=== PATIENT | male | born 1955 | race Caucasian/White ===

== ENCOUNTER 2017-07-31 05:23 | Inpatient (IN) | payer OTHER ==
[~2017-07-31] VITALS: Ht 180.3 cm; Wt 88.7 kg
[~2017-07-31 05:23] MED LIST: AMBI5TAB; CYCL5TAB PO; DIAZ5 PO; INDO75CA23 PO; LACTCAP7 PO; MINO50TA PO; OXYC-360 PO; TAB-TAB PO; VIAG25TA PO
[2017-07-31] MEDS ORDERED: VANCOMYCIN 1 GM/200 ML INJ 200 ML IV SCH (05:45)
[2017-07-31] MEDS ORDERED: FAMOTIDINE 20 MG/2 ML VIAL IV PUSH ONE (05:45)
[2017-07-31] MEDS ORDERED: DEXAMETHASONE SOD PHOS 20 MG/5 ML VIAL IV PUSH ONE (05:45)
[2017-07-31] MEDS ORDERED: ACETAMINOPHEN 1000 MG/100 ML 100 ML IV ONE (05:45)
[2017-07-31] MEDS ORDERED: SODIUM CHLORID 0.9% 500 ML IV PRN (05:45)
[2017-07-31] MEDS ORDERED: CHLORHEXIDINE GLUCONATE 2 % 1 PACK (2 CLOTHS) TOPICAL PRN (05:45)
[2017-07-31] MEDS ORDERED: LACTATED RINGER'S 1000 ML IV PRN (05:45)
[2017-07-31] MEDS ORDERED: CELECOXIB 200 MG CAP PO ONE (05:45)
[2017-07-31] MEDS ORDERED: METOPROLOL TARTRATE 25 MG TAB PO PRN (05:45)
[2017-07-31] MEDS ORDERED: ONDANSETRON HCL 4 MG/2 ML VIAL IV PUSH ONE (05:45)
[2017-07-31] MEDS ORDERED: CHLORHEXIDINE GLUCONATE 4% SOLN 120 ML BTL TOPICAL SCH (05:45)
[2017-07-31] MEDS ORDERED: POVIDONE IODINE 5% (ANTISEPSIS KIT) 4 APPLICATIONS EACH NARE PRN (05:45)
[2017-07-31] MEDS ORDERED: GABAPENTIN 300 MG CAP PO ONE (05:45)
[2017-07-31] MEDS ORDERED: CYMB60CA PO (05:58)
[2017-07-31] MEDS ORDERED: AMBI10TA PO (05:58)
[2017-07-31] MEDS ORDERED: DIAZ5 PO (05:58)
[2017-07-31] MEDS ORDERED: OXYC-395 PO (05:58)
[2017-07-31] MEDS ORDERED: CYMB30CA PO (05:58)
[2017-07-31] MEDS ORDERED: GENTAMICIN SULFATE 80 MG/2 ML VIAL ONE (06:16)
[2017-07-31] MEDS ORDERED: TRANEXAMIC ACID IV SCH (07:00)
[2017-07-31] MEDS ORDERED: SODIUM CHLORIDE 0.9% IV SCH (07:00)
[2017-07-31] MEDS ORDERED: BUPIVACAINE-EPI PF 0.25% INJ 20 ML, BUPIVACAINE LIPOSO PF 1.3% INJ 20 ML in SODIUM CHLO... P-ARTICULR SCH (07:00)
[2017-07-31] MEDS ORDERED: ASPI1CHW4 CHEW (07:37)
[2017-07-31] MEDS ORDERED: HYDR-3583 PO (07:37)
[2017-07-31] MEDS ORDERED: ceFAZolin INJ 1,000 MG VIAL IV ONE ×2 (08:19→12:00)
[2017-07-31] MEDS ORDERED: ONDANSETRON HCL 4 MG/2 ML VIAL IVP PRN (08:45)
--- NOTE | 2017-07-31 08:49 | PD.OP ---
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 My P.A. presence was necessary throughout this case for the manipulation and positioning of the surgical extremity. My P.A. was assisting me throughout the duration of this procedure. The skill set of a physician anesthesiologist assistant certified was medically necessary to complete this procedure. During the surgical case the operating room surgical technologist was working at the back table and the physician anesthesiologist assistant certified was directly assisting me. Operation and Findings: PLAN OF ACTIVITY Weight bear as tolerated. IMPLANTS USED DePuy Corail size [13] collared stem with a size [54] Perkinston Gription cup, [54 /36] Altrx poly liner, and a [36+1] ceramic Biolox ceramic head. DETAILS OF PROCEDURE: This patient has a long history of hip pain. 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 Patient has developed severe pain and is unable to ambulate without a walker. The patient had radiographic evidence of joint space narrowing with bone-on- bone arthritis and osteophytes around the acetabulum as well as the femoral head. There was also some cystic changes. The patient failed conservative treatment with pain medications, anti-inflammatories, physical therapy, assistive devices including a cane, as well as therapeutic injection of the hip. Patient's hip arthritis was limiting his ability to ambulate and perform activities of daily living. The patient wished to proceed with surgery and informed consent was obtained. Operative site was marked. I discussed both posterior approach and anterior approach with the patient and decision was made for anterior approach. Patient was brought to OR and placed on OR table. IV sedation and general anesthesia was administered by anesthesiologist. Patient positioned on a Sun table and was given IV antibiotics. Time-out procedure was performed. The hip and thigh were prepped with alcohol followed by Hibiclens. The thigh was draped in the usual sterile fashion. Clean Air Suite was used for this procedure. The procedure began with a 5-inch incision over the anterolateral thigh. Subcutaneous tissue was dissected with Bovie. The fascia over the tensa fasciae latae was incised. Care was taken to avoid injury to the lateral femoral cutaneous nerve. The tensor muscle was retracted laterally. Sartorius was retracted medially. Retractors were now placed. The reflected head of the rectus is now elevated. A capsulotomy was performed over the anterior head capsule. Sutures were placed to help retract the capsule. At this point the femoral head and neck were identified. With soft tissue protected, oscillating saw was used to make a cut through the femoral neck, the femoral head was now removed. At this point attention was turned to preparation of the acetabulum. The labrum was excised. The acetabulum was sequentially reamed up to size [54]. A Perkinston cup was now placed. Fluoroscopy was used to aid in identification of appropriate version. Cup was fully impacted and found to have excellent fit. Hole eliminator was now placed. The liner was now impacted into the cup. At this point the hip was externally rotated. A hook was placed around the proximal femur. The capsule was released off the lateral and medial femur. The hip was now extended and adducted. Retractors were placed around the proximal femur to allow for exposure. A box osteotome was used to remove the lateral cortex of the femoral neck. A broach was used to help lateralize the prosthesis. Canal finder was used to create a path down the canal. Next, the canal was sequentially broached up to size [13]. This was found to be an excellent fit. Calcar planer was placed. A standard head was placed, and the hip was reduced. The hip was found to have excellent stability with good range of motion. The leg lengths were measured under fluoroscopy and found to be equal compared to preoperatively. Trial broach was removed. The Corail stem was opened. Stem was fully impacted into the proximal femur in appropriate version. The femoral head was placed. The hip was again reduced. Fluoroscopy confirmed excellent alignment of prosthesis. The wound was thoroughly irrigated and capsule was closed with #1 Vicryl. The fascia over the tensor fasciae muscle was closed with #1 Vicryl, subcutaneous tissue was closed with 3-0 Vicryl and the skin was closed with emelia and Dermabond skin closure. The capsule layers, muscle, and subcutaneous tissue were injected with a mixture of saline and bupivicaine. Dressings were applied. The patient was transferred to Recovery Room in stable condition. Adis Koch MD Jul 31, 2017 08:49
[2017-07-31] MEDS ORDERED: DO NOT ADM ANY ANTICOAGULANT DRUGS PRN (09:17)
[2017-07-31] MEDS ORDERED: KETOROLAC TROMETHAMINE 30 MG/ML (IVP) VIAL IV PUSH SCH (09:45)
[2017-07-31] MEDS: ASPIRIN 81 MG CHEW TAB CHEW SCH ×2 (10:00→20:53)
[2017-07-31] MEDS ORDERED: ACETAMINOPHEN/HYDROcodone 325 MG/5 MG TAB PO PRN (10:00)
[2017-07-31] MEDS ORDERED: Post-op Orders (for Pharmacy) XX ONE (10:00)
[2017-07-31] MEDS: ACETAMINOPHEN 1000 MG/100 ML 100 ML IV SCH ×2 (10:00→20:54)
[2017-07-31] MEDS ORDERED: MORPHINE SULFATE 4 MG/ML INJ IV PUSH PRN (10:00)
[2017-07-31] MEDS ORDERED: ACETAMINOPHEN/HYDROcodone 325 MG/7.5 MG TAB PO PRN (10:00)
[2017-07-31] MEDS: LACTATED RINGER'S 1000 ML INJ 1,000 ML IV SCH ×3 (10:00→23:30)
[2017-07-31] MEDS ORDERED: TRANEXAMIC ACID INJ 1,000 MG in SODIUM CHLORIDE 0.9% INJ 100 ML IV ONE (10:00)
[2017-07-31] MEDS ORDERED: NALOXONE HCL 0.4 MG/ML AMP IV PUSH PRN (10:00)
[2017-07-31] MEDS ORDERED: *morphine SULFATE 8 MG/ML PERIprocedure ONLY ONE (10:08)
--- NOTE | 2017-07-31 10:37 | RADRPT ---
EXAM DATE/TIME: 07/31/2017 10:26 [facility] COMPARISON: No previous studies available for comparison. INDICATIONS : Post op left hip surgery. MEDICAL HISTORY : None. SURGICAL HISTORY : None. ENCOUNTER: Initial ACUITY: 1 day PAIN SCORE: 0/10 LOCATION: Left Hip and pelvis. FINDINGS: A lateral view of the left hip with AP pelvis was obtained. Post surgical changes following total lef t hip arthroplasty are noted. Acetabular and femoral components are well-seated in satisfactory align ed. There is no evidence of acute fracture. Mild to moderate arthropathy is noted of the right hip. There is joint space narrowing, subchondral s clerosis and marginal spurring. CONCLUSION: 1. Satisfactory postoperative appearance of left hip following total arthroplasty 2. Moderate arthropathy of the right hip. 3. No acute bony abnormalities. Rafita Nava MD on July 31, 2017 at 10:33 Board Certified Radiologist. This report was verified electronically.
[2017-07-31] MEDS ORDERED: *MEPERIDINE 25 MG INJ VIAL PERIprocedural Use ONLY ONE (11:35)
[2017-07-31] MEDS ORDERED: STERILE WATER FOR INJECTION 20 ML VIAL IV ONE (12:00)
[2017-07-31] MEDS ORDERED: LIDOCAINE HCL 1% PF 5 ML SYRINGE OTHER ONE (12:00)
[2017-07-31] MEDS ORDERED: ePHEDrine/NS 25 MG/5 ML SYRINGE IV ONE (12:00)
[2017-07-31] MEDS ORDERED: PHENYLEPH/NS 1000 MCG/10 ML SYR IV ONE (12:00)
[2017-07-31] MEDS ORDERED: NEOSTIGMINE 5 MG/5 ML SYRINGE IV PUSH ONE (12:00)
[2017-07-31] MEDS ORDERED: PROPOFOL 200 MG/20 ML AMP IV ONE (12:00)
[2017-07-31] MEDS ORDERED: GLYCOPYRROLATE 1 MG/5 ML SYRINGE IV PUSH ONE (12:00)
[2017-07-31] MEDS ORDERED: ROCURONIUM INJ 50 MG/5 ML SYRINGE IV PUSH ONE (12:00)
[2017-07-31] MEDS ORDERED: LABETALOL HCL 100 MG/20 ML VIAL IV ONE (12:00)
[2017-07-31] MEDS ORDERED: LACTATED RINGER'S 1000 ML INJ 2,000 ML IV ONE (12:00)
--- NOTE | 2017-07-31 12:59 | RADRPT ---
EXAM DATE/TIME: 07/31/2017 07:27 [facility] COMPARISON: No previous studies available for comparison. INDICATIONS : Left total hip arthroplasty. MEDICAL HISTORY : None. SURGICAL HISTORY : None. ENCOUNTER: Initial ACUITY: 1 day PAIN SCORE: Non-responsive. LOCATION: Left hip FINDINGS: 3 spot fluoroscopic images obtained in the operating room during a procedure demonstrate acetabular a nd proximal femoral hardware in place related to total hip arthroplasty. The components appear non-ce mented and the femoral component has a medial collar. No unexpected finding is seen. CONCLUSION: Left total hip arthroplasty, as above. Ellis Barkley MD on July 31, 2017 at 12:57 Board Certified Radiologist. This report was verified electronically.
[2017-07-31] MEDS ORDERED: CEFAZOLIN INJ 2,000 MG in SODIUM CHLORIDE 0.9% INJ 100 ML IV SCH (13:00)
[2017-07-31] MEDS: ACETAMINOPHEN/HYDROcodone 325 MG/10 MG TAB PO PRN ×3 (13:06→20:54)
[2017-07-31] MEDS: CELECOXIB 200 MG CAP PO SCH ×2 (13:10→20:53)
[2017-07-31 15:37] VITALS: BP 155/77; PULSE 84; RESP 19; TEMP 97.7; O2SAT 98
[2017-07-31] MEDS: VANCOMYCIN INJ 1,000 MG in SODIUM CHLOR 0.9% 250 ML INJ 250 ML IV SCH (17:44)
[2017-07-31] MEDS: ceFAZolin 2 GM PREMIX 50 ML IV SCH (18:40)
[2017-07-31 20:00] VITALS: BP 149/72; PULSE 81; RESP 18; TEMP 98.3; O2SAT 95
[2017-08-01] VITALS (7 sets, daily range): BP systolic 132–188; BP diastolic 70–91; PULSE 65–93; RESP 16–19; TEMP 97.9–98.4; O2SAT 93–98
[2017-08-01] MEDS: ceFAZolin 2 GM PREMIX 50 ML IV SCH (00:03)
[2017-08-01] MEDS: ACETAMINOPHEN/HYDROcodone 325 MG/10 MG TAB PO PRN ×3 (00:03→06:15)
[2017-08-01 05:05] LABS: HEMATOCRIT 35.8 % (39.0-51.0); HEMOGLOBIN 12.2 GM/DL (13.0-17.0)
[2017-08-01] MEDS: VANCOMYCIN INJ 1,000 MG in SODIUM CHLOR 0.9% 250 ML INJ 250 ML IV SCH (06:15)
[2017-08-01] MEDS ORDERED: PERC10TA27 PO (06:27)
--- NOTE | 2017-08-01 06:29 | PD.ORT.PN ---
Subjective Subjective Remarks POD 1 s/p Left GRACE states pain controlled overnight and walked down hallway with therapy. reports that started increased hip pain 1 houir ago Objective Vitals Vital Signs Date Time Temp Pulse Resp B/P (MAP) Pulse Ox O2 Delivery O2 Flow Rate FiO2 08/01/17 04:00 98.3 79 18 165/87 (113) 97 08/01/17 00:00 97.9 84 18 162/86 (111) 97 07/31/17 21:53 21 07/31/17 20:00 98.3 81 18 149/72 (97) 95 07/31/17 15:37 97.7 84 19 155/77 (103) 98 07/31/17 11:45 97.6 86 20 141/82 (101) 97 Nasal Cannula 2 07/31/17 11:15 92 20 149/92 (111) 97 Nasal Cannula 2 07/31/17 10:15 92 20 157/83 (107) 97 Nasal Cannula 2 07/31/17 10:00 91 20 157/93 (114) 100 Nasal Cannula 2 07/31/17 09:45 91 20 156/86 (109) 100 Nasal Cannula 2 07/31/17 09:30 86 20 150/82 (104) 98 Nasal Cannula 2 07/31/17 09:16 97.9 91 20 148/78 (101) 94 Nasal Cannula 2 I/O 07/31/17 07/31/17 07/31/17 08/01/17 08/01/17 08/01/17 07:00 15:00 23:00 07:00 15:00 23:00 Intake Total 2000 ml Output Total 1300 ml Balance 700 ml Other 2000 ml Output Urine Total 1000 ml Estimated Blood Loss 300 ml # Voids 2 Result Diagram: 08/01/17 0415 Imaging Last 24 hours Impressions Hip and Pelvis X-Ray 07/31/17 0843 Signed Impressions: Service Date/Time: July 10:26 - CONCLUSION: 1. Satisfactory postoperative appearance of left hip following total arthroplasty 2. Moderate arthropathy of the right hip. 3. No acute bony abnormalities. Rafita Nava MD Objective Remarks LLE: dressing claen and dry.intact. NVI Assessment & Plan Assessment and Plan 1) Left Anterior GRACE - POD 1 -WBAT -work with therapy -maintain dressing on hip -begin daily dressing changes with primapore on POD 6 -CM for rehab -patient expresses desire to go to rehab -plan for Dc when arrangements made -cleared for DC -f/u with [facility] or [facility] ni 2 weeks Harsh Silva/First Kirsten FRAGOSO Aug 01, 2017 06:29
[2017-08-01] MEDS ORDERED: ZOLPIDEM TARTRATE 10 MG TAB PO PRN (06:30)
[2017-08-01] MEDS: ASPIRIN 81 MG CHEW TAB CHEW SCH ×2 (09:07→20:14)
[2017-08-01] MEDS: CELECOXIB 200 MG CAP PO SCH ×2 (09:07→20:14)
[2017-08-01] MEDS: CYCLOBENZAPRINE HCL 10 MG TAB PO SCH ×2 (09:07→20:15)
[2017-08-01] MEDS: DULoxetine HCl DR 30 MG CAP PO SCH (09:07)
[2017-08-01] MEDS: oxyCODONE/ACETAMINOPHEN 10 MG/325 MG TAB PO PRN ×5 (09:09→23:51)
[2017-08-01] MEDS: ACETAMINOPHEN 1000 MG/100 ML 100 ML IV SCH ×2 (10:37→21:54)
[2017-08-01] MEDS: LACTATED RINGER'S 1000 ML INJ 1,000 ML IV SCH (11:00)
[2017-08-01] MEDS: DOCUSATE SODIUM 100 MG CAP PO SCH (20:14)
[2017-08-01] MEDS: DULoxetine HCl DR 60 MG CAP PO SCH (20:15)
[2017-08-02 00:08] VITALS: BP 168/83; PULSE 85; RESP 18; TEMP 98.7; O2SAT 97
[2017-08-02] MEDS: oxyCODONE/ACETAMINOPHEN 10 MG/325 MG TAB PO PRN ×5 (04:19→20:20)
[2017-08-02 08:00] VITALS: BP 179/94; PULSE 89; RESP 16; TEMP 98.4; O2SAT 96
[2017-08-02] MEDS: DULoxetine HCl DR 30 MG CAP PO SCH (08:26)
[2017-08-02] MEDS: ASPIRIN 81 MG CHEW TAB CHEW SCH ×2 (08:27→20:21)
[2017-08-02] MEDS: CYCLOBENZAPRINE HCL 10 MG TAB PO SCH ×2 (08:27→20:20)
[2017-08-02] MEDS: DOCUSATE SODIUM 100 MG CAP PO SCH ×2 (08:27→20:20)
[2017-08-02] MEDS: CELECOXIB 200 MG CAP PO SCH ×2 (08:27→20:18)
[2017-08-02 12:00] VITALS: BP 160/82; PULSE 80; RESP 16; TEMP 98.3; O2SAT 100
[2017-08-02] MEDS: LACTATED RINGER'S 1000 ML INJ 1,000 ML IV SCH (12:00)
[2017-08-02 16:00] VITALS: BP 165/87; PULSE 103; RESP 16; TEMP 98.7; O2SAT 95
[2017-08-02 20:12] VITALS: BP 139/88; PULSE 110; RESP 19; TEMP 98.5; O2SAT 94
--- NOTE | 2017-08-02 20:18 | PD.ORT.PN ---
Subjective Subjective Remarks no issues. Objective Vitals Vital Signs Date Time Temp Pulse Resp B/P (MAP) Pulse Ox O2 Delivery O2 Flow Rate FiO2 08/02/17 16:00 98.7 103 16 165/87 (113) 95 08/02/17 08:00 98.4 89 16 179/94 (122) 96 08/02/17 00:08 98.7 85 18 168/83 (111) 97 I/O 08/01/17 08/01/17 08/01/17 08/02/17 08/02/17 08/02/17 07:00 15:00 23:00 07:00 15:00 23:00 Intake Total 480 ml 1400 ml 360 ml 700 ml Output Total 1200 ml 1600 ml 2225 ml Balance -720 ml -200 ml -1865 ml 700 ml Intake Oral 480 ml 1300 ml 360 ml 700 ml IV Total 100 ml Output Urine Total 1200 ml 1600 ml 2225 ml # Voids 1 3 # Bowel Movements 0 1 Result Diagram: 08/01/17 0415 Imaging Last 24 hours Impressions Hip and Pelvis X-Ray 07/31/17 0843 Signed Impressions: Service Date/Time: July 10:26 - CONCLUSION: 1. Satisfactory postoperative appearance of left hip following total arthroplasty 2. Moderate arthropathy of the right hip. 3. No acute bony abnormalities. Rafita Nava MD Objective Remarks LLE: dressing claen and dry.intact. NVI Assessment & Plan Assessment and Plan 1) Left Anterior GRACE - POD 2 doing well -WBAT -maintain dressing on hip -begin daily dressing changes with primapore on POD 6 -CM for rehab -patient expresses desire to go to rehab -DC planning -cleared for DC -f/u with [facility] or [facility] ni 2 weeks Akil Hunt Jr., MD Aug 02, 2017 20:18
[2017-08-02] MEDS: DULoxetine HCl DR 60 MG CAP PO SCH (20:21)
[2017-08-03] MEDS: oxyCODONE/ACETAMINOPHEN 10 MG/325 MG TAB PO PRN ×4 (00:29→12:16)
[2017-08-03 00:30] VITALS: BP 142/82; PULSE 95; RESP 18; TEMP 98.3; O2SAT 96
[2017-08-03] MEDS: LACTATED RINGER'S 1000 ML INJ 1,000 ML IV SCH ×2 (00:30→13:00)
[2017-08-03 08:00] VITALS: BP 146/77; PULSE 91; RESP 16; TEMP 98; O2SAT 98
[2017-08-03] MEDS: ASPIRIN 81 MG CHEW TAB CHEW SCH (08:31)
[2017-08-03] MEDS: DULoxetine HCl DR 30 MG CAP PO SCH (08:31)
[2017-08-03] MEDS: CELECOXIB 200 MG CAP PO SCH (08:32)
[2017-08-03] MEDS: CYCLOBENZAPRINE HCL 10 MG TAB PO SCH (08:32)
[2017-08-03] MEDS: DOCUSATE SODIUM 100 MG CAP PO SCH (08:32)
--- NOTE | 2017-08-03 14:16 | PD.ORT.PN ---
Subjective Subjective Remarks no issues. Objective Vitals Vital Signs Date Time Temp Pulse Resp B/P (MAP) Pulse Ox O2 Delivery O2 Flow Rate FiO2 08/03/17 08:00 98.0 91 16 146/77 (100) 98 08/03/17 05:24 18 08/03/17 00:30 98.3 95 18 142/82 (102) 96 08/02/17 21:41 Room Air 08/02/17 21:33 21 08/02/17 20:12 98.5 110 19 139/88 (105) 94 08/02/17 16:00 98.7 103 16 165/87 (113) 95 I/O 08/02/17 08/02/17 08/02/17 08/03/17 08/03/17 08/03/17 07:00 15:00 23:00 07:00 15:00 23:00 Intake Total 360 ml 700 ml 480 ml Output Total 2225 ml Balance -1865 ml 700 ml 480 ml Intake Oral 360 ml 700 ml 480 ml Output Urine Total 2225 ml # Voids 1 3 1 # Bowel Movements 1 0 Result Diagram: 08/01/17 0415 Imaging Last 24 hours Impressions Hip and Pelvis X-Ray 07/31/17 0843 Signed Impressions: Service Date/Time: July 10:26 - CONCLUSION: 1. Satisfactory postoperative appearance of left hip following total arthroplasty 2. Moderate arthropathy of the right hip. 3. No acute bony abnormalities. Rafita Nava MD Objective Remarks LLE: dressing claen and dry.intact. NVI Assessment & Plan Assessment and Plan 1) Left Anterior GRACE - POD 3 doing well -WBAT -maintain dressing on hip -begin daily dressing changes with primapore on POD 6 -CM for rehab -patient expresses desire to go to rehab -DC today -f/u with [facility] or [facility] fong 2 weeks Akil Hunt Jr., MD Aug 03, 2017 14:16
== END 2017-08-03 14:39 | disposition home health service (06) | DRG 470 ==
LOC: HSDI 05:23 → N06B 12:05
PROVIDERS: ADMIT Orthopaedic Surgery Orthopaedic Trauma; ATTEND Orthopaedic Surgery Orthopaedic Trauma
PROC: 0SRB04A Replacement of Left Hip Joint with Ceramic on Polyethylene Synthetic Substitute, Uncemented, Open Approach (ICD-10-PCS; principal; 2017-07-31 06:51)
DX: M87.852 Other osteonecrosis, left femur (principal); F32.9 Major depressive disorder, single episode, unspecified; B19.20 Unspecified viral hepatitis C without hepatic coma; Z87.891 Personal history of nicotine dependence
CPT/HCPCS: 73501; 73502; 76000; 85014; 85018; 86850; 86900; 86901; 88305; 88311; C1776; C9290; J0131; J0690; J1100; J1580; J1885; J2175; J2270; J2370; J2405; J2710; J3370; J7050; J7120

== ENCOUNTER 2017-09-05 06:48 | Inpatient (IN) | payer OTHER ==
[~2017-09-05] VITALS: Ht 180.3 cm; Wt 91.0 kg
[~2017-09-05 06:48] MED LIST changes: +AMBI10TA PO; -AMBI5TAB; +ASPI1CHW4 CHEW; +CYMB30CA PO; +CYMB60CA PO; +HYDR-3583 PO; -INDO75CA23 PO; -LACTCAP7 PO; -MINO50TA PO; -OXYC-360 PO; +PERC10TA27 PO; -TAB-TAB PO; -VIAG25TA PO
[2017-09-05] MEDS ORDERED: LACTATED RINGER'S 1000 ML IV PRN (07:15)
[2017-09-05] MEDS ORDERED: CHLORHEXIDINE GLUCONATE 4% SOLN 120 ML BTL TOPICAL SCH (07:15)
[2017-09-05] MEDS ORDERED: DEXAMETHASONE SOD PHOS 20 MG/5 ML VIAL IV PUSH ONE (07:15)
[2017-09-05] MEDS ORDERED: EXPAREL PERI-ARTICULAR INJECTION (TOTAL VOL. 60 ML) P-ARTICULR SCH ×2 (07:15)
[2017-09-05] MEDS ORDERED: GABAPENTIN 300 MG CAP PO ONE (07:15)
[2017-09-05] MEDS ORDERED: ACETAMINOPHEN 1000 MG/100 ML 100 ML IV ONE ×2 (07:15→15:54)
[2017-09-05] MEDS ORDERED: SODIUM CHLORID 0.9% 500 ML IV PRN (07:15)
[2017-09-05] MEDS ORDERED: CELECOXIB 200 MG CAP PO ONE (07:15)
[2017-09-05] MEDS ORDERED: METOPROLOL TARTRATE 25 MG TAB PO PRN (07:15)
[2017-09-05] MEDS ORDERED: ceFAZolin 2 GM PREMIX 50 ML IV SCH (07:15)
[2017-09-05] MEDS ORDERED: POVIDONE IODINE 5% (ANTISEPSIS KIT) 4 APPLICATIONS EACH NARE PRN (07:15)
[2017-09-05] MEDS ORDERED: VANCOMYCIN 1000 MG/NS 250 ML (for <70 kg) IV SCH ×2 (07:15)
[2017-09-05] MEDS ORDERED: ONDANSETRON HCL 4 MG/2 ML VIAL IV PUSH ONE ×2 (07:15→12:00)
[2017-09-05] MEDS ORDERED: CHLORHEXIDINE GLUCONATE 2 % 1 PACK (2 CLOTHS) TOPICAL PRN (07:15)
[2017-09-05] MEDS ORDERED: FAMOTIDINE 20 MG/2 ML VIAL IV PUSH ONE (07:15)
[2017-09-05] MEDS ORDERED: HYDR-3580 PO (08:03)
[2017-09-05] MEDS ORDERED: ONDANSETRON ODT 4 MG TAB ONE (08:14)
[2017-09-05] MEDS ORDERED: TRANEXAMIC ACID INJ 1,320 MG in SODIUM CHLORIDE 0.9% INJ 100 ML IV SCH (10:00)
[2017-09-05] MEDS ORDERED: GLYCOPYRROLATE 1 MG/5 ML SYRINGE IV PUSH ONE (12:00)
[2017-09-05] MEDS ORDERED: ESMOLOL HCL 100 MG/10 ML VIAL IV ONE (12:00)
[2017-09-05] MEDS ORDERED: PROPOFOL 200 MG/20 ML AMP IV ONE (12:00)
[2017-09-05] MEDS ORDERED: KETOROLAC TROMETHAMINE 30 MG/ML (IVP) VIAL IV PUSH ONE (12:00)
[2017-09-05] MEDS ORDERED: ROCURONIUM INJ 50 MG/5 ML SYRINGE IV PUSH ONE (12:00)
[2017-09-05] MEDS ORDERED: MORPHINE SULFATE 4 MG/ML INJ ONE (12:00)
[2017-09-05] MEDS ORDERED: PHENYLEPH/NS 1000 MCG/10 ML SYR IV ONE (12:00)
[2017-09-05] MEDS ORDERED: NEOSTIGMINE 5 MG/5 ML SYRINGE IV PUSH ONE (12:00)
[2017-09-05] MEDS ORDERED: LIDOCAINE HCL 1% PF 5 ML SYRINGE OTHER ONE (12:00)
[2017-09-05] MEDS ORDERED: ceFAZolin INJ 1,000 MG VIAL ONE (12:14)
[2017-09-05] MEDS ORDERED: TOBRAMYCIN 1200 MG VIAL (for ortho/sterile core) OTHER ONE ×2 (12:14→14:10)
[2017-09-05] MEDS ORDERED: GENTAMICIN SULFATE 80 MG/2 ML VIAL ONE (12:14)
[2017-09-05] MEDS ORDERED: VANCOMYCIN HCL 1000 MG VIAL ONE ×2 (12:14→14:10)
[2017-09-05] MEDS ORDERED: MORPHINE SULFATE 4 MG/ML INJ IV ONE (12:30)
[2017-09-05] MEDS ORDERED: BACITRACIN TOP OINT 15 GM TUBE ONE (14:10)
[2017-09-05] MEDS ORDERED: KETAMINE HCL 500 MG/10 ML VIAL ONE (14:36)
--- NOTE | 2017-09-05 15:23 | PD.ORT.PN ---
Subjective Subjective Remarks Patient is 5 weeks status post anterior total hip arthroplasty. He developed pain, redness, and swelling of his incision over the past few days. He developed purulent drainage. He is brought to surgery for irrigation and debridement. Objective Vitals Vital Signs Date Time Temp Pulse Resp B/P (MAP) Pulse Ox O2 Delivery O2 Flow Rate FiO2 09/05/17 08:14 99.9 119 20 155/87 (109) 95 Objective Remarks Patient has clean dry dressing on left hip. Pain relatively well controlled. Neurovascular intact left leg Assessment & Plan Assessment and Plan Postop day #0 status post removal of left total hip arthroplasty components with placement of antibiotic spacer. Infectious disease consult for IV antibiotics Pathology positive for gram-positive cocci Cultures pending Toe-touch weightbearing left leg Patient will need staged procedure for reimplantation of left total hip in approximately 8 weeks. Adis Tavares MD September 05, 2017 15:23
[2017-09-05] MEDS: LACTATED RINGER'S 1000 ML INJ 1,000 ML IV SCH (15:30)
[2017-09-05] MEDS ORDERED: Post-op Orders (for Pharmacy) XX ONE (15:30)
[2017-09-05] MEDS ORDERED: ONDANSETRON ODT 4 MG TAB PO PRN (15:30)
[2017-09-05] MEDS ORDERED: DIAZEPAM 5 MG TAB PO PRN (15:30)
[2017-09-05] MEDS ORDERED: ACETAMINOPHEN/HYDROcodone 325 MG/7.5 MG TAB PO PRN (15:30)
[2017-09-05] MEDS ORDERED: ACETAMINOPHEN/HYDROcodone 325 MG/5 MG TAB PO PRN (15:30)
[2017-09-05] MEDS ORDERED: PILL SPLITTER OTHER PRN (15:30)
[2017-09-05] MEDS ORDERED: NALOXONE HCL 0.4 MG/ML AMP IV PUSH PRN (15:30)
[2017-09-05] MEDS ORDERED: DO NOT ADM ANY ANTICOAGULANT DRUGS PRN (15:48)
[2017-09-05] MEDS ORDERED: MIDAZOLAM HCL 2 MG/2 ML VIAL ONE (15:53)
[2017-09-05] MEDS ORDERED: KETAMINE HCL 50 MG/5 ML SYRINGE ONE (15:54)
[2017-09-05] MEDS ORDERED: *morphine SULFATE 4 MG/ML PERIprocedure ONLY ONE (16:21)
[2017-09-05] MEDS ORDERED: TRANEXAMIC ACID INJ 1,000 MG in SODIUM CHLORIDE 0.9% INJ 100 ML IV ONE (17:00)
[2017-09-05 18:00] VITALS: BP 159/90; PULSE 110; RESP 22; TEMP 98.6; O2SAT 98
--- NOTE | 2017-09-05 18:06 | EKG ---
Date Performed: 09/05/2017 Time Performed: 07:44:07 PTAGE: 61 years EKG: SINUS TACHYCARDIA WITH OCCASIONAL SUPRAVENTRICULAR PREMATURE COMPLEXES ABNORMAL RHYTHM ECG NO PREVIOUS TRACING DOCTOR: Susanne Gore Interpretating Date/Time 09/05/2017 17:59:32
[2017-09-05] MEDS: MORPHINE SULFATE 4 MG/ML INJ IV PUSH PRN ×2 (18:14→22:55)
[2017-09-05] MEDS: DULoxetine HCl DR 60 MG CAP PO SCH (19:50)
[2017-09-05] MEDS: CYCLOBENZAPRINE HCL 10 MG TAB PO SCH (19:50)
[2017-09-05] MEDS: ACETAMINOPHEN/HYDROcodone 325 MG/10 MG TAB PO PRN (19:51)
[2017-09-05] MEDS: ceFAZolin 2 GM PREMIX 50 ML IV SCH (19:51)
[2017-09-05 20:00] VITALS: BP 155/79; PULSE 110; RESP 18; TEMP 97.9; O2SAT 97
--- NOTE | 2017-09-05 21:16 | RADRPT ---
EXAM DATE: 09/05/2017 8:58 PM EDT AGE/SEX: 61 years / Male INDICATIONS: Left Hip, placement of antibiotic spacers done in operating room. CLINICAL DATA: This is the patient's subsequent encounter. Patient reports that signs and symptoms h ave been present for 1 day and indicates a pain score of Nonresponsive. MEDICAL/SURGICAL HISTORY: Non-responsive. Non-responsive. COMPARISON: C, HIP LEFT LATERAL ONLY W AP PELVIS, 07/31/2017. . FINDINGS: 2 images are recorded digitally in the operating room using C-arm during placement of proximal femora l spacer device. CONCLUSION: Intraoperative images. Electronically signed by: Jeromy Bangura MD 09/05/2017 9:14 PM EDT
[2017-09-06] VITALS: BP 125/70; PULSE 100; RESP 20; TEMP 97.3; O2SAT 95
[2017-09-06] MEDS: LACTATED RINGER'S 1000 ML INJ 1,000 ML IV SCH ×2 (02:25→17:46)
[2017-09-06] MEDS: ceFAZolin 2 GM PREMIX 50 ML IV SCH ×4 (02:25→20:27)
[2017-09-06] MEDS: VANCOMYCIN INJ 1,000 MG in SODIUM CHLOR 0.9% 250 ML INJ 250 ML IV SCH ×2 (02:26→15:47)
[2017-09-06 07:27] LABS: HEMATOCRIT 31.5 % (39.0-51.0); HEMOGLOBIN 10.5 GM/DL (13.0-17.0)
[2017-09-06 08:00] VITALS: BP 145/77; PULSE 103; RESP 18; TEMP 97.7; O2SAT 95
--- NOTE | 2017-09-06 08:19 | PD.ORT.PN ---
Subjective Subjective Remarks complaining of post op left hip pain, long discussion with patient about operative findings and post-operative care. 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 including explanation of biofilms or americo-prosthetic infections Objective Vitals Vital Signs Date Time Temp Pulse Resp B/P (MAP) Pulse Ox O2 Delivery O2 Flow Rate FiO2 09/06/17 00:00 97.3 100 20 125/70 (88) 95 09/05/17 20:00 97.9 110 18 155/79 (104) 97 09/05/17 18:00 98.6 110 22 159/90 (113) 98 09/05/17 17:20 110 18 147/81 (103) 97 Nasal Cannula 2 09/05/17 16:30 112 18 158/87 (110) 97 Nasal Cannula 2 09/05/17 16:15 115 18 162/88 (112) 100 Nasal Cannula 3 09/05/17 16:00 116 18 152/77 (102) 98 Nasal Cannula 3 09/05/17 15:47 97.8 114 18 148/75 (99) 92 Nasal Cannula 3 09/05/17 08:14 99.9 119 20 155/87 (109) 95 I/O 09/05/17 09/05/17 09/05/17 09/06/17 09/06/17 09/06/17 07:00 15:00 23:00 07:00 15:00 23:00 Intake Total 2539 ml 850 ml Output Total 850 ml 500 ml Balance 1689 ml 350 ml Intake IV Total 339 ml 850 ml Other 2200 ml Output Urine Total 350 ml 500 ml Estimated Blood Loss 500 ml Result Diagram: 09/06/17 0452 Objective Remarks Patient has clean dry dressing on left hip. Pain relatively well controlled. Neurovascular intact left leg Assessment & Plan Assessment and Plan Postop day #1 status post removal of left total hip arthroplasty components with placement of antibiotic spacer. Discuss with Dr. Ashford of Infectious disease Pathology positive for gram-positive cocci Cultures pending Toe-touch weightbearing left leg Patient will need staged procedure for reimplantation of left total hip in approximately 8 weeks. Iban Fisher MD September 06, 2017 08:19
[2017-09-06] MEDS ORDERED: Vancomycin Consult Pharmacy 1 EA OTHER SCH (08:45)
--- NOTE | 2017-09-06 08:48 | PD.CONS ---
History of Present Illness Service Infectious disease Consult Requested By Dr Irish Koch Reason for Consult Evaluate patient with infected left total hip arthroplasty Primary Care Physician Monik Antony Jr, MD Diagnoses: History of Present Illness Patient seen and examined. Records reviewed. Patient is a 61-year-old male, admitted to the hospital for surgery on his left hip. Patient had avascular necrosis of the left hip, and underwent left total hip arthroplasty last month. He was doing well, and his pain improved. He went for 3 week follow-up, and he was doing good at that time. According to the patient about 2 weeks prior to admission, he started having chills. He knew he had a fever, but he did not take his temperature. They would come and go, and he was still able to go to work. About a week prior to admission he started experiencing pain on his left hip. He also noted a spot over the previous incision that had a white spot on it, and also some redness. His symptoms persisted, and he called his orthopedic surgeon on Friday. He was told to monitor his symptoms. The area of white spots started getting bigger, and he had a follow-up visit 1 day prior to admission and after he took a shower that area started draining. He was seen in follow-up, and was brought into the hospital for surgical treatment. Patient underwent removal of all his hardware, and he has an antibiotic prosthesis currently. He has had some low- grade temp since admission. Patient denies any recent dental work. He denies any recent skin infection. He has not had any respiratory complaints, GI or any urinary complaints. Gram stain from surgery has gram-positive cocci. Infectious disease consultation has been requested to evaluate the patient. Review of Systems Constitutional: COMPLAINS OF: Fever, Chills, Night Sweats Eyes: DENIES: Eye pain Ears, nose, mouth, throat: DENIES: Nasal discharge, Oral lesions, Throat pain, Sinus Pain, Toothache Respiratory: DENIES: Cough, Shortness of breath Cardiovascular: DENIES: Chest pain, Syncope, Dyspnea on Exertion Gastrointestinal: DENIES: Abdominal pain, Diarrhea, Nausea, Vomiting, Difficulty Swallowing Genitourinary: DENIES: Hematuria, Dysuria Musculoskeletal: COMPLAINS OF: Joint pain, Joint Swelling Integumentary: DENIES: Pruritus, Rash Hematologic/lymphatic: DENIES: Lymphadenopathy Neurologic: DENIES: Localized weakness Psychiatric: DENIES: Hallucinations Past Family Social History Allergies: Coded Allergies: No Known Allergies (Unverified Allergy, Unknown, 09/05/17) Past Medical History Chronic pain Avascular necrosis of the left hip Arthritis Past Surgical History Back surgery L4-L5 Appendectomy Left total hip arthroplasty July 2017 Active Ordered Medications Current Medications Medications (Trade) Dose Ordered Sig/Kaveh Route Start Time Stop Time Status Last Admin (Chlorhexidine 2% Cloth) 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 09/05/17 07:15 09/08/17 07:14 09/05/17 07:45 Vancomycin HCl 1000 mg/Sodium Chloride 250 ml @ 250 mls/hr Q12H IV 09/06/17 02:00 09/06/17 02:26 (Lovenox Inj) 40 mg Q24H SQ 09/06/17 15:00 ([place] 5-325 Mg) 1 tab Q3H PRN PO 09/05/17 15:30 ([place] 7.5-325 Mg) 1 tab Q3H PRN PO 09/05/17 15:30 ([place] 10-325 Mg) 1 tab Q3H PRN PO 09/05/17 15:30 09/05/17 19:51 (Zofran Odt) 4 mg Q6H PRN PO 09/05/17 15:30 (Colace) 100 mg BID PO 09/06/17 21:00 (Narcan Inj) 0.4 mg UNSCH PRN IV PUSH 09/05/17 15:30 Cefazolin Sodium/ Dextrose 50 ml @ 150 mls/hr Q6H IV 09/05/17 20:00 09/06/17 02:25 Lactated Ringer's 1,000 ml @ 80 mls/hr [id number] IV 09/05/17 15:30 09/06/17 02:25 (Morphine Inj) 3 mg Q3H PRN IV PUSH 09/05/17 15:30 09/05/17 22:55 (CeleBREX) 200 mg BID PO 09/06/17 09:00 (Flexeril) 5 mg BID PO 09/05/17 21:00 09/05/17 19:50 (Valium) 5 mg Q8H PRN PO 09/05/17 15:30 (Cymbalta [address]) 30 mg DAILY PO 09/06/17 09:00 (Cymbalta Dr) 60 mg HS PO 09/05/17 21:00 09/05/17 19:50 (Pill Splitter) 1 ea UNSCH PRN OTHER 09/05/17 15:30 ([facility] Nursing Information) ALL NURSING DEPARTME... UNSCH PRN .XX 09/05/17 15:48 09/06/17 15:47 Family History Noncontributory Social History Ex-smoker No alcohol abuse No illicit drug Physical Exam Vital Signs Vital Signs Date Time Temp Pulse Resp B/P (MAP) Pulse Ox O2 Delivery O2 Flow Rate FiO2 09/06/17 00:00 97.3 100 20 125/70 (88) 95 09/05/17 20:00 97.9 110 18 155/79 (104) 97 09/05/17 18:00 98.6 110 22 159/90 (113) 98 09/05/17 17:20 110 18 147/81 (103) 97 Nasal Cannula 2 09/05/17 16:30 112 18 158/87 (110) 97 Nasal Cannula 2 09/05/17 16:15 115 18 162/88 (112) 100 Nasal Cannula 3 09/05/17 16:00 116 18 152/77 (102) 98 Nasal Cannula 3 09/05/17 15:47 97.8 114 18 148/75 (99) 92 Nasal Cannula 3 Physical Exam GENERAL: Patient is a well-nourished, well-developed male, awake and alert, not in respiratory distress. SKIN: Warm and dry. No generalized rash, no ecchymoses and no evidence of embolic lesions. HEAD: Atraumatic. Normocephalic. No temporal wasting, or tenderness. EYES: [place] conjunctiva. No petechia or hemorrhage. Pupils equal, round and reactive to light. Extraocular movements full and intact. No scleral icterus. No injection or drainage. EARS, NOSE AND THROAT: Nose without bleeding or purulent nasal discharge. No sinus tenderness. Mucous membranes pink and moist. No oral lesions noted. No exudate. No oral thrush. NECK: Trachea midline. Supple and not tender, no meningeal signs CARDIOVASCULAR: Regular rate and rhythm. No murmurs, rubs or gallops heard RESPIRATORY: Clear to auscultation. Breath sounds equal bilaterally. No rales , wheezing or rhonchi ABDOMEN: Soft, non-tender, nondistended. Bowel sounds present and normoactive. No guarding. No rebound. No organomegaly. EXTREMITIES: No clubbing, cyanosis or edema. Has dressing over L hip/thigh area wit some breakthrough blood on dressing. No calf tenderness. Well perfused and warm. NEUROLOGICAL: Awake and alert. Cranial nerves grossly intact. Motor grossly within normal limits. PSYCHIATRIC: Normal affect, calm and cooperative. LINE: No evidence of infection Laboratory Laboratory Tests Test 09/06/17 04:52 Hemoglobin 10.5 Hematocrit 31.5 Date/Time Source Procedure Growth Status 09/05/17 13:55 Tissue Hip Acid Fast Stain Pending Received 09/05/17 13:55 Tissue Hip Mycobacterial Culture Pending Received Result Diagram: 09/06/17 0452 Imaging RADIOLOGY STUDIES/FILMS REVIEWED Hip X-Ray 09/05/17 0000 Signed Impressions: CONCLUSION: Intraoperative images. Assessment and Plan Assessment and Plan IMPRESSION Infection left total hip arthroplasty, status post removal of hardware -Gram stain with gram-positive cocci, staph and strep the usual pathogens causing infection of the prosthesis RECOMMENDATION 2 blood cultures Get a UA Get some baseline blood work including CBC, CMP, sed rate, and CRP Continue Ancef and vancomycin Follow cultures and adjust antibiotic He will need 6 weeks of IV antibiotics 2 stage procedure has been planned by orthopedic Monitor progress I will follow along with you Thank you for this consultation Discussed Condition With Discussed with Dr. Fisher Explained plan to the patient, and answered all his questions - spent about 40 minutes discussing his infection, treatment plan and answering all his questions Margi Ashford MD September 06, 2017 08:48
[2017-09-06] MEDS: DULoxetine HCl DR 30 MG CAP PO SCH ×2 (09:00→09:16)
[2017-09-06] MEDS: CYCLOBENZAPRINE HCL 10 MG TAB PO SCH ×2 (09:16→20:27)
[2017-09-06] MEDS: CELECOXIB 200 MG CAP PO SCH ×2 (09:16→20:26)
[2017-09-06] MEDS: ACETAMINOPHEN/HYDROcodone 325 MG/10 MG TAB PO PRN ×5 (09:16→23:29)
[2017-09-06] MEDS: MORPHINE SULFATE 4 MG/ML INJ IV PUSH PRN ×4 (10:20→22:03)
[2017-09-06 11:20] LABS: AUTOMATED NEUTROPHIL # 13.5 TH/MM3 (1.8-7.7); BASOPHIL % 0.2 % (0.0-2.0); EOSINOPHIL % 0.1 % (0.0-4.0); HEMATOCRIT 29.1 % (39.0-51.0); HEMOGLOBIN 9.8 GM/DL (13.0-17.0); LYMPH % 8.8 % (9.0-44.0); LYMPHOCYTE # 1.5 TH/MM3 (1.0-4.8); MEAN CELL VOLUME 86.4 FL (80.0-100.0); MEAN CORPUSCULAR HGB CONC 33.5 % (32.0-36.0); MEAN PLATELET VOLUME 7.1 FL (7.0-11.0); MONO % 9.7 % (0.0-8.0); MONOCYTE # 1.6 TH/MM3 (0-0.9); NEUT % 81.2 % (16.0-70.0); PLATELET COUNT 537 TH/MM3 (150-450); RED BLOOD COUNT 3.37 MIL/MM3 (4.50-5.90); WHITE BLOOD COUNT 16.6 TH/MM3 (4.0-11.0)
[2017-09-06 11:35] LABS: ALBUMIN 2.3 GM/DL (3.4-5.0); ALT (GPT) 63 U/L (12-78); AST (GOT) 56 U/L (15-37); BICARBONATE 28.6 MEQ/L (21.0-32.0); BLOOD UREA NITROGEN 11 MG/DL (7-18); CALCIUM 8.7 MG/DL (8.5-10.1); CHLORIDE 101 MEQ/L (98-107); CREATININE 0.73 MG/DL (0.60-1.30); GLOMERULAR FILTRATION RATE 110 ML/MIN (>89); GLUCOSE,RANDOM 123 MG/DL (74-106); SODIUM (NA) 139 MEQ/L (136-145)
[2017-09-06 11:37] LABS: ALKALINE PHOSPHATASE 162 U/L (45-117); TOTAL BILIRUBIN ADULT 0.2 MG/DL (0.2-1.0); TOTAL PROTEIN 6.3 GM/DL (6.4-8.2)
[2017-09-06 11:45] LABS: WESTERGREN SEDIMENTATION RATE 86 mm/hr (0-20)
[2017-09-06 12:00] VITALS: BP 116/61; PULSE 114; RESP 16; TEMP 97.8; O2SAT 93
[2017-09-06 14:23] LABS: BACTERIA, URINE OCC /hpf; BILIRUBIN, URINE NEG (NEG); BLOOD, URINE NEG (NEG); GLUCOSE,URINE NEG (NEG); HYALINE CAST, URINE 15 /lpf (RARE); KETONE, URINE NEG (NEG); MUCUS URINE FEW /lpf (OCC); NITRITE,URINE NEG (NEG); SQUAMOUS EPITHELIAL CELL URINE <1 /hpf (0-5); URINE COLOR YELLOW (YELLW/STRAW); URINE LEUKOCYTE ESTERASE NEG (NEG)
[2017-09-06] MEDS: ENOXAPARIN SODIUM 40 MG/0.4 ML SYRINGE SQ SCH (15:47)
[2017-09-06 16:00] VITALS: BP 117/61; PULSE 120; RESP 16; TEMP 97.7; O2SAT 95
[2017-09-06 20:00] VITALS: BP 124/60; PULSE 101; RESP 18; TEMP 97.4; O2SAT 96
[2017-09-06] MEDS: DULoxetine HCl DR 60 MG CAP PO SCH ×2 (20:27→20:31)
[2017-09-06] MEDS: DOCUSATE SODIUM 100 MG CAP PO SCH (20:27)
[2017-09-07 00:10] VITALS: BP 128/65; PULSE 95; RESP 18; TEMP 97.6; O2SAT 97
[2017-09-07] MEDS ORDERED: PHARMACY ORDERED LAB ONE (01:45)
[2017-09-07] MEDS: VANCOMYCIN INJ 1,000 MG in SODIUM CHLOR 0.9% 250 ML INJ 250 ML IV SCH ×2 (02:00→14:56)
[2017-09-07] MEDS: MORPHINE SULFATE 4 MG/ML INJ IV PUSH PRN ×6 (02:00→21:59)
[2017-09-07] MEDS: ceFAZolin 2 GM PREMIX 50 ML IV SCH ×4 (03:55→19:44)
[2017-09-07] MEDS: ACETAMINOPHEN/HYDROcodone 325 MG/10 MG TAB PO PRN ×6 (03:56→22:53)
[2017-09-07] MEDS: LACTATED RINGER'S 1000 ML INJ 1,000 ML IV SCH ×2 (03:56→19:44)
[2017-09-07 06:51] LABS: CREATININE 0.68 MG/DL (0.60-1.30)
[2017-09-07 08:00] VITALS: BP 157/80; PULSE 94; RESP 18; TEMP 97.4; O2SAT 99
--- NOTE | 2017-09-07 08:53 | PD.ORT.PN ---
Subjective Subjective Remarks continued complaints of post-operative hip pain; I again explained in great detail and depth the management of his left hip condition; no SOB, no chest pain Objective Vitals Vital Signs Date Time Temp Pulse Resp B/P (MAP) Pulse Ox O2 Delivery O2 Flow Rate FiO2 09/07/17 00:10 97.6 95 18 128/65 (86) 97 09/06/17 20:00 97.4 101 18 124/60 (81) 96 09/06/17 16:00 97.7 120 16 117/61 (79) 95 09/06/17 12:00 97.8 114 16 116/61 (79) 93 I/O 09/06/17 09/06/17 09/06/17 09/07/17 09/07/17 09/07/17 07:00 15:00 23:00 07:00 15:00 23:00 Intake Total 850 ml 100 ml 2390 ml 1030 ml Output Total 500 ml 1625 ml 1000 ml Balance 350 ml 100 ml 765 ml 30 ml Intake Oral 1540 ml 780 ml IV Total 850 ml 100 ml 850 ml 250 ml Output Urine Total 500 ml 1625 ml 1000 ml # Bowel Movements 0 Result Diagram: 09/06/17 1050 09/07/17 0540 Objective Remarks seen and examined by Dr. Iban Fisher Patient has clean dry dressing on left hip. Pain relatively well controlled. Neurovascular intact left leg Assessment & Plan Assessment and Plan Postop day #2 status post removal of left total hip arthroplasty components with placement of antibiotic spacer. Discuss with Dr. Ashford of Infectious disease Cultures returned heavy growth of MRSA, further infectious disease evaluation and management will be with Dr. Ashford, discussed with patient that he most likely will require to have at least 6 weeks of IV abx therapy Toe-touch weightbearing left leg Patient will need staged procedure for reimplantation of left total hip in approximately 8 weeks. Crystal Cronin September 07, 2017 08:53
[2017-09-07] MEDS: DULoxetine HCl DR 30 MG CAP PO SCH (09:00)
[2017-09-07] MEDS: CELECOXIB 200 MG CAP PO SCH ×2 (09:16→19:44)
[2017-09-07] MEDS: DOCUSATE SODIUM 100 MG CAP PO SCH ×2 (09:16→19:44)
[2017-09-07] MEDS: CYCLOBENZAPRINE HCL 10 MG TAB PO SCH ×2 (09:17→19:45)
[2017-09-07 12:00] VITALS: BP 139/68; PULSE 100; RESP 17; TEMP 97.7; O2SAT 96
[2017-09-07] MEDS: ENOXAPARIN SODIUM 40 MG/0.4 ML SYRINGE SQ SCH (14:58)
[2017-09-07 16:00] VITALS: BP 135/65; PULSE 107; RESP 16; TEMP 97.9; O2SAT 95
[2017-09-07] MEDS: DULoxetine HCl DR 60 MG CAP PO SCH (19:44)
[2017-09-07 20:00] VITALS: BP 151/73; PULSE 109; RESP 18; TEMP 99; O2SAT 99
[2017-09-08] VITALS: BP 145/74; PULSE 110; RESP 18; TEMP 98.9; O2SAT 95
[2017-09-08] MEDS: ceFAZolin 2 GM PREMIX 50 ML IV SCH ×2 (01:03→09:21)
[2017-09-08] MEDS: MORPHINE SULFATE 4 MG/ML INJ IV PUSH PRN ×5 (01:03→21:48)
[2017-09-08] MEDS: VANCOMYCIN INJ 1,000 MG in SODIUM CHLOR 0.9% 250 ML INJ 250 ML IV SCH ×2 (02:03→14:29)
[2017-09-08] MEDS: ACETAMINOPHEN/HYDROcodone 325 MG/10 MG TAB PO PRN ×5 (02:03→20:06)
[2017-09-08] MEDS: LACTATED RINGER'S 1000 ML INJ 1,000 ML IV SCH ×2 (04:47→16:21)
[2017-09-08 07:25] LABS: AUTOMATED NEUTROPHIL # 6.7 TH/MM3 (1.8-7.7); BASOPHIL % 0.5 % (0.0-2.0); EOSINOPHIL # 0.3 TH/MM3 (0-0.4); EOSINOPHIL % 2.8 % (0.0-4.0); HEMATOCRIT 30.2 % (39.0-51.0); HEMOGLOBIN 10.3 GM/DL (13.0-17.0); LYMPH % 14.8 % (9.0-44.0); LYMPHOCYTE # 1.5 TH/MM3 (1.0-4.8); MEAN CELL VOLUME 85.2 FL (80.0-100.0); MEAN CORPUSCULAR HEMOGLOBIN 29.1 PG (27.0-34.0); MEAN CORPUSCULAR HGB CONC 34.2 % (32.0-36.0); MEAN PLATELET VOLUME 7.8 FL (7.0-11.0); MONO % 13.9 % (0.0-8.0); MONOCYTE # 1.4 TH/MM3 (0-0.9); PLATELET COUNT 468 TH/MM3 (150-450); RED BLOOD COUNT 3.54 MIL/MM3 (4.50-5.90); RED CELL DISTRIBUTION WIDTH 12.9 % (11.6-17.2); WHITE BLOOD COUNT 9.9 TH/MM3 (4.0-11.0)
[2017-09-08 07:39] LABS: ALBUMIN 2.1 GM/DL (3.4-5.0); DIRECT BILIRUBIN ADULT 0.1 MG/DL (0.0-0.2)
[2017-09-08 07:40] LABS: INDIRECT BILIRUBIN 0.2 MG/DL (0.0-0.8); TOTAL BILIRUBIN ADULT 0.3 MG/DL (0.2-1.0)
[2017-09-08 07:41] LABS: TOTAL PROTEIN 6.3 GM/DL (6.4-8.2)
--- NOTE | 2017-09-08 07:57 | PD.ORT.PN ---
Subjective Subjective Remarks complaining of continued post op left hip pain, long discussion with patient about operative findings and post-operative care. 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 including explanation of biofilms of americo-prosthetic infections Objective Vitals Vital Signs Date Time Temp Pulse Resp B/P (MAP) Pulse Ox O2 Delivery O2 Flow Rate FiO2 09/08/17 00:00 98.9 110 18 145/74 (97) 95 09/07/17 20:00 99.0 109 18 151/73 (99) 99 09/07/17 16:00 97.9 107 16 135/65 (88) 95 09/07/17 12:00 97.7 100 17 139/68 (91) 96 09/07/17 08:00 97.4 94 18 157/80 (105) 99 I/O 09/07/17 09/07/17 09/07/17 09/08/17 09/08/17 09/08/17 06:59 14:59 22:59 06:59 14:59 22:59 Intake Total 1080 ml 50 ml 2327 ml 540 ml Output Total 1000 ml 2025 ml 900 ml Balance 80 ml 50 ml 302 ml -360 ml Intake Oral 780 ml 1600 ml 240 ml IV Total 300 ml 50 ml 727 ml 300 ml Output Urine Total 1000 ml 2025 ml 900 ml # Bowel Movements 0 0 Result Diagram: 09/08/17 0639 09/07/17 0540 Objective Remarks Patient has clean dry dressing on left hip. Pain relatively well controlled. Neurovascular intact left leg Assessment & Plan Assessment and Plan Postop day #3 status post removal of left total hip arthroplasty components with placement of antibiotic spacer. Cultures returned heavy growth of MRSA, Dr. Ashford following and patient is on Vancomycin, discussed with patient that he most likely will require to have at least 6 weeks of IV abx therapy Toe-touch weightbearing left leg Patient will need staged procedure for reimplantation of left total hip in approximately 8 weeks. Iban Fisher MD September 08, 2017 07:56
[2017-09-08 08:00] VITALS: BP 140/79; PULSE 95; RESP 18; TEMP 97.8; O2SAT 97
[2017-09-08] MEDS: DULoxetine HCl DR 30 MG CAP PO SCH (09:00)
[2017-09-08] MEDS: CYCLOBENZAPRINE HCL 10 MG TAB PO SCH ×2 (09:21→20:05)
[2017-09-08] MEDS: CELECOXIB 200 MG CAP PO SCH ×2 (09:21→20:04)
[2017-09-08] MEDS: DOCUSATE SODIUM 100 MG CAP PO SCH ×2 (09:21→20:04)
[2017-09-08] MEDS ORDERED: ACETAMINOPHEN/HYDROcodone 325 MG/7.5 MG TAB PO PRN (11:15)
[2017-09-08] MEDS ORDERED: ACETAMINOPHEN/HYDROcodone 325 MG/5 MG TAB PO PRN (11:15)
[2017-09-08 12:00] VITALS: BP 147/72; PULSE 106; RESP 18; TEMP 98.3; O2SAT 95
--- NOTE | 2017-09-08 12:39 | HHI.IDPN ---
Subjective Subjective Remarks Patient is a 61-year-old male, admitted to the hospital for surgery on his left hip. Patient had avascular necrosis of the left hip, and underwent left total hip arthroplasty last month. He was doing well, and his pain improved. He went for 3 week follow-up, and he was doing good at that time. According to the patient about 2 weeks prior to admission, he started having chills. He knew he had a fever, but he did not take his temperature. They would come and go, and he was still able to go to work. About a week prior to admission he started experiencing pain on his left hip. He also noted a spot over the previous incision that had a white spot on it, and also some redness. His symptoms persisted, and he called his orthopedic surgeon on Friday. He was told to monitor his symptoms. The area of white spots started getting bigger, and he had a follow-up visit 1 day prior to admission and after he took a shower that area started draining. He was seen in follow-up, and was brought into the hospital for surgical treatment. Patient underwent removal of all his hardware, and he has an antibiotic prosthesis currently. He has had some low- grade temp since admission. Patient denies any recent dental work. He denies any recent skin infection. He has not had any respiratory complaints, GI or any urinary complaints. Gram stain from surgery has gram-positive cocci. Infectious disease consultation has been requested to evaluate the patient. Notes reviewed Temps ok C/O L hip pain OR C/S MRSA Antibiotics Vancomycin Current Medications Medications (Trade) Dose Ordered Sig/Kaveh Route Start Time Stop Time Status Last Admin Vancomycin HCl 1000 mg/Sodium Chloride 250 ml @ 250 mls/hr Q12H IV 09/06/17 02:00 09/08/17 02:03 (Lovenox Inj) 40 mg Q24H SQ 09/06/17 15:00 09/07/17 14:58 (Zofran Odt) 4 mg Q6H PRN PO 09/05/17 15:30 (Colace) 100 mg BID PO 09/06/17 21:00 09/08/17 09:21 (Narcan Inj) 0.4 mg UNSCH PRN IV PUSH 09/05/17 15:30 Lactated Ringer's 1,000 ml @ 80 mls/hr [id number] IV 09/05/17 15:30 09/07/17 19:44 (Morphine Inj) 3 mg Q3H PRN IV PUSH 09/05/17 15:30 09/08/17 04:47 (CeleBREX) 200 mg BID PO 09/06/17 09:00 09/08/17 09:21 (Flexeril) 5 mg BID PO 09/05/17 21:00 09/08/17 09:21 (Valium) 5 mg Q8H PRN PO 09/05/17 15:30 (Cymbalta Dr) 30 mg DAILY PO 09/06/17 09:00 (Cymbalta Dr) 60 mg HS PO 09/05/17 21:00 09/05/17 19:50 (Pill Splitter) 1 ea UNSCH PRN OTHER 09/05/17 15:30 09/07/17 09:15 Pharmacy Profile Note 0 ml @ 0 mls/hr UNSCH OTHER 09/06/17 08:45 ([facility] Ordered Lab Info) SPECIFIC LAB TO BE DRAWN:VANCO DATE TO... ONCE ONCE .XX 09/08/17 13:45 09/08/17 13:46 ([place] 5-325 Mg) 1 tab Q4H PRN PO 09/08/17 11:15 ([place] 7.5-325 Mg) 1 tab Q4H PRN PO 09/08/17 11:15 ([place] 10-325 Mg) 1 tab Q4H PRN PO 09/08/17 11:30 09/08/17 11:19 Lines PIV Past Medical History Chronic pain Avascular necrosis of the left hip Arthritis Past Surgical History Back surgery L4-L5 Appendectomy Left total hip arthroplasty July 2017 Allergies: Coded Allergies: No Known Allergies (Unverified Allergy, Unknown, 09/05/17) Objective . Vital Signs Date Time Temp Pulse Resp B/P (MAP) Pulse Ox O2 Delivery O2 Flow Rate FiO2 09/08/17 08:00 97.8 95 18 140/79 (99) 97 09/08/17 00:00 98.9 110 18 145/74 (97) 95 09/07/17 20:00 99.0 109 18 151/73 (99) 99 09/07/17 16:00 97.9 107 16 135/65 (88) 95 09/08/17 09/08/17 09/09/17 15:00 23:00 07:00 Intake Total 50 ml Balance 50 ml IV Total 50 ml . Laboratory Tests Test 09/08/17 06:39 White Blood Count 9.9 TH/MM3 Red Blood Count 3.54 MIL/MM3 Hemoglobin 10.3 GM/DL Hematocrit 30.2 % Mean Corpuscular Volume 85.2 FL Mean Corpuscular Hemoglobin 29.1 PG Mean Corpuscular Hemoglobin Concent 34.2 % Red Cell Distribution Width 12.9 % Platelet Count 468 TH/MM3 Mean Platelet Volume 7.8 FL Neutrophils (%) (Auto) 68.0 % Lymphocytes (%) (Auto) 14.8 % Monocytes (%) (Auto) 13.9 % Eosinophils (%) (Auto) 2.8 % Basophils (%) (Auto) 0.5 % Neutrophils # (Auto) 6.7 TH/MM3 Lymphocytes # (Auto) 1.5 TH/MM3 Monocytes # (Auto) 1.4 TH/MM3 Eosinophils # (Auto) 0.3 TH/MM3 Basophils # (Auto) 0.0 TH/MM3 CBC Comment DIFF FINAL Differential Comment Hematology Comments Laboratory Tests Test 09/07/17 05:40 09/08/17 06:39 Creatinine 0.68 MG/DL Estimat Glomerular Filtration Rate 119 ML/MIN Total Bilirubin 0.3 MG/DL Direct Bilirubin 0.1 MG/DL Indirect Bilirubin 0.2 MG/DL Aspartate Amino Transf (AST/SGOT) 33 U/L Alanine Aminotransferase (ALT/SGPT) 43 U/L Alkaline Phosphatase 154 U/L Total Protein 6.3 GM/DL Albumin 2.1 GM/DL Microbiology Date/Time Source Procedure Growth Status 09/06/17 11:00 Blood Peripheral Aerobic Blood Culture - Preliminary NO GROWTH IN 2 DAYS Resulted 09/06/17 11:00 Blood Peripheral Anaerobic Blood Culture - Preliminary NO GROWTH IN 2 DAYS Resulted 09/06/17 10:50 Blood Peripheral Aerobic Blood Culture - Preliminary NO GROWTH IN 2 DAYS Resulted 09/06/17 10:50 Blood Peripheral Anaerobic Blood Culture - Preliminary NO GROWTH IN 2 DAYS Resulted 09/05/17 13:55 Tissue Hip Acid Fast Stain - Final NO ACID FAST BACILLI SEEN Resulted 09/05/17 13:55 Tissue Hip Mycobacterial Culture Pending Resulted 09/05/17 13:55 Tissue Hip Fungal Smear - Final NO FUNGAL ELEMENTS SEEN. Resulted 09/05/17 13:55 Tissue Hip Fungal Culture Pending Resulted 09/05/17 13:55 Tissue Hip Gram Stain - Final Complete 09/05/17 13:55 Wound Culture - Final S. Aureus Mrsa Complete 09/05/17 13:40 Abscess Hip Fungal Smear - Final NO FUNGAL ELEMENTS SEEN. Resulted 09/05/17 13:40 Abscess Hip Fungal Culture Pending Resulted 09/05/17 13:40 Abscess Hip Acid Fast Stain - Final NO ACID FAST BACILLI SEEN Resulted 09/05/17 13:40 Abscess Hip Mycobacterial Culture Pending Resulted 09/05/17 13:40 Abscess Hip Gram Stain - Final Complete 09/05/17 13:40 Wound Culture - Final S. Aureus Mrsa Complete 09/05/17 13:38 Wound Hip Acid Fast Stain - Final NO ACID FAST BACILLI SEEN Resulted 09/05/17 13:38 Wound Hip Mycobacterial Culture Pending Resulted 09/05/17 13:38 Wound Hip Fungal Smear - Final NO FUNGAL ELEMENTS SEEN. Resulted 09/05/17 13:38 Wound Hip Fungal Culture Pending Resulted 09/05/17 13:38 Wound Hip Gram Stain - Final Complete 09/05/17 13:38 Wound Culture - Final S. Aureus Mrsa Complete Imaging Physical Exam GENERAL: Patient is a well-nourished, well-developed male, awake and alert, not in respiratory distress. SKIN: Warm and dry. No generalized rash, no ecchymoses and no evidence of embolic lesions. HEAD: Atraumatic. Normocephalic. No temporal wasting, or tenderness. EYES: [place] conjunctiva. No petechia or hemorrhage. Pupils equal, round and reactive to light. Extraocular movements full and intact. No scleral icterus. No injection or drainage. EARS, NOSE AND THROAT: Nose without bleeding or purulent nasal discharge. No sinus tenderness. Mucous membranes pink and moist. No oral lesions noted. No exudate. No oral thrush. NECK: Trachea midline. Supple and not tender, no meningeal signs CARDIOVASCULAR: Regular rate and rhythm. No murmurs, rubs or gallops heard RESPIRATORY: Clear to auscultation. Breath sounds equal bilaterally. No rales , wheezing or rhonchi ABDOMEN: Soft, non-tender, nondistended. Bowel sounds present and normoactive. No guarding. No rebound. No organomegaly. EXTREMITIES: No clubbing, cyanosis or edema. Has dressing over L hip/thigh area, dry and intact. Has some erythema and induration in upper portion of his incision posteriorly. NEUROLOGICAL: Non-focal. PSYCHIATRIC: Normal affect, calm and cooperative. LINE: No evidence of infection Assessment & Plan Remarks IMPRESSION Infection left total hip arthroplasty, status post removal of hardware -Gram stain with gram-positive cocci, staph and strep the usual pathogens causing infection of the prosthesis RECOMMENDATION Stop Ancef Continue vancomycin - pharmacy doing dosing - has trough ordered today, and hopefully will determine dosage for D/C PICC Labs while on Abx : CBC, creat, Vanco trough Need 6 weeks IV ABx Patient deciding on rehab since he lives by himself Follow-up with Dr Ibrahim (I informed Dr Ibrahim about patient, and patient instructed to call his office to make appointment) I will fill out infusion form tomorrow 2 stage procedure has been planned by orthopedic Monitor progress Explained plan to the patient Answered all his questions Margi Asfhord MD September 08, 2017 12:39
[2017-09-08] MEDS ORDERED: PHARMACY ORDERED LAB ONE (13:45)
[2017-09-08] MEDS: ENOXAPARIN SODIUM 40 MG/0.4 ML SYRINGE SQ SCH (14:28)
[2017-09-08 16:00] VITALS: BP 145/81; PULSE 101; RESP 17; TEMP 98.1; O2SAT 95
[2017-09-08] MEDS ORDERED: SODIUM CHLORIDE 0.9% FLUSH 10 ML FLUSH IV FLUSH PRN (16:00)
[2017-09-08 20:00] VITALS: BP 141/77; PULSE 97; RESP 18; TEMP 98; O2SAT 94
[2017-09-08] MEDS: DULoxetine HCl DR 60 MG CAP PO SCH (20:05)
[2017-09-09] VITALS: BP 140/72; PULSE 90; RESP 18; TEMP 98.1; O2SAT 93
[2017-09-09] MEDS: ACETAMINOPHEN/HYDROcodone 325 MG/10 MG TAB PO PRN ×5 (00:47→19:51)
[2017-09-09] MEDS: VANCOMYCIN INJ 1,500 MG in SODIUM CHLORID 0.9% 500 ML INJ 500 ML IV SCH ×2 (00:48→16:28)
[2017-09-09] MEDS: MORPHINE SULFATE 4 MG/ML INJ IV PUSH PRN ×5 (02:53→21:04)
[2017-09-09] MEDS: LACTATED RINGER'S 1000 ML INJ 1,000 ML IV SCH ×2 (06:57→19:52)
[2017-09-09 08:00] VITALS: BP 134/70; PULSE 108; RESP 18; TEMP 97.3; O2SAT 98
[2017-09-09] MEDS: DULoxetine HCl DR 30 MG CAP PO SCH (08:38)
[2017-09-09] MEDS: CELECOXIB 200 MG CAP PO SCH ×2 (08:38→19:51)
[2017-09-09] MEDS: CYCLOBENZAPRINE HCL 10 MG TAB PO SCH ×2 (08:39→19:51)
[2017-09-09] MEDS: DOCUSATE SODIUM 100 MG CAP PO SCH ×2 (08:39→19:51)
[2017-09-09] MEDS: SODIUM CHLORIDE 0.9% FLUSH 10 ML FLUSH IV FLUSH SCH (09:00)
--- NOTE | 2017-09-09 10:13 | PD.ORT.PN ---
Subjective Subjective Remarks Patient is awake and alert. He is status post irrigation and debridement of left hip with removal of total hip arthroplasty and placement of antibiotic spacer. Pain is relatively controlled Objective Vitals Vital Signs Date Time Temp Pulse Resp B/P (MAP) Pulse Ox O2 Delivery O2 Flow Rate FiO2 09/09/17 00:00 98.1 90 18 140/72 (94) 93 09/08/17 20:00 98.0 97 18 141/77 (98) 94 09/08/17 16:00 98.1 101 17 145/81 (102) 95 09/08/17 12:00 98.3 106 18 147/72 (97) 95 I/O 09/08/17 09/08/17 09/08/17 09/09/17 09/09/17 09/09/17 06:59 14:59 22:59 06:59 14:59 22:59 Intake Total 540 ml 50 ml 600 ml 740 ml Output Total 900 ml 1000 ml 1200 ml Balance -360 ml 50 ml -400 ml -460 ml Intake Oral 240 ml 600 ml 240 ml IV Total 300 ml 50 ml 500 ml Output Urine Total 900 ml 1000 ml 1200 ml # Voids 3 # Bowel Movements 0 0 0 Result Diagram: 09/08/17 0639 09/07/17 0540 Objective Remarks Patient has clean dry dressing on left hip. Pain relatively well controlled. Neurovascular intact left leg. Small amount of serosanguineous drainage on the dressing. Assessment & Plan Assessment and Plan Postop day #4 status post removal of left total hip arthroplasty components with placement of antibiotic spacer. Cultures returned heavy growth of MRSA, Dr. Ashford following and patient is on Vancomycin, discussed with patient that he will require to have at least 6 weeks of IV abx therapy Physical therapy--50% weightbearing left leg Patient will need staged procedure for reimplantation of left total hip in approximately 8 weeks. Adis Tavares MD September 09, 2017 10:13
--- NOTE | 2017-09-09 10:42 | HHI.FF ---
cc: Fadi Ibrahim MD Infusion Therapy Location of Infusion Therapy: [facility] Infusion Therapy Order Patient Information Patient Weight 91 kg Diagnosis: Diagnosis MRSA LTHA infection Hardware removed Coded Allergies: No Known Allergies (Unverified Allergy, Unknown, 09/05/17) Administer Medication Vancomycin 1.5 grams IV q 12 hours Stop Treatment: Oct 22, 2017 Additional Information Additional Instructions [x] Peripheral flush and dressing changes per protocol [x] Implanted port and central vessel liner: * Implanted port: 10 ml Normal Saline followed by 5 ml Heparin 100 units/ml Heparin flush after each use and monthly to maintain. [] May leave port accessed during therapy. [] May leave peripheral site accessed for duration of therapy. [x] If patient has SOB or respiratory distress, check oxygen saturation. If less than 90% or clinical signs of respiratory distress, administer oxygen at 2 L/min. via nasal cannula and notify physician. [x] Anaphylaxis/Reaction orders: * Stop infusion. * Keep IV line open with saline flush. * Notify physician. * Monitor vital signs every 15 minutes until symptoms resolve. * Check Oxygen saturation; Oxygen at 2 L/min. via nasal cannula if less than 90% or clinical signs of respiratory distress. * Administer diphenhydramine (Benadryl) 25 mg IV STAT, (unless patient has received as pre-med). May repeat once, if necessary. * Solu-Cortef 250 mg IVP over 30-60 seconds, use 100 mg vials for each dissolution. * Epinephrine (1mg/1 ml) 0.3 mg subcutaneously or IVP now with any signs of respiratory distress. * Check with physician for new additional pre-med orders if patient is re- challenged or re-treated. [x] May remove PICC line when treatment complete, after confirming with Physician. [x] If the patient is admitted to the hospital, the ED, or transferred via [facility] , complete transfer form including medication reconciliation order sheet. Laboratory Tests Weekly Labs: CBC w/diff, Creatinine, Vancomycin Trough (Labs every Friday - copy to me and Dr Ibrahim. Do Vanco trough September 11) Additional Information Please ask pharm to assist with Vanco dosing - aim for trough 15-20 Please have patient follow-up with Dr Ibrahim (I gave patient Dr Ibrahim's office number) Margi Ashford MD September 09, 2017 10:42
--- NOTE | 2017-09-09 10:47 | HHI.IDPN ---
Subjective Subjective Remarks Patient is a 61-year-old male, admitted to the hospital for surgery on his left hip. Patient had avascular necrosis of the left hip, and underwent left total hip arthroplasty last month. He was doing well, and his pain improved. He went for 3 week follow-up, and he was doing good at that time. According to the patient about 2 weeks prior to admission, he started having chills. He knew he had a fever, but he did not take his temperature. They would come and go, and he was still able to go to work. About a week prior to admission he started experiencing pain on his left hip. He also noted a spot over the previous incision that had a white spot on it, and also some redness. His symptoms persisted, and he called his orthopedic surgeon on Friday. He was told to monitor his symptoms. The area of white spots started getting bigger, and he had a follow-up visit 1 day prior to admission and after he took a shower that area started draining. He was seen in follow-up, and was brought into the hospital for surgical treatment. Patient underwent removal of all his hardware, and he has an antibiotic prosthesis currently. He has had some low- grade temp since admission. Patient denies any recent dental work. He denies any recent skin infection. He has not had any respiratory complaints, GI or any urinary complaints. Gram stain from surgery has gram-positive cocci. Infectious disease consultation has been requested to evaluate the patient. Notes reviewed Temps ok Has PICC in place OR C/S MRSA Vanco levels subtherapeutic, started on new dose today Patient choosing for SNF Antibiotics Vancomycin Current Medications Medications (Trade) Dose Ordered Sig/Kaveh Route Start Time Stop Time Status Last Admin (Lovenox Inj) 40 mg Q24H SQ 09/06/17 15:00 09/08/17 14:28 (Zofran Odt) 4 mg Q6H PRN PO 09/05/17 15:30 (Colace) 100 mg BID PO 09/06/17 21:00 09/09/17 08:39 (Narcan Inj) 0.4 mg UNSCH PRN IV PUSH 09/05/17 15:30 Lactated Ringer's 1,000 ml @ 80 mls/hr [id number] IV 09/05/17 15:30 09/07/17 19:44 (Morphine Inj) 3 mg Q3H PRN IV PUSH 09/05/17 15:30 09/09/17 06:13 (CeleBREX) 200 mg BID PO 09/06/17 09:00 09/09/17 08:38 (Flexeril) 5 mg BID PO 09/05/17 21:00 09/09/17 08:39 (Valium) 5 mg Q8H PRN PO 09/05/17 15:30 (Cymbalta Dr) 30 mg DAILY PO 09/06/17 09:00 (Cymbalta Dr) 60 mg HS PO 09/05/17 21:00 09/05/17 19:50 (Pill Splitter) 1 ea UNSCH PRN OTHER 09/05/17 15:30 09/07/17 09:15 Pharmacy Profile Note 0 ml @ 0 mls/hr UNSCH OTHER 09/06/17 08:45 ([place] 5-325 Mg) 1 tab Q4H PRN PO 09/08/17 11:15 ([place] 7.5-325 Mg) 1 tab Q4H PRN PO 09/08/17 11:15 ([place] 10-325 Mg) 1 tab Q4H PRN PO 09/08/17 11:30 09/09/17 09:43 Vancomycin HCl 1500 mg/Sodium Chloride 515 ml @ 250 mls/hr Q12H IV 09/09/17 02:00 09/09/17 00:48 ([facility] Ordered Lab Info) SPECIFIC LAB TO BE STEVEN... ONCE ONCE .XX 09/11/17 01:45 09/11/17 01:46 (NS Flush) See Protocol DAILY IV FLUSH 09/09/17 09:00 (NS Flush) See Protocol UNSCH PRN IV FLUSH 09/08/17 16:00 (Heparin Central Flush) See Protocol DAILY IV FLUSH 09/09/17 09:00 09/09/17 08:40 (Heparin Central Flush) See Protocol UNSCH PRN IV FLUSH 09/08/17 16:00 (NS Flush) UNSCH PRN IV FLUSH 09/08/17 16:00 09/09/17 06:14 Lines PICC Past Medical History Chronic pain Avascular necrosis of the left hip Arthritis Past Surgical History Back surgery L4-L5 Appendectomy Left total hip arthroplasty July 2017 Allergies: Coded Allergies: No Known Allergies (Unverified Allergy, Unknown, 09/05/17) Objective . Vital Signs Date Time Temp Pulse Resp B/P (MAP) Pulse Ox O2 Delivery O2 Flow Rate FiO2 09/09/17 08:00 97.3 108 18 134/70 (91) 98 09/09/17 00:00 98.1 90 18 140/72 (94) 93 09/08/17 20:00 98.0 97 18 141/77 (98) 94 09/08/17 16:00 98.1 101 17 145/81 (102) 95 09/08/17 12:00 98.3 106 18 147/72 (97) 95 . Laboratory Tests Test 09/08/17 06:39 White Blood Count 9.9 TH/MM3 Red Blood Count 3.54 MIL/MM3 Hemoglobin 10.3 GM/DL Hematocrit 30.2 % Mean Corpuscular Volume 85.2 FL Mean Corpuscular Hemoglobin 29.1 PG Mean Corpuscular Hemoglobin Concent 34.2 % Red Cell Distribution Width 12.9 % Platelet Count 468 TH/MM3 Mean Platelet Volume 7.8 FL Neutrophils (%) (Auto) 68.0 % Lymphocytes (%) (Auto) 14.8 % Monocytes (%) (Auto) 13.9 % Eosinophils (%) (Auto) 2.8 % Basophils (%) (Auto) 0.5 % Neutrophils # (Auto) 6.7 TH/MM3 Lymphocytes # (Auto) 1.5 TH/MM3 Monocytes # (Auto) 1.4 TH/MM3 Eosinophils # (Auto) 0.3 TH/MM3 Basophils # (Auto) 0.0 TH/MM3 CBC Comment DIFF FINAL Differential Comment Hematology Comments Laboratory Tests Test 09/08/17 06:39 Total Bilirubin 0.3 MG/DL Direct Bilirubin 0.1 MG/DL Indirect Bilirubin 0.2 MG/DL Aspartate Amino Transf (AST/SGOT) 33 U/L Alanine Aminotransferase (ALT/SGPT) 43 U/L Alkaline Phosphatase 154 U/L Total Protein 6.3 GM/DL Albumin 2.1 GM/DL Microbiology Date/Time Source Procedure Growth Status 09/06/17 11:00 Blood Peripheral Aerobic Blood Culture - Preliminary NO GROWTH IN 2 DAYS Resulted 09/06/17 11:00 Blood Peripheral Anaerobic Blood Culture - Preliminary NO GROWTH IN 2 DAYS Resulted 09/06/17 10:50 Blood Peripheral Aerobic Blood Culture - Preliminary NO GROWTH IN 2 DAYS Resulted 09/06/17 10:50 Blood Peripheral Anaerobic Blood Culture - Preliminary NO GROWTH IN 2 DAYS Resulted Imaging Physical Exam GENERAL: Patient is a well-nourished, well-developed male, awake and alert, not in respiratory distress. SKIN: Warm and dry. No generalized rash, no ecchymoses and no evidence of embolic lesions. HEAD: Atraumatic. Normocephalic. No temporal wasting, or tenderness. EYES: [place] conjunctiva. No petechia or hemorrhage. Pupils equal, round and reactive to light. Extraocular movements full and intact. No scleral icterus. No injection or drainage. EARS, NOSE AND THROAT: Nose without bleeding or purulent nasal discharge. No sinus tenderness. Mucous membranes pink and moist. No oral lesions noted. No exudate. No oral thrush. NECK: Trachea midline. Supple and not tender, no meningeal signs CARDIOVASCULAR: Regular rate and rhythm. No murmurs, rubs or gallops heard RESPIRATORY: Clear to auscultation. Breath sounds equal bilaterally. No rales , wheezing or rhonchi ABDOMEN: Soft, non-tender, nondistended. Bowel sounds present and normoactive. No guarding. No rebound. No organomegaly. EXTREMITIES: No clubbing, cyanosis or edema. Has dressing over L hip/thigh area, dry and intact. Has some erythema and induration in upper portion of his incision posteriorly. NEUROLOGICAL: Non-focal. PSYCHIATRIC: Normal affect, calm and cooperative. LINE: No evidence of infection Assessment & Plan Remarks IMPRESSION Infection left total hip arthroplasty, status post removal of hardware - C/S MRSA RECOMMENDATION Continue vancomycin - plan 6 weeks of Vanco with therapeutic levels Labs while on Abx : CBC, creat, Vanco trough Follow-up with Dr Ibrahim (I informed Dr Ibrahim about patient, and patient instructed to call his office to make appointment) 2 stage procedure has been planned by orthopedic I have filled out antibiotic infusion form He can be D/C from ID standpoint - patient choosing [facility] Margi Ashford MD September 09, 2017 10:47
[2017-09-09 12:00] VITALS: BP 138/65; PULSE 98; RESP 18; TEMP 97.9; O2SAT 95
[2017-09-09 16:00] VITALS: BP 161/70; PULSE 103; RESP 20; TEMP 98.1; O2SAT 94
[2017-09-09] MEDS: ENOXAPARIN SODIUM 40 MG/0.4 ML SYRINGE SQ SCH (16:36)
[2017-09-09] MEDS: DULoxetine HCl DR 60 MG CAP PO SCH (19:52)
[2017-09-09 20:00] VITALS: BP 157/79; PULSE 96; RESP 18; TEMP 98; O2SAT 95
[2017-09-09] MEDS: MAGNESIUM HYDROXIDE SUSP 30 ML CUP PO PRN (21:04)
[2017-09-10] VITALS: BP 158/80; PULSE 89; RESP 18; TEMP 97.5; O2SAT 93
[2017-09-10] MEDS: ACETAMINOPHEN/HYDROcodone 325 MG/10 MG TAB PO PRN ×4 (00:14→13:13)
[2017-09-10] MEDS: MORPHINE SULFATE 4 MG/ML INJ IV PUSH PRN ×2 (01:24→05:30)
[2017-09-10] MEDS: VANCOMYCIN INJ 1,500 MG in SODIUM CHLORID 0.9% 500 ML INJ 500 ML IV SCH ×2 (01:24→13:12)
[2017-09-10] MEDS: MAGNESIUM HYDROXIDE SUSP 30 ML CUP PO PRN (05:30)
[2017-09-10 08:00] VITALS: BP 146/73; PULSE 106; RESP 18; TEMP 97.9; O2SAT 96
[2017-09-10] MEDS: LACTATED RINGER'S 1000 ML INJ 1,000 ML IV SCH (08:00)
[2017-09-10] MEDS: CYCLOBENZAPRINE HCL 10 MG TAB PO SCH (08:35)
[2017-09-10] MEDS: DULoxetine HCl DR 30 MG CAP PO SCH (08:35)
[2017-09-10] MEDS: DOCUSATE SODIUM 100 MG CAP PO SCH (08:36)
[2017-09-10] MEDS: CELECOXIB 200 MG CAP PO SCH (08:36)
[2017-09-10] MEDS: SODIUM CHLORIDE 0.9% FLUSH 10 ML FLUSH IV FLUSH SCH (08:37)
--- NOTE | 2017-09-10 08:52 | PD.ORT.PN ---
Subjective Subjective Remarks Progressing well with physical therapy. IV antibiotics have been arranged. He is planning for discharge to rehab Objective Vitals Vital Signs Date Time Temp Pulse Resp B/P (MAP) Pulse Ox O2 Delivery O2 Flow Rate FiO2 09/10/17 00:00 97.5 89 18 158/80 (106) 93 09/09/17 20:00 98.0 96 18 157/79 (105) 95 09/09/17 16:21 20 09/09/17 16:00 98.1 103 20 161/70 (100) 94 09/09/17 14:44 20 09/09/17 12:00 97.9 98 18 138/65 (89) 95 I/O 09/09/17 09/09/17 09/09/17 09/10/17 09/10/17 09/10/17 07:00 15:00 23:00 07:00 15:00 23:00 Intake Total 740 ml 2200 ml 995 ml Output Total 1200 ml 0 ml 600 ml Balance -460 ml 2200 ml 395 ml Intake Oral 240 ml 2200 ml 480 ml IV Total 500 ml 515 ml Output Urine Total 1200 ml 600 ml Stool Total 0 ml # Voids 3 3 4 # Bowel Movements 0 0 Result Diagram: 09/08/17 0639 09/07/17 0540 Objective Remarks Patient has clean dry dressing on left hip. Pain relatively well controlled. Neurovascular intact left leg. Small amount of serosanguineous drainage on the dressing. Assessment & Plan Assessment and Plan Postop day #5 status post removal of left total hip arthroplasty components with placement of antibiotic spacer. Cultures returned heavy growth of MRSA, Dr. Ashford following and patient is on Vancomycin, discussed with patient that he will require to have at least 6 weeks of IV abx therapy Physical therapy--50% weightbearing left leg Patient will need staged procedure for reimplantation of left total hip in approximately 8 weeks. Lovenox Incentive spirometry Plan for discharge to rehab today with antibiotics arranged via PICC line Follow-up with Dr. Tavares or [place] in 2 weeks Aba Manuel Jr. September 10, 2017 08:52
[2017-09-10] MEDS ORDERED: AMBI10TA PO (10:49)
[2017-09-10] MEDS ORDERED: HYDR-3366 PO (10:49)
[2017-09-10] MEDS ORDERED: CYCL5TAB PO (10:49)
[2017-09-10] MEDS ORDERED: DIAZ5TAB PO (10:49)
[2017-09-10 12:00] VITALS: BP 136/70; PULSE 105; RESP 17; TEMP 97.6; O2SAT 96
[2017-09-11] MEDS ORDERED: PHARMACY ORDERED LAB ONE (01:45)
--- NOTE | 2017-09-15 11:47 | MP ---
cc: Adis Tavares MD DATE OF OPERATION: 09/05/2017 DATE OF SURGERY: 09/05/2017 PREOPERATIVE DIAGNOSIS: Left hip wound infection. POSTOPERATIVE DIAGNOSIS: Left hip wound infection. SURGEON: Adis Tavares MD SCRAP BREAKER: Harsh Silva PA-C. The surgical procedure was assisted by my physician assistant professor of english. My PA-C's presence was necessary throughout this case for the manipulation and positioning of the surgical extremity. My PA-C was assisting me throughout the duration of this procedure. The skill set of a physician assistant professor of english was medically necessary to complete this procedure. During the surgical case the surgical technology instructor was working at the back table and the physician assistant professor of english was directly assisting me. PROCEDURE: Irrigation and debridement of the left hip, removal of total hip prosthesis, placement of antibiotic spacer, left hip. ANESTHESIA: General. HISTORY OF PRESENT ILLNESS: Darrel is a 61-year-old male who is well known to me from previous left total hip arthroplasty approximately 5 weeks ago. He presented to the clinic 3 days ago with redness, swelling and pain around his hip. Informed consent was obtained preoperatively and the operative site was marked. He was brought to the operating room. He was given IV sedation and general anesthesia. Antibiotics were held until cultures were obtained. He was positioned on a [place] fracture table. Left hip and leg were prepped with alcohol followed by Hibiclens and draped in the usual sterile fashion. Timeout procedure was performed. Procedure began with a 6-inch incision through previous scar. Subcutaneous tissue was dissected with Bovie. At this point, there was a large purulent fluid collection noted around the fascia. This abscess was thoroughly debrided with curettes and rongeurs. An excisional debridement was performed. Soft tissue was thoroughly irrigated with pulsatile lavage. At this point, the fascial layer was visualized. There was a 1 cm defect in the fascia. There was purulent fluid coming from within deep in the fascia. The fascial layer was now opened. A standard approach for anterior total hip was utilized. There was a large pocket of purulence around the prosthesis. At this point, cultures were obtained. Antibiotics were now given. Next, attention was turned towards removal of the hip prosthesis. Soft tissue was released. The hip was exposed. Soft tissue was retracted. Hip capsule was incised and the hip was now dislocated. At this point, attention was turned to removal of the femoral stem. Using flexible osteotomes, the stem was loosened. Insertion handle was now screwed onto the stem. The stem was now backslapped and removed. Using the Innomed acetabular cup removal osteotomes, the acetabular cup was now removed. At this point, excisional debridement was performed around the hip. The soft tissue, fascia, and bone were sharply debrided with curettes and rongeurs. After a thorough debridement, the wound was thoroughly irrigated with pulsatile lavage. At this point, the wound appeared to be very clean. Next, attention was turned to antibiotic spacer placement. Using the pre-made components, the femoral head and stem sizes were selected. A small head and small stem were selected. The components were opened and screwed together appropriately. One batch of cement was also mixed with 4 grams of vancomycin and 4 grams of tobramycin. The cement was mixed and now packed around the proximal end of the temporary antibiotic prosthesis. Additionally, STIMULAN bone cement was mixed with vancomycin and tobramycin. Some beads were packed into the femoral stem. When the cement was nearly set, the stem was now placed into the proximal femur. Care was taken to keep appropriate anteversion. The hip was now reduced. Additional STIMULAN beads were packed around the hip socket. Fluoroscopy confirmed appropriate placement of temporary spacer. The fascial layers were now closed with #1 PDS. Subcutaneous tissue was closed with 3-0 PDS. Skin was closed with emelia. Needle and sponge counts were correct. Sterile dressings were applied. The patient was awakened and transferred to recovery room in stable condition. MD DUANE Mcdermott/JAMEL , 11:18 AM , 11:46 AM
== END 2017-09-10 14:39 | DRG 465 ==
LOC: HSDI 06:48 → N07A 17:25
PROVIDERS: ADMIT Orthopaedic Surgery Orthopaedic Trauma; ATTEND Orthopaedic Surgery Orthopaedic Trauma
PROC: 0SHB08Z Insertion of Spacer into Left Hip Joint, Open Approach (ICD-10-PCS; 2017-09-05)
PROC: 0JBM0ZZ Excision of Left Upper Leg Subcutaneous Tissue and Fascia, Open Approach (ICD-10-PCS; 2017-09-05)
PROC: 0SPB0JZ Removal of Synthetic Substitute from Left Hip Joint, Open Approach (ICD-10-PCS; principal; 2017-09-05 12:54)
PROC: 02HV33Z Insertion of Infusion Device into Superior Vena Cava, Percutaneous Approach (ICD-10-PCS; 2017-09-08)
DX: T84.52XA Infection and inflammatory reaction due to internal left hip prosthesis, initial encounter (principal); F32.9 Major depressive disorder, single episode, unspecified; B95.62 Methicillin resistant Staphylococcus aureus infection as the cause of diseases classified elsewhere; Y83.1 Surgical operation with implant of artificial internal device as the cause of abnormal reaction of the patient, or of later complication, without mention of misadventure at the time of the procedure; F41.9 Anxiety disorder, unspecified; Z87.891 Personal history of nicotine dependence
CPT/HCPCS: 36569; 73502; 76000; 76937; 80053; 80076; 80202; 81001; 82565; 85014; 85018; 85025; 85652; 86140; 86403; 86850; 86900; 86901; 87015; 87040; 87070; 87102; 87116; 87147; 87176; 87186; 87205; 87206; 93005; C1713; C1776; J0131; J0690; J1100; J1580; J1642; J1650; J1885; J2250; J2270; J2370; J2405; J2710; J3010; J3370; J7040; J7050; J7120

== ENCOUNTER 2017-10-04 11:32 | Inpatient (IN) | payer OTHER ==
[~2017-10-04] VITALS: Ht 180.3 cm; Wt 89.6 kg
[~2017-10-04 11:32] MED LIST changes: -CYMB30CA PO; -CYMB60CA PO; +DIAZ5TAB PO; +HYDR-3366 PO; -HYDR-3583 PO; -PERC10TA27 PO
[2017-10-04] MEDS ORDERED: GADODIAMIDE PF 287 MG/ML 20 ML VIAL (for RAD MRI) IVCONTRAST ONE (11:33)
[2017-10-04 11:38] VITALS: BP 151/91; PULSE 119; RESP 20; TEMP 99; O2SAT 97
[2017-10-04] MEDS ORDERED: KETOROLAC TROMETHAMINE 30 MG/ML (IVP) VIAL IV PUSH ONE (12:00)
[2017-10-04] MEDS ORDERED: DEXAMETHASONE SOD PHOS 4 MG/ML VIAL IV ONE (12:00)
[2017-10-04] MEDS ORDERED: PHENYLEPH/NS 1000 MCG/10 ML SYR IV ONE (12:00)
[2017-10-04] MEDS ORDERED: ceFAZolin INJ 1,000 MG VIAL IV ONE (12:00)
[2017-10-04] MEDS ORDERED: ONDANSETRON HCL 4 MG/2 ML VIAL IV PUSH ONE (12:00)
[2017-10-04] MEDS ORDERED: PROPOFOL 200 MG/20 ML AMP IV ONE (12:00)
[2017-10-04] MEDS ORDERED: LIDOCAINE HCL 1% PF 5 ML SYRINGE OTHER ONE (12:00)
[2017-10-04] MEDS ORDERED: MORPHINE SULFATE 4 MG/ML INJ IV PUSH ONE ×2 (12:15→15:45)
[2017-10-04 12:39] LABS: AUTOMATED NEUTROPHIL # 0.3 TH/MM3 (1.8-7.7); BASOPHIL % 0.5 % (0.0-2.0); EOSINOPHIL # 0.2 TH/MM3 (0-0.4); EOSINOPHIL % 5.1 % (0.0-4.0); HEMATOCRIT 34.7 % (39.0-51.0); HEMOGLOBIN 11.6 GM/DL (13.0-17.0); LYMPH % 38.3 % (9.0-44.0); LYMPHOCYTE # 1.2 TH/MM3 (1.0-4.8); MEAN CELL VOLUME 83.1 FL (80.0-100.0); MEAN CORPUSCULAR HEMOGLOBIN 27.7 PG (27.0-34.0); MEAN CORPUSCULAR HGB CONC 33.3 % (32.0-36.0); MEAN PLATELET VOLUME 6.5 FL (7.0-11.0); MONO % 45.2 % (0.0-8.0); MONOCYTE # 1.4 TH/MM3 (0-0.9); NEUT % 10.9 % (16.0-70.0); PLATELET COUNT 335 TH/MM3 (150-450); RED BLOOD COUNT 4.18 MIL/MM3 (4.50-5.90); RED CELL DISTRIBUTION WIDTH 13.3 % (11.6-17.2); WHITE BLOOD COUNT 3.1 TH/MM3 (4.0-11.0)
--- NOTE | 2017-10-04 12:59 | RADRPT ---
EXAM DATE: 10/04/2017 12:46 PM EDT AGE/SEX: 61 years / Male INDICATIONS: Pain in left hip post temporary antibiotic prosthesis placement. CLINICAL DATA: This is the patient's initial encounter. Patient reports that signs and symptoms have been present for 2 weeks and indicates a pain score of 9/10. MEDICAL/SURGICAL HISTORY: None. . Hip replacement, left. Hip replacement removal, antibiotic pl acement, left. COMPARISON: [facility], HIP LEFT (AP&LAT 2/3VWS) WO AP PELVIS, 09/05/2017. . FINDINGS: Views left hip are obtained. Temporary left hip antibiotic prosthesis noted. No fracture. Soft tissue calcifications. CONCLUSION: Left hip antibiotic prosthesis. Electronically signed by: Jagdish Gomez MD 10/04/2017 12:58 PM EDT
[2017-10-04 13:09] LABS: ALBUMIN 3.2 GM/DL (3.4-5.0); AST (GOT) 10 U/L (15-37); BLOOD UREA NITROGEN 7 MG/DL (7-18); CHLORIDE 103 MEQ/L (98-107); CREATININE 0.75 MG/DL (0.60-1.30); GLOMERULAR FILTRATION RATE 107 ML/MIN (>89); GLUCOSE,RANDOM 81 MG/DL (74-106); SODIUM (NA) 140 MEQ/L (136-145)
[2017-10-04 13:10] LABS: ALT (GPT) 25 U/L (12-78)
[2017-10-04 13:12] LABS: ALKALINE PHOSPHATASE 172 U/L (45-117); TOTAL BILIRUBIN ADULT 0.5 MG/DL (0.2-1.0); TOTAL PROTEIN 7.7 GM/DL (6.4-8.2)
[2017-10-04 13:45] LABS: BANDS 4 % (0-6); BASOPHILS 2 % (0-2); LYMPHOCYTES 41 % (9-44); MONOCYTES 32 % (0-8); NEUTROPHIL # MANUAL DIFF 0.6 TH/MM3 (1.8-7.7); POLYS (SEG NEUTROPHILS) 16 % (16-70)
--- NOTE | 2017-10-04 15:23 | RADRPT ---
EXAM DATE: 10/04/2017 3:12 PM EDT AGE/SEX: 61 years / Male INDICATIONS: Osteomyelitis. CLINICAL DATA: This is the patient's initial encounter. Patient reports that signs and symptoms have been present for 1 day and indicates a pain score of 7/10. MEDICAL/SURGICAL HISTORY: None. . Left hip replacement, revision. COMPARISON: No prior exams available for comparison. TECHNIQUE: Multiplanar, multisequence MRI examination was performed without contrast and after th e intravenous administration of 18 ml Omniscan (gadodiamide) contrast as a single exam dose. FINDINGS: On MRI there is abnormal soft tissue swelling and edema in the musculature around the proximal left f emur including the iliopsoas muscle and posterior gluteal musculature and extending into the proximal thigh musculature involving both the anterior and posterior musculature and extending into the adduc tor musculature. Abnormal cortical signal is seen around the stem component of the prosthesis and the re is a fluid collection in the lateral left thigh that has an AP diameter of about 6 cm and is trian gular in shape extending to the skin surface with a lateral diameter of about 5.7 cm. The marrow enha nces both at the acetabulum around the prosthesis and also in the proximal femur around the stem comp onent of the prosthesis which is most characteristic of osteomyelitis given the reported history of s uch. Right hip appears intact. CONCLUSION: 1. Abnormal marrow edema and enhancement involving the acetabulum and proximal left femoral shaft wi th surrounding muscular and subcutaneous edematous change and fluid collection tracking from the late ral thigh musculature to the cutaneous surface. Findings are most characteristic of the reported hist ory of osteomyelitis. Electronically signed by: Aniceto Hicks MD 10/04/2017 3:21 PM EDT
[2017-10-04] MEDS ORDERED: LEVOFLOXACIN 750 MG PREMIX INJ 150 ML IV ONE (15:45)
--- NOTE | 2017-10-04 16:09 | PD ---
HPI Chief Complaint: Pain: Acute or Chronic Time Seen by Provider: 11:54 Travel History International Travel<30 days: No Contact w/Intl Traveler<30days: No Traveled to known affect area: No History of Present Illness HPI Patient is a 61 year old male, s/p hip replacement that got infected with subsequent removal of the prosthesis, who comes in complaining of left hip pain and swelling. [facility] and receiving Vancomycin IV since the end of August. He says for the past week his hip has become more painful. He denies fever or chills. He has been taking hydrocodone for pain without relief. Severity is moderate. PFSH Past Medical History Arthritis: Yes Cancer: No Cardiovascular Problems: No Diabetes: No Endocrine: No Genitourinary: No Hepatitis: No Hiatal Hernia: No Immune Disorder: No Musculoskeletal: Yes Neurologic: No Psychiatric: No Reproductive: No Respiratory: No Sickle Cell Disease: No Thyroid Disease: No Past Surgical History Abdominal Surgery: Yes (appendectomy) AICD: No Cardiac Surgery: No Ear Surgery: No Endocrine Surgery: No Eye Surgery: No Genitourinary Surgery: No Joint Replacement: Yes (lt hip) Oral Surgery: No Pacemaker: No Thoracic Surgery: No Social History Tobacco Use: No Substance Use: No Allergies-Medications (Allergen,Severity, Reaction): Coded Allergies: No Known Allergies (Unverified Allergy, Unknown, 10/04/17) Reported Meds & Prescriptions Reported Meds & Active Scripts Active Enoxaparin Inj (Enoxaparin Sodium) 40 Mg/0.4 Ml Syr 40 Mg SQ DAILY 10 Days Start Aspirin after Lovenox is completed. Aspirin 325 Mg Tab 325 Mg PO DAILY Start Aspirin after Lovenox is completed. [place] (Hydrocodone-Acetaminophen) 5 Mg-325 Mg Tab 1-2 Tab PO Q4H PRN Flexeril (Cyclobenzaprine HCl) 5 Mg Tab 5 Mg PO BID Diazepam 5 Mg Tab 5 Mg PO TID PRN [place] (Hydrocodone-Acetaminophen) 10-325 Mg Tab 1 Tab PO Q4H PRN Ambien (Zolpidem Tartrate) 10 Mg Tab 10 Mg PO HS PRN Aspirin 81 Low Dose (Aspirin) 81 Mg Chew 81 Mg CHEW BID Reported Ambien (Zolpidem Tartrate) 10 Mg Tab 10 Mg PO HS PRN Valium (Diazepam) 5 Mg Tab 5 Mg PO DIRECTED Flexeril (Cyclobenzaprine HCl) 5 Mg Tab 5 Mg PO BID Review of Systems Except as stated in HPI: all other systems reviewed are Neg General / Constitutional: No: Fever, Chills HENT: No: Headaches, Lightheadedness Cardiovascular: No: Chest Pain or Discomfort Respiratory: No: Shortness of Breath Gastrointestinal: No: Nausea, Vomiting Musculoskeletal: Positive: Edema, Pain Skin: Positive Change in Pigmentation, No Rash Neurologic: No: Weakness, Dizziness Physical Exam Narrative GENERAL: Awake and alert, in no acute distress. SKIN: Left hip surgical site is erythematous and warm to the touch. No active drainage. HEAD: Atraumatic. Normocephalic. EYES: Pupils equal and round. No scleral icterus. ENT: Mucous membranes pink and moist. NECK: Trachea midline. No JVD. CARDIOVASCULAR: Regular rate and rhythm. No murmur appreciated. RESPIRATORY: No accessory muscle use. Clear to auscultation. Breath sounds equal bilaterally. GASTROINTESTINAL: Abdomen soft, non-tender, nondistended. MUSCULOSKELETAL: No obvious deformities. No clubbing. No cyanosis. Swelling of the left hip, tender to palpation, pain with movement of the left hip. NEUROLOGICAL: Awake and alert. No obvious cranial nerve deficits. Motor grossly within normal limits. Normal speech. PSYCHIATRIC: Appropriate mood and affect; insight and judgment normal. Data Data Last Documented VS Vital Signs Date Time Temp Pulse Resp B/P (MAP) Pulse Ox O2 Delivery O2 Flow Rate FiO2 10/04/17 12:15 18 10/04/17 11:38 99.0 119 151/91 (111) 97 Orders Orders Iv Access Insert/Monitor (10/04/17 12:03) Complete Blood Count With Diff (10/04/17 12:03) Comprehensive Metabolic Panel (10/04/17 12:03) Westergren Sedimentation Rate (10/04/17 12:03) C-Reactive Protein (Crp) (10/04/17 12:03) Morphine Inj (Morphine Inj) (10/04/17 12:15) Mri Joint Hip W&W/O Contrast (10/04/17 ) Hip, Uni(Ap&Lat) Wo Ap Pelvis (10/04/17 ) Gadodiamide Pf Inj (Omniscan Pf Inj) (10/04/17 11:33) Levofloxacin 750 Mg Premix Inj (Levaquin (10/04/17 15:45) Morphine Inj (Morphine Inj) (10/04/17 15:45) Admit Order (Ed Use Only) (10/04/17 ) Admit To Inpatient (10/04/17 ) Code Status (10/04/17 16:30) Vital Signs (Adult) Q4H (10/04/17 16:30) Activity Bed Rest (10/04/17 16:30) Special Procedures Tech / Telemetry .CONTINUOUS (10/04/17 16:30) Sodium Chloride 0.9% Flush (Ns Flush) (10/04/17 16:30) Sodium Chloride 0.9% Flush (Ns Flush) (10/04/17 21:00) Acetaminophen (Tylenol) (10/04/17 16:30) Temazepam (Restoril) (10/04/17 16:30) Complete Blood Count With Diff (10/05/17 06:00) Urinalysis - C+S If Indicated (10/04/17 16:30) Chest, Single Ap (10/04/17 16:30) Scd Bilateral/Knee High TOMY.BID (10/04/17 16:30) Docusate Sodium-Senna (Mitra-Colace) (10/04/17 21:00) Magnesium Hydroxide Liq (Milk Of Magnesi (10/04/17 16:30) Inpatient Certification (10/04/17 ) Labs Laboratory Tests Test 10/04/17 12:20 White Blood Count 3.1 TH/MM3 Red Blood Count 4.18 MIL/MM3 Hemoglobin 11.6 GM/DL Hematocrit 34.7 % Mean Corpuscular Volume 83.1 FL Mean Corpuscular Hemoglobin 27.7 PG Mean Corpuscular Hemoglobin Concent 33.3 % Red Cell Distribution Width 13.3 % Platelet Count 335 TH/MM3 Mean Platelet Volume 6.5 FL Neutrophils (%) (Auto) 10.9 % Lymphocytes (%) (Auto) 38.3 % Monocytes (%) (Auto) 45.2 % Eosinophils (%) (Auto) 5.1 % Basophils (%) (Auto) 0.5 % Neutrophils # (Auto) 0.3 TH/MM3 Lymphocytes # (Auto) 1.2 TH/MM3 Monocytes # (Auto) 1.4 TH/MM3 Eosinophils # (Auto) 0.2 TH/MM3 Basophils # (Auto) 0.0 TH/MM3 CBC Comment AUTO DIFF Differential Total Cells Counted 100 Neutrophils % (Manual) 16 % Band Neutrophils % 4 % Lymphocytes % 41 % Monocytes % 32 % Eosinophils % 5 % Basophils % 2 % Neutrophils # (Manual) 0.6 TH/MM3 Differential Comment FINAL DIFF MANUAL Platelet Estimate NORMAL Platelet Morphology Comment NORMAL Erythrocyte Sedimentation Rate 83 mm/hr Blood Urea Nitrogen 7 MG/DL Creatinine 0.75 MG/DL Random Glucose 81 MG/DL Total Protein 7.7 GM/DL Albumin 3.2 GM/DL Calcium Level 9.0 MG/DL Alkaline Phosphatase 172 U/L Aspartate Amino Transf (AST/SGOT) 10 U/L Alanine Aminotransferase (ALT/SGPT) 25 U/L Total Bilirubin 0.5 MG/DL Sodium Level 140 MEQ/L Potassium Level 3.8 MEQ/L Chloride Level 103 MEQ/L Carbon Dioxide Level 27.0 MEQ/L Anion Gap 10 MEQ/L Estimat Glomerular Filtration Rate 107 ML/MIN C-Reactive Protein 12.00 MG/DL MDM Medical Decision Making Medical Screen Exam Complete: Yes Emergency Medical Condition: Yes Medical Record Reviewed: Yes Differential Diagnosis osteomyelitis vs abscess vs cellulitis Narrative Course Patient is a 61 year old male who comes in complaining of left hip pain. Exam shows erythema and warmth around the left hip surgical site. IV established, labs sent. Labs concerning for neutrophil count of 300. ESR and CRP are elevated. MRI of the hip performed shows what appears to be worsening infection. Last 24 hours Impressions Hip X-Ray 10/04/17 0000 Signed Impressions: CONCLUSION: Left hip antibiotic prosthesis. Hip MRI 10/04/17 0000 Signed Impressions: CONCLUSION: 1. Abnormal marrow edema and enhancement involving the acetabulum and proximal left femoral shaft with surrounding muscular and subcutaneous edematous change and fluid collection tracking from the lateral thigh musculature to the cutane ous surface. Findings are most characteristic of the reported history of osteom yelitis. I spoke with Dr. Banda of orthopedics who suggests IR consult for drainage of his fluid collection/repeat culture. IV antibiotics and admission. Levaquin given based on previous culture. Admitted to medicine. Diagnosis Primary Impression: Infection of prosthetic total hip joint Qualified Codes: T84.59XD - Infection and inflammatory reaction due to other internal joint prosthesis, subsequent encounter; Z96.649 - Presence of unspecified artificial hip joint Admitting Information Admitting Physician Requests: Admit Scripts Enoxaparin Inj (Enoxaparin Inj) 40 Mg/0.4 Ml Syr 40 MG SQ DAILY for Blood Clot Prevention for 10 Days, SYRINGE 0 Refills Start Aspirin after Lovenox is completed. Prov: Aubrey Banda MD 10/04/17 Aspirin (Aspirin) 325 Mg Tab 325 MG PO DAILY for Prevent Blood Clot, #30 TAB 0 Refills Start Aspirin after Lovenox is completed. Prov: Aubrey Banda MD 10/04/17 Hydrocodone-Acetaminophen ([place]) 5 Mg-325 Mg Tab 1-2 TAB PO Q4H Y for PAIN, #50 TAB 0 Refills Prov: Aubrey Banda MD 10/04/17 Sapphire Dukes MD Oct 04, 2017 16:09
[2017-10-04] MEDS ORDERED: NALOXONE HCL 0.4 MG/ML AMP IV PUSH PRN ×2 (16:30→18:15)
[2017-10-04] MEDS ORDERED: ONDANSETRON HCL 4 MG/2 ML VIAL IVP PRN ×2 (16:30→18:15)
[2017-10-04] MEDS ORDERED: MAGNESIUM HYDROXIDE SUSP 30 ML CUP PO PRN ×2 (16:30→18:15)
[2017-10-04] MEDS ORDERED: TEMAZEPAM 15 MG CAP PO PRN (16:30)
[2017-10-04] MEDS ORDERED: ACETAMINOPHEN 325 MG TAB PO PRN (16:30)
[2017-10-04] MEDS ORDERED: ZOLPIDEM TARTRATE 10 MG TAB PO PRN (16:45)
[2017-10-04] MEDS ORDERED: HYDROmorphone HCL PF 1 MG/ML VIAL IV PUSH PRN (16:45)
[2017-10-04] MEDS ORDERED: LORazepam 2 MG/ML VIAL IV PUSH PRN (16:45)
--- NOTE | 2017-10-04 16:47 | RADRPT ---
EXAM DATE: 10/04/2017 4:45 PM EDT AGE/SEX: 61 years / Male INDICATIONS: Evaluate for pneumonia, pneumothorax and other communicable diseases. Pre-op for left h ip surgery. CLINICAL DATA: This is the patient's initial encounter. Patient reports that signs and symptoms have been present for 1 day and indicates a pain score of 0/10. MEDICAL/SURGICAL HISTORY: None. None. COMPARISON: No prior exams available for comparison. FINDINGS: A single AP view of the chest demonstrates the lungs to be symmetrically aerated without evidence of mass, infiltrate or effusion. Right PICC line in superior vena cava. The cardiomediastinal contours a re unremarkable. Osseous structures are intact. CONCLUSION: Right PICC line in superior vena cava. No active disease. Electronically signed by: Aniceto Hicks MD 10/04/2017 4:46 PM EDT
--- NOTE | 2017-10-04 17:16 | MB ---
cc: Aubrey Banda MD DATE: 10/04/2017 REASON FOR CONSULTATION: Left hip recurrent infection. HISTORY OF PRESENT ILLNESS: The patient is a 61-year-old man who underwent a left total hip arthroplasty on 07/31/2017. This was unfortunately complicated with infection where he underwent surgical management on 09/05/2017 for irrigation and debridement of the left hip with removal of a total hip prosthesis and placement of antibiotic spacer. The patient was placed on vancomycin postoperatively at the rehab facility. The patient says that in the last day, he noticed significant pain developing in the hip and he started developing redness in the hip, and he says it feels very similar to what happened when he developed the infection on the left hip previously. The patient came to [facility]. He had a stat MRI completed, which showed a fluid collection of the left hip along with evidence of the osteomyelitis along with the hip spacer. The patient had labs performed as well. He did not describe any specific new numbness or tingling going down the left lower extremity. PAST MEDICAL HISTORY: Positive for arthritis and the previous infection. PAST SURGICAL HISTORY: Appendectomy and the surgeries for the hip as described. SOCIAL HISTORY: Does not have substance abuse. ALLERGIES: NO KNOWN DRUG ALLERGIES. MEDICATIONS: See the chart. Note he was on vancomycin per his report. He does take a low-dose aspirin. REVIEW OF SYSTEMS: A 12-point review of systems is negative except noted in history of present illness. PHYSICAL EXAMINATION: VITAL SIGNS: Patient's temperature shows 99.0, pulse is 119, respirations 20, blood pressure 151/91. GENERAL: The patient is awake, alert and oriented x 3. Normal affect, insight, and judgment. He is in mild distress due to pain. HEENT: Head is atraumatic. Oropharynx is moist. Extraocular muscles are intact. NECK: Supple. HEART: Regular rate and rhythm. LUNGS: No audible wheeze. Good inspiratory effort. BACK: No CVA tenderness. EXTREMITIES: Left hip shows an anterior incision which has underlying it at least moderate swelling and there feels that there is some fluctuance. The incision line is erythematous of a moderate degree. There is even a small area that may have a little bit of breakdown, but there is no actual drainage yet from this. The calf has no swelling or tenderness He has 2+ dorsalis pedis pulses. He can actually move the toes well. LABORATORY DATA: Shows a white cell count of 3.1, which is low. Hematocrit of 34.7. His neutrophil number is low at 0.3, his percentage is 38.3. Chemistry shows a creatinine of 0.75, CRP is elevated significantly at 12. IMAGING STUDIES: I reviewed the images and the reports that show the patient has a left hip cement spacer in place and then the MRI of the hip does show a fluid collection that is starting to track toward the skin. He does have evidence of abnormal marrow edema enhancement involving the acetabulum and proximal femur along with subcutaneous edematous changes. IMPRESSION: 1. Left hip, status post resection arthroplasty for infection per report by the patient being methicillin-resistant Staphylococcus aureus, treated with vancomycin, which was unsuccessful. 2. Left hip recurrent abscess and evidence of ongoing osteomyelitis. MEDICAL DECISION MAKING: Given the current clinical situation, I did offer the patient several different options. One option is to have a fluoroscopic-guided aspiration of the hip to look at the fluid to have an analysis on it to determine about moving forward with surgical management. I did offer the patient also with moving more expeditiously to surgical management for an irrigation and debridement with arthrotomy and washout. The patient says that he very much wants to move forward with surgical management for the hip. He does not want to delay the care for the next couple of days We talked about issues with removal of the spacer. We talked about that ultimately, he may need to have further surgical management for an exchange of the spacer, may be able to put antibiotic beads into the hip as well. The patient understands there are associated risks with surgical management and that this is a highly complicated situation as he has already failed now a recent surgery for the infection at least clinically. He will need infectious disease physicians to help monitor and work on postoperative management. He understands the risks of surgery include, but are not limited to injury to nerves, blood vessels, bleeding, infection, failure of the surgery, repeat need for irrigation and debridement, possible exchange of spacer, DVT, pulmonary embolus, pneumonia and . The patient wants to move forward with surgical management. MD BARBER Alex/JOSAFAT , 04:33 PM , 05:13 PM
[2017-10-04] MEDS ORDERED: ENOX40IN SQ (17:33)
[2017-10-04] MEDS ORDERED: ASPI-183 PO (17:33)
[2017-10-04] MEDS ORDERED: NORC5TAB PO (17:33)
[2017-10-04] MEDS: SODIUM CHLOR 0.9% 1000 ML INJ 1,000 ML IV SCH (18:07)
[2017-10-04] MEDS ORDERED: diphenhydrAMINE HCL 50 MG/ML VIAL IV PUSH PRN (18:15)
[2017-10-04] MEDS ORDERED: BISACODYL 10 MG SUPP RECTAL PRN (18:15)
[2017-10-04] MEDS ORDERED: ALUMINUM/MAGNESIUM/SIMETH 30 ML CUP PO PRN (18:15)
[2017-10-04] MEDS ORDERED: ACETAMINOPHEN/HYDROcodone 325 MG/5 MG TAB PO PRN (18:15)
[2017-10-04] MEDS ORDERED: VANCOMYCIN INJ 1,000 MG in SODIUM CHLOR 0.9% 250 ML INJ 250 ML IV SCH (18:15)
[2017-10-04] MEDS ORDERED: Post-op Orders (for Pharmacy) XX ONE (18:15)
[2017-10-04] MEDS ORDERED: Vancomycin Consult Pharmacy 1 EA OTHER SCH (18:15)
[2017-10-04] MEDS ORDERED: VANCOMYCIN HCL 1000 MG VIAL ONE ×3 (18:47→19:07)
--- NOTE | 2017-10-04 19:41 | PD.OP ---
cc: Aubrey Banda MD Operative Report Date of Surgery: Oct 04, 2017 Preoperative Diagnosis: Left hip suspected recurrent infection status post resection arthroplasty and antibiotic spacer Postoperative Diagnosis: Same Procedure: Left hip arthrotomy with irrigation and debridement with placement of antibiotic beads Anesthesia: General Surgeon: Aubrey Banda Campaign Marketing Specialist(s): MAYELIN Bell The surgical procedure was assisted by my Advanced Registered Nurse Practitioner. My MILL TURNER presence was necessary throughout this case for the manipulation and positioning of the surgical extremity. My MILL TURNER was assisting me throughout the duration of this procedure. The skill set of an Advance Registered Nurse Practitioner was medically necessary to complete this procedure. During the surgical case, the surgical scrub technician was working at the back table and the Advance Registered Nurse Practitioner was directly assisting me. Operation and Findings: Estimated blood loss: 200 cc The patient was brought back to the operative theater. General anesthesia was administered. The patient had received intravenous Levaquin prior to coming to the operative theater. We held off on other antibiotics until we took cultures. The left lower extremity was prepped and draped in usual sterile fashion. We excised the previous incision site. The proximal aspect of the wound had some superficial necrosis of the soft tissues with a little bit of undermining under the skin. On the distal aspect of the incision as soon as we opened it there was a significant cavity that was communicating with the joint. We evacuated approximately 150 cc of slightly cloudy brownish fluid. We took for cultures of this. We incised the mid and proximal aspect of the deep tissues for arthrotomy and better exposure to the hip joint. We found a significant amount of necrotic whitish tissue that was deep. I collected all of this tissue and sent it for a tissue culture. Ultimately we took for swabs plus this tissue culture. The antibiotic spacer was visualized. When we rotated the hip we expressed clear fluid around the spacer. We found more of this whitish tissue by the area deep to the abductors. We excised all of this sharply. We also did debridement using a lap pad with an abrasion technique of all of the soft tissues. We then irrigated the hip with 6 L of saline with antibiotics. We then exchanged all instruments and placed new drapes and changed gloves. We made up 50 cc of stimulan antibiotic beads with 2 g of vancomycin. We closed the deep tissues including that distal area with #1 PDS. Prior to closure we placed a deep drain. We closed the superficial area with further #1 PDS followed by 2-0 Monocryl and emelia. The drain was sewn in. Postoperative plan is to obtain an infectious disease consultation. The patient will be toe-touch weightbearing on the left lower extremity. We will follow the cultures. The patient ultimately will return back to the care of Dr. Taavres once he is available. DVT prophylaxis with Lovenox followed by aspirin. Aubrey Banda MD Oct 04, 2017 19:41
[2017-10-04] MEDS ORDERED: DO NOT ADM ANY ANTICOAGULANT DRUGS PRN (20:05)
[2017-10-04] MEDS ORDERED: *morphine SULFATE 10 MG/ML PERIprocedure ONLY ONE (20:15)
[2017-10-04] MEDS ORDERED: MIDAZOLAM HCL 2 MG/2 ML VIAL ONE (20:28)
[2017-10-04 20:50] VITALS: BP 121/75; PULSE 99; RESP 18; TEMP 98.8; O2SAT 96
[2017-10-04] MEDS: SODIUM CHLORIDE 0.9% FLUSH 10 ML FLUSH IV FLUSH SCH (21:31)
[2017-10-04] MEDS: DOCUSATE SODIUM 50 MG/SENNA 8.6 MG TAB PO SCH (21:31)
[2017-10-04] MEDS ORDERED: VANCOMYCIN INJ 2,000 MG in SODIUM CHLORID 0.9% 500 ML INJ 500 ML IV ONE (22:00)
[2017-10-04 22:45] VITALS: PULSE 95
[2017-10-04] MEDS: MORPHINE SULFATE 4 MG/ML INJ IV PUSH PRN (23:58)
[2017-10-05] VITALS (8 sets, daily range): BP systolic 123–178; BP diastolic 60–85; PULSE 95–116; RESP 17–18; TEMP 97.9–99.3; O2SAT 95–97
[2017-10-05] MEDS: SODIUM CHLOR 0.9% 1000 ML INJ 1,000 ML IV SCH ×3 (02:36→21:10)
[2017-10-05] MEDS: MORPHINE SULFATE 4 MG/ML INJ IV PUSH PRN ×6 (02:39→21:50)
[2017-10-05 05:07] LABS: BASOPHIL % 0.7 % (0.0-2.0); EOSINOPHIL # 0.2 TH/MM3 (0-0.4); HEMATOCRIT 30.1 % (39.0-51.0); LYMPH % 35.5 % (9.0-44.0); MEAN CELL VOLUME 82.4 FL (80.0-100.0); MEAN CORPUSCULAR HEMOGLOBIN 27.3 PG (27.0-34.0); MEAN CORPUSCULAR HGB CONC 33.1 % (32.0-36.0); MEAN PLATELET VOLUME 6.2 FL (7.0-11.0); MONO % 37.7 % (0.0-8.0); NEUT % 20.1 % (16.0-70.0); PLATELET COUNT 285 TH/MM3 (150-450); RED BLOOD COUNT 3.65 MIL/MM3 (4.50-5.90); RED CELL DISTRIBUTION WIDTH 13.4 % (11.6-17.2); WHITE BLOOD COUNT 2.7 TH/MM3 (4.0-11.0)
[2017-10-05 05:17] LABS: AUTOMATED NEUTROPHIL # 0.5 TH/MM3 (1.8-7.7)
[2017-10-05 05:34] LABS: CALCIUM 8.8 MG/DL (8.5-10.1); CREATININE 0.69 MG/DL (0.60-1.30)
[2017-10-05 07:43] LABS: BANDS 1 % (0-6); BASOPHILS 1 % (0-2); LYMPHOCYTES 46 % (9-44); MONOCYTES 25 % (0-8); POLYS (SEG NEUTROPHILS) 15 % (16-70)
[2017-10-05 07:53] LABS: NEUTROPHIL # MANUAL DIFF 0.4 TH/MM3 (1.8-7.7)
[2017-10-05] MEDS: ACETAMINOPHEN/HYDROcodone 325 MG/10 MG TAB PO PRN ×4 (08:20→21:10)
[2017-10-05] MEDS: DOCUSATE SODIUM 50 MG/SENNA 8.6 MG TAB PO SCH ×2 (09:00→20:09)
[2017-10-05] MEDS: SODIUM CHLORIDE 0.9% FLUSH 10 ML FLUSH IV FLUSH SCH ×2 (09:00→20:09)
[2017-10-05] MEDS ORDERED: VANCOMYCIN 1,500 MG/NS 500 ML IV SCH ×2 (10:00)
--- NOTE | 2017-10-05 10:32 | HHI.HP ---
HPI Service [facility] Hospitalists Primary Care Physician Monik Antony Jr, MD Admission Diagnosis osteomyelitis Chief Complaint: left hip pain, swelling, and redness. Travel History International Travel<30 Days: No Contact w/Intl Traveler <30 Da: No Traveled to Known Affected Are: No History of Present Illness Unable to see pt 10/04 as pt was in the OR. 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 Procedure performed by orthopedist, Dr. Adis Tavares. Patient discharged to SNF 08/03/17. Hospitalization 09/0509/10/17 Patient readmitted with infection of hip prosthesis. On 09/05/17 patient underwent hardware removal with placement of antibiotic spacer by Dr. Adis Tavares. Readmission 10/04/17 Prior to admission pt was receiving IV Vancomycin and PO Rifampin with stop date of 10/22/17 under the direction of Dr. Ibrahim. Pt at [facility], but frequently absent from the facility. I came to [facility] to reasses pt on Friday , October 01, 2017, but pt gone for the day from the Facility. Patient readmitted to [facility] 10/04/2017 Patient complained of swelling, pain, and redness at left hip. MRI of left hip (10/04/17) showed fluid collection possible osteomyelitis. Patient was taken to the OR by Dr. Aubrey Torres on 10/05/17 and underwent left hip arthrotomy with irrigation and debridement. Patient also underwent placement of antibiotic beads with 2 g of vancomycin. Patient will likely need further surgical revision. Patient will be seen by his usual orthopedic surgeon Dr. Adis Tavares on Friday. Will follow intraoperative cultures. Await input from infectious disease. Review of Systems Constitutional: DENIES: Diaphoretic episodes, Fatigue, Fever, Weight gain, Weight loss, Chills, Dizziness, Change in appetite, Night Sweats Endocrine: DENIES: Heat/cold intolerance, Polydipsia, Polyuria, Polyphagia Eyes: DENIES: Blurred vision, Diplopia, Eye inflammation, Eye pain, Vision loss , Photosensitivity, Double Vision Ears, nose, mouth, throat: DENIES: Tinnitus, Hearing loss, Vertigo, Nasal discharge, Oral lesions, Throat pain, Hoarseness, Ear Pain, Running Nose, Epistaxis, Sinus Pain, Toothache, Odynophagia Respiratory: DENIES: Apneas, Cough, Snoring, Wheezing, Hemoptysis, Sputum production, Shortness of breath Cardiovascular: DENIES: Chest pain, Palpitations, Syncope, Dyspnea on Exertion , PND, Lower Extremity Edema, Orthopnea, Claudication Gastrointestinal: DENIES: Abdominal pain, Black stools, Bloody stools, BRB per rectum, Constipation, Diarrhea, GERD, Nausea, Reflux, Vomiting, Difficulty Swallowing, Anorexia Genitourinary: DENIES: Urinary frequency, Urinary incontinence, Urgency, Hematuria, Dysuria, Nocturia Musculoskeletal: COMPLAINS OF: Stiffness, Joint Swelling, DENIES: Joint pain, Muscle aches, Back pain, Neck pain Integumentary: DENIES: Abnormal pigmentation, Nail changes, Pruritus, Rash Hematologic/lymphatic: DENIES: Bruising, Lymphadenopathy Immunologic/allergic: DENIES: Eczema, Urticaria Neurologic: DENIES: Abnormal gait, Headache, Localized weakness, Paresthesias, Seizures, Speech Problems, Tremor, Poor Balance Psychiatric: DENIES: Anxiety, Confusion, Mood changes, Depression, Hallucinations, Agitation, Suicidal Ideation, Homicidal Ideation, Delusions, History of Bipolar, History of Schizophrenia Past Family Social History Past Medical History Chronic pain Avascular necrosis of the left hip Arthritis Past Surgical History Back surgery L4-L5 Appendectomy Left total hip arthroplasty July 2017 Allergies: Coded Allergies: No Known Allergies (Unverified Allergy, Unknown, 10/04/17) Family History Noncontributory Social History - Per [facility] Case Mgmt, patient's fall was non-hygienic. Most recently patient at [facility] with frequent absences - former smoker - denies alcohol - denies illicit street drugs Physical Exam Vital Signs Vital Signs Date Time Temp Pulse Resp B/P (MAP) Pulse Ox O2 Delivery O2 Flow Rate FiO2 10/05/17 08:00 99.3 106 17 178/85 (116) 97 10/05/17 04:00 98.6 95 18 123/75 (91) 97 10/05/17 02:18 Nasal Cannula 3.00 10/05/17 00:00 98.6 98 18 125/72 (89) 95 10/04/17 22:45 95 10/04/17 20:50 98.8 99 18 121/75 (90) 96 10/04/17 20:30 98.6 100 19 131/80 (97) 98 Nasal Cannula 2 10/04/17 20:15 102 19 131/83 (99) 98 Nasal Cannula 2 10/04/17 20:02 98.6 109 19 139/94 (109) 99 Nasal Cannula 2 10/04/17 17:03 10/04/17 12:15 18 10/04/17 11:38 99.0 119 20 151/91 (111) 97 Physical Exam GENERAL: This is a well-nourished, well-developed patient, in no apparent distress. SKIN: No rashes, ecchymoses or lesions. Cool and dry. HEAD: Atraumatic. Normocephalic. No temporal or scalp tenderness. EYES: Pupils equal round and reactive. Extraocular motions intact. No scleral icterus. No injection or drainage. ENT: Nose without bleeding, purulent drainage or septal hematoma. Throat without erythema, tonsillar hypertrophy or exudate. Uvula midline. Airway patent. NECK: Trachea midline. No JVD or lymphadenopathy. Supple, nontender, no meningeal signs. CARDIOVASCULAR: Regular rate and rhythm without murmurs, gallops, or rubs. RESPIRATORY: Clear to auscultation. Breath sounds equal bilaterally. No wheezes , rales, or rhonchi. GASTROINTESTINAL: Abdomen soft, non-tender, nondistended. No hepato-splenomegaly , or palpable masses. No guarding. MUSCULOSKELETAL: Extremities without clubbing, cyanosis, or edema. No joint tenderness, effusion, or edema noted. No calf tenderness. Negative Homans sign bilaterally. NEUROLOGICAL: Awake and alert. Cranial nerves II through XII intact. Motor and sensory grossly within normal limits. Five out of 5 muscle strength in all muscle groups. Normal speech. Laboratory Laboratory Tests Test 10/04/17 12:20 10/05/17 05:01 White Blood Count 3.1 2.7 Red Blood Count 4.18 3.65 Hemoglobin 11.6 10.0 Hematocrit 34.7 30.1 Mean Corpuscular Volume 83.1 82.4 Mean Corpuscular Hemoglobin 27.7 27.3 Mean Corpuscular Hemoglobin Concent 33.3 33.1 Red Cell Distribution Width 13.3 13.4 Platelet Count 335 285 Mean Platelet Volume 6.5 6.2 Neutrophils (%) (Auto) 10.9 20.1 Lymphocytes (%) (Auto) 38.3 35.5 Monocytes (%) (Auto) 45.2 37.7 Eosinophils (%) (Auto) 5.1 6.0 Basophils (%) (Auto) 0.5 0.7 Neutrophils # (Auto) 0.3 0.5 Lymphocytes # (Auto) 1.2 1.0 Monocytes # (Auto) 1.4 1.0 Eosinophils # (Auto) 0.2 0.2 Basophils # (Auto) 0.0 0.0 CBC Comment AUTO DIFF AUTO DIFF Differential Total Cells Counted 100 100 Neutrophils % (Manual) 16 15 Band Neutrophils % 4 1 Lymphocytes % 41 46 Monocytes % 32 25 Eosinophils % 5 12 Basophils % 2 1 Neutrophils # (Manual) 0.6 0.4 Differential Comment FINAL DIFF MANUAL FINAL DIFF MANUAL Platelet Estimate NORMAL NORMAL Platelet Morphology Comment NORMAL NORMAL Erythrocyte Sedimentation Rate 83 Blood Urea Nitrogen 7 7 Creatinine 0.75 0.69 Random Glucose 81 87 Total Protein 7.7 Albumin 3.2 Calcium Level 9.0 8.8 Alkaline Phosphatase 172 Aspartate Amino Transf (AST/SGOT) 10 Alanine Aminotransferase (ALT/SGPT) 25 Total Bilirubin 0.5 Sodium Level 140 136 Potassium Level 3.8 3.9 Chloride Level 103 100 Carbon Dioxide Level 27.0 27.0 Anion Gap 10 9 Estimat Glomerular Filtration Rate 107 117 C-Reactive Protein 12.00 Red Cell Morphology Comment NORMAL Date/Time Source Procedure Growth Status 10/04/17 19:25 Wound Hip Fungal Smear Pending Received 10/04/17 19:25 Wound Hip Fungal Culture Pending Received Result Diagram: 10/05/17 0501 10/05/17 0501 Imaging Last Impressions Chest X-Ray 10/04/17 1630 Signed Impressions: CONCLUSION: Right PICC line in superior vena cava. No active disease. Hip X-Ray 10/04/17 0000 Signed Impressions: CONCLUSION: Left hip antibiotic prosthesis. Hip MRI 10/04/17 0000 Signed Impressions: CONCLUSION: 1. Abnormal marrow edema and enhancement involving the acetabulum and proximal left femoral shaft with surrounding muscular and subcutaneous edematous change and fluid collection tracking from the lateral thigh musculature to the cutane ous surface. Findings are most characteristic of the reported history of osteom yelitis. Septic Shock Reassessment Septic shock perfusion: reassessment completed Caprini VTE Risk Assessment Caprini VTE Risk Assessment: Mod/High Risk (score >= 2) Caprini Risk Assessment Model Point Value = 1 Point Value = 2 Point Value = 3 Point Value = 5 Age 41-60 Minor surgery BMI > 25 kg/m2 Swollen legs Varicose veins or History of unexplained or recurrent spontaneous Oral contraceptives or hormone replacement Sepsis (< 1 month) Serious lung disease, including pneumonia (< 1 month) Abnormal pulmonary function Acute myocardial infarction Congestive heart failure (< 1 month) History of inflammatory bowel disease Medical patient at bed rest Age 61-74 Arthroscopic surgery Major open surgery (> 45 min) Laparoscopic surgery (> 45 min) Malignancy Confined to bed (> 72 hours) Immobilizing plaster cast Central venous access Age >= 75 History of VTE Family history of VTE Factor V Leiden Prothrombin [id number] Lupus anticoagulant Anticardiolipin antibodies Elevated serum homocysteine Heparin-induced thrombocytopenia Other congenital or acquired thrombophilia Stroke (< 1 month) Elective arthroplasty Hip, pelvis, or leg fracture Acute spinal cord injury (< 1 month) Prophylaxis Regimen Total Risk Factor Score Risk Level Prophylaxis Regimen 0-1 Low Early ambulation 2 Moderate Order ONE of the following: *Sequential Compression Device (SCD) *Heparin 5000 units SQ BID 3-4 Higher Order ONE of the following medications: *Heparin 5000 units SQ TID *Enoxaparin/Lovenox 40 mg SQ daily (WT < 150 kg, CrCl > 30 mL/min) *Enoxaparin/Lovenox 30 mg SQ daily (WT < 150 kg, CrCl > 10-29 mL/min) *Enoxaparin/Lovenox 30 mg SQ BID (WT < 150 kg, CrCl > 30 mL/min) AND/OR *Sequential Compression Device (SCD) 5 or more Highest Order ONE of the following medications: *Heparin 5000 units SQ TID (Preferred with Epidurals) *Enoxaparin/Lovenox 40 mg SQ daily (WT < 150 kg, CrCl > 30 mL/min) *Enoxaparin/Lovenox 30 mg SQ daily (WT < 150 kg, CrCl > 10-29 mL/min) *Enoxaparin/Lovenox 30 mg SQ BID (WT < 150 kg, CrCl > 30 mL/min) AND *Sequential Compression Device (SCD) Assessment and Plan Problem List: (1) Infection of prosthetic total hip joint ICD Codes: T84.59XA - Infection and inflammatory reaction due to other internal joint prosthesis, initial encounter; Z96.649 - Presence of unspecified artificial hip joint Plan: Hospitalization 07/3108/03/17 Patient underwent left total hip arthroplasty by anterior approach on 07/31/17 for severe left hip pain secondary to 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 Procedure performed by orthopedist, Dr. Adis Tavares. Patient discharged to [facility] 08/03/17. Hospitalization 09/0509/10/17 Patient readmitted with infection of hip prosthesis. On 09/05/17 patient underwent hardware removal with placement of antibiotic spacer by Dr. Adis Tavares. Readmission 10/04/17 Prior to admission pt was receiving IV Vancomycin and PO Rifampin with stop date of 10/22/17 under the direction of Dr. Ibrahim. Pt at [facility], but frequently absent from the facility. I came to [facility] to reasses pt on Friday , October 01, 2017, but pt gone for the day from the Facility. Patient readmitted to [facility] 10/04/2017 Patient complained of swelling, pain, and redness at left hip. MRI of left hip (10/04/17) showed fluid collection possible osteomyelitis. - Patient was taken to the OR by Dr. Aubrey Torres on 10/05/17 and underwent left hip arthrotomy with irrigation and debridement. - Patient also underwent placement of antibiotic beads with 2 g of vancomycin - Pt will likely require further surgical revision. - Follow intraoperative cultures - Await Infectious Disease consult - IV Vancomyin - Pain control norco/dilaudid - DVT prophylaxis with SCDs - supportive care (2) Anxiety ICD Codes: F41.9 - Anxiety disorder, unspecified Status: Chronic Plan: - nikki huff Physician Certification 2 Midnight Certification Type: Admission for Inpatient Services Order for Inpatient Services The services are ordered in accordance with Medicare regulations or non- Medicare payer requirements, as applicable. In the case of services not specified as inpatient-only, they are appropriately provided as inpatient services in accordance with the 2-midnight benchmark. Estimated LOS (days): 3 3 days is the estimated time the patient will need to remain in the hospital, assuming treatment plan goals are met and no additional complications. Post-Hospital Plan: Not yet determined Problem Qualifiers (1) Infection of prosthetic total hip joint: Qualified Codes: T84.59XD - Infection and inflammatory reaction due to other internal joint prosthesis, subsequent encounter; Z96.649 - Presence of unspecified artificial hip joint Adonay Rene DO Oct 05, 2017 10:32
--- NOTE | 2017-10-05 10:46 | PD.ORT.PN ---
Subjective Post Op Day #: 1 Subjective Remarks Patient is OOB in chair. Patient reports decreased pressure to the left hip but states he is still having moderate to severe pain. Objective Vitals Vital Signs Date Time Temp Pulse Resp B/P (MAP) Pulse Ox O2 Delivery O2 Flow Rate FiO2 10/05/17 08:00 99.3 106 17 178/85 (116) 97 10/05/17 04:00 98.6 95 18 123/75 (91) 97 10/05/17 02:18 Nasal Cannula 3.00 10/05/17 00:00 98.6 98 18 125/72 (89) 95 10/04/17 22:45 95 10/04/17 20:50 98.8 99 18 121/75 (90) 96 10/04/17 20:30 98.6 100 19 131/80 (97) 98 Nasal Cannula 2 10/04/17 20:15 102 19 131/83 (99) 98 Nasal Cannula 2 10/04/17 20:02 98.6 109 19 139/94 (109) 99 Nasal Cannula 2 10/04/17 17:03 10/04/17 12:15 18 10/04/17 11:38 99.0 119 20 151/91 (111) 97 I/O 10/04/17 10/04/17 10/04/17 10/05/17 10/05/17 10/05/17 07:00 15:00 23:00 07:00 15:00 23:00 Intake Total 1400 ml 1620 ml Output Total 280 ml 2040 ml Balance 1120 ml -420 ml Intake Oral 1000 ml IV Total 200 ml 620 ml Other 1200 ml Output Urine Total 2000 ml Drainage Total 30 ml 40 ml Estimated Blood Loss 250 ml # Bowel Movements 0 Result Diagram: 10/05/17 0501 10/05/17 0501 Imaging Last 24 hours Impressions Chest X-Ray 10/04/17 1630 Signed Impressions: CONCLUSION: Right PICC line in superior vena cava. No active disease. Procedures Left hip arthrotomy with irrigation and debridement with placement of antibiotic beads Objective Remarks Dressings are C/D/I. EHL/TA/G intact. 2+ pedal pulse. Drain is intact and draining a moderate amount of serosanguineous drainage. Calf is soft and nontender. SILT distally. Assessment & Plan Ortho Post Op Day #: 1 Problem List: Assessment and Plan POD #1: Left hip arthrotomy with irrigation and debridement with placement of antibiotic beads 1. TTWB LLE 2. Lovenox followed by ASA for DVT prophylaxis 3. Ice to the left hip PRN 4. Follow intraoperative cultures. No growth as of today. 5. Will likely require ID management of ABX. 6. Will follow orthopaedically. Care will be transferred to [place] next week. Patient will probably require staged surgery, and may need further wash outs. 7. Maintain drain until minimal output. Will consider removal of drain POD #2. Regino Solis Oct 05, 2017 10:46
[2017-10-05] MEDS: ENOXAPARIN SODIUM 40 MG/0.4 ML SYRINGE SQ SCH (17:37)
--- NOTE | 2017-10-05 18:51 | PD.ID.CON ---
History of Present Illness Service Infectious disease Consult Requested By Dr. Rene Reason for Consult Evaluation and management of left hip prosthetic joint infection Primary Care Physician Monik Antony Jr, MD Diagnoses: History of Present Illness Mr. Orozco is a 61-year-old male with past medical history significant for left hip arthroplasty by anterior approach by Dr. 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 Subsequently patient was discharged to [facility] on August 03, 2017. Thereafter patient was readmitted with infection of the left hip prosthesis between September 05 - September 10, 2017. On September 05, 2017 patient underwent hardware removal with placement of antibiotic spacer by Dr. Tavares. Patient was seen by Dr. Margi Ashford of infectious disease and was discharged on IV vancomycin as well as p.o. rifampin with a stop date of October. Patient was seen in follow-up with Dr. Winters of infectious disease as outpatient. Dr. Rene was is the attending during this admission is also his supervising physician at [facility]. Reportedly patient is gone for entire day from the facility and this occurred on multiple occasions. With this background patient was readmitted to [place] on October 04, 2017 complaining of swelling pain and redness of his left hip. An MRI of the left hip was done on October 04, 2017 which showed fluid collection possible osteomyelitis. Patient was evaluated by Dr. Aubrey Banda and taken to the OR on October 05, 2017. Patient underwent irrigation debridement as well as placement of vancomycin beads. Intraoperative cultures are pending. Blood cultures have been ordered. Infectious disease is consulted for evaluation and management of left hip prosthetic joint infection. Review of Systems ROS Limitations: Poor Historian Past Family Social History Allergies: Coded Allergies: No Known Allergies (Unverified Allergy, Unknown, 10/04/17) Past Medical History Chronic pain Avascular necrosis of the left hip Arthritis Past Surgical History Back surgery L4-L5 Appendectomy Left total hip arthroplasty July 2017 Reported Medications Vancomycin IV at the intermediate. But I do not see rifampin on his medication administration record. Reported Meds & Active Scripts Active Enoxaparin Inj (Enoxaparin Sodium) 40 Mg/0.4 Ml Syr 40 Mg SQ DAILY 10 Days Start Aspirin after Lovenox is completed. Aspirin 325 Mg Tab 325 Mg PO DAILY Start Aspirin after Lovenox is completed. [place] (Hydrocodone-Acetaminophen) 5 Mg-325 Mg Tab 1-2 Tab PO Q4H PRN Flexeril (Cyclobenzaprine HCl) 5 Mg Tab 5 Mg PO BID Diazepam 5 Mg Tab 5 Mg PO TID PRN [place] (Hydrocodone-Acetaminophen) 10-325 Mg Tab 1 Tab PO Q4H PRN Ambien (Zolpidem Tartrate) 10 Mg Tab 10 Mg PO HS PRN Aspirin 81 Low Dose (Aspirin) 81 Mg Chew 81 Mg CHEW BID Reported Ambien (Zolpidem Tartrate) 10 Mg Tab 10 Mg PO HS PRN Valium (Diazepam) 5 Mg Tab 5 Mg PO DIRECTED Flexeril (Cyclobenzaprine HCl) 5 Mg Tab 5 Mg PO BID Active Ordered Medications Current Medications Medications (Trade) Dose Ordered Sig/Kaveh Route Start Time Stop Time Status Last Admin (NS Flush) 2 ml UNSCH PRN IV FLUSH 10/04/17 16:30 (NS Flush) 2 ml BID IV FLUSH 10/04/17 21:00 10/04/17 21:31 (Tylenol) 650 mg Q4H PRN PO 10/04/17 16:30 (Restoril) 15 mg HS PRN PO 10/04/17 16:30 (Mitra-Colace) 1 tab BID PO 10/04/17 21:00 10/05/17 09:00 (Milk Of Magnesia Liq) 30 ml Q12H PRN PO 10/04/17 16:30 ([place] 10-325 Mg) 1 tab Q4H PRN PO 10/04/17 16:45 10/05/17 17:37 (Dilaudid Pf Inj) 1 mg Q4H PRN IV PUSH 10/04/17 16:45 (Ativan Inj) 1 mg Q6H PRN IV PUSH 10/04/17 16:45 Sodium Chloride 1,000 ml @ 100 mls/hr Q10H IV 10/04/17 18:07 10/05/17 17:45 (Lovenox Inj) 40 mg Q24H SQ 10/05/17 19:00 10/14/17 19:01 10/05/17 17:37 ([place] 5-325 Mg) 1 tab Q4H PRN PO 10/04/17 18:15 ([place] 5-325 Mg) 2 tab Q4H PRN PO 10/04/17 18:15 (Theragran M Tab) 1 tab BID PO 10/05/17 21:00 12/04/17 20:59 (Zofran Inj) 4 mg Q6H PRN IVP 10/04/17 18:15 (Colace) 100 mg BID PO 10/05/17 21:00 (Mag-Al Plus Susp Liq) 30 ml Q6H PRN PO 10/04/17 18:15 (Ambien) 5 mg HS PRN PO 10/04/17 18:15 (Dulcolax Supp) 10 mg DAILY PRN RECTAL 10/04/17 18:15 (Milk Of Magnesia Liq) 30 ml DAILY PRN PO 10/04/17 18:15 (Narcan Inj) 0.4 mg UNSCH PRN IV PUSH 10/04/17 18:15 (Benadryl Inj) 25 mg Q6H PRN IV PUSH 10/04/17 18:15 (Morphine Inj) 2 mg Q3H PRN IV PUSH 10/04/17 18:15 10/05/17 18:32 Pharmacy Profile Note 0 ml @ 0 mls/hr UNSCH OTHER 10/04/17 18:15 Vancomycin HCl 1500 mg/Sodium Chloride 515 ml @ 257.5 mls/ hr Q12H IV 10/05/17 10:00 10/05/17 10:15 ([facility] Or[facility] Lab Info) SPECIFIC LAB TO BE DRAWN:VANCO TROUGH DATE TO BE DRHarley. ONCE ONCE .XX 10/06/17 09:45 10/06/17 09:46 ([facility]) ALL NURSING DEPARTME... UNSCH PRN .XX 10/04/17 20:05 10/05/17 20:04 Family History Reviewed and noncontributory to current infectious disease problem. Social History - former smoker - denies alcohol - denies illicit street drugs Physical Exam Vital Signs Vital Signs Date Time Temp Pulse Resp B/P (MAP) Pulse Ox O2 Delivery O2 Flow Rate FiO2 10/05/17 16:00 97.9 112 17 148/76 (100) 96 10/05/17 15:57 Nasal Cannula 3.00 10/05/17 12:00 98.6 116 17 144/70 (94) 95 10/05/17 08:00 99.3 106 17 178/85 (116) 97 10/05/17 04:00 98.6 95 18 123/75 (91) 97 10/05/17 02:18 Nasal Cannula 3.00 10/05/17 00:00 98.6 98 18 125/72 (89) 95 10/04/17 22:45 95 10/04/17 20:50 98.8 99 18 121/75 (90) 96 10/04/17 20:30 98.6 100 19 131/80 (97) 98 Nasal Cannula 2 10/04/17 20:15 102 19 131/83 (99) 98 Nasal Cannula 2 10/04/17 20:02 98.6 109 19 139/94 (109) 99 Nasal Cannula 2 Physical Exam GENERAL: This is a well-nourished, well-developed patient, in no apparent distress. SKIN: No rashes, ecchymoses or lesions. Cool and dry. HEAD: Atraumatic. Normocephalic. No temporal or scalp tenderness. EYES: Pupils equal round and reactive. Extraocular motions intact. No scleral icterus. No injection or drainage. ENT: Nose without bleeding, purulent drainage or septal hematoma. Throat without erythema, tonsillar hypertrophy or exudate. Uvula midline. Airway patent. NECK: Trachea midline. Supple, nontender, no meningeal signs. CARDIOVASCULAR: Regular rate and rhythm without murmurs, gallops, or rubs. RESPIRATORY: Clear to auscultation. Breath sounds equal bilaterally. No wheezes , rales, or rhonchi. GASTROINTESTINAL: Abdomen soft, non-tender, nondistended. No hepato-splenomegaly , or palpable masses. No guarding. MUSCULOSKELETAL: Left hip surgical site covered. Drain with sanguinous discharge noted. NEUROLOGICAL: Awake and alert. Cranial nerves II through XII intact. Motor and sensory grossly within normal limits. Five out of 5 muscle strength in all muscle groups. Normal speech. PICC line site with no evidence of infection. Laboratory Laboratory Tests Test 10/05/17 05:01 White Blood Count 2.7 Red Blood Count 3.65 Hemoglobin 10.0 Hematocrit 30.1 Mean Corpuscular Volume 82.4 Mean Corpuscular Hemoglobin 27.3 Mean Corpuscular Hemoglobin Concent 33.1 Red Cell Distribution Width 13.4 Platelet Count 285 Mean Platelet Volume 6.2 Neutrophils (%) (Auto) 20.1 Lymphocytes (%) (Auto) 35.5 Monocytes (%) (Auto) 37.7 Eosinophils (%) (Auto) 6.0 Basophils (%) (Auto) 0.7 Neutrophils # (Auto) 0.5 Lymphocytes # (Auto) 1.0 Monocytes # (Auto) 1.0 Eosinophils # (Auto) 0.2 Basophils # (Auto) 0.0 CBC Comment AUTO DIFF Differential Total Cells Counted 100 Neutrophils % (Manual) 15 Band Neutrophils % 1 Lymphocytes % 46 Monocytes % 25 Eosinophils % 12 Basophils % 1 Neutrophils # (Manual) 0.4 Differential Comment FINAL DIFF MANUAL Platelet Estimate NORMAL Platelet Morphology Comment NORMAL Red Cell Morphology Comment NORMAL Blood Urea Nitrogen 7 Creatinine 0.69 Random Glucose 87 Calcium Level 8.8 Sodium Level 136 Potassium Level 3.9 Chloride Level 100 Carbon Dioxide Level 27.0 Anion Gap 9 Estimat Glomerular Filtration Rate 117 Date/Time Source Procedure Growth Status 10/04/17 19:25 Wound Hip Fungal Smear Pending Received 10/04/17 19:25 Wound Hip Fungal Culture Pending Received Result Diagram: 10/05/17 0501 10/05/17 0501 Imaging Last Impressions Chest X-Ray 10/04/17 1630 Signed Impressions: CONCLUSION: Right PICC line in superior vena cava. No active disease. Hip X-Ray 10/04/17 0000 Signed Impressions: CONCLUSION: Left hip antibiotic prosthesis. Hip MRI 10/04/17 0000 Signed Impressions: CONCLUSION: 1. Abnormal marrow edema and enhancement involving the acetabulum and proximal left femoral shaft with surrounding muscular and subcutaneous edematous change and fluid collection tracking from the lateral thigh musculature to the cutane ous surface. Findings are most characteristic of the reported history of osteom yelitis. 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 ? drug induced neutropenia Anemia Elevated CRP Recommendations: DC Vanco IV (neutropenia ? drug induced) Start Daptomycin IV (ASP: Neutropenia ? Vanco induced) Follow CBC with diff and check ANC. Consider Hematology consult if not improving for ? Neupogen and evaluation check HIV antibody screen check hepatitis profile. Follow intraoperative cultures Blood culture from periphery as well as PICC line Follow clinically Discussed with Dr. Rene yesterday Discussed with RN as well as patient. Dr. Ashford to resume care on [place], October 07, 2017. If any change in clinical condition or positive cultures in the interim please call me sooner Annemarie Hall MD Oct 05, 2017 18:51
[2017-10-05] MEDS: MULTIVITAMINS/MINERALS THERAPEUTIC TAB PO SCH (20:09)
[2017-10-05] MEDS: DOCUSATE SODIUM 100 MG CAP PO SCH (20:09)
[2017-10-05] MEDS: DAPTOmycin INJ 900 MG in SODIUM CHLORIDE 0.9% INJ 100 ML IV SCH (21:00)
[2017-10-05] MEDS: ZOLPIDEM TARTRATE 5 MG TAB PO PRN (23:49)
[2017-10-06] VITALS (7 sets, daily range): BP systolic 117–135; BP diastolic 57–74; PULSE 95–109; RESP 16–20; TEMP 97.8–99.2; O2SAT 94–98
[2017-10-06] MEDS: ACETAMINOPHEN/HYDROcodone 325 MG/10 MG TAB PO PRN ×2 (01:40→06:29)
[2017-10-06] MEDS: MORPHINE SULFATE 4 MG/ML INJ IV PUSH PRN ×5 (02:37→20:21)
[2017-10-06 04:56] LABS: AUTOMATED NEUTROPHIL # 1.6 TH/MM3 (1.8-7.7); BASOPHIL % 0.7 % (0.0-2.0); EOSINOPHIL # 0.1 TH/MM3 (0-0.4); HEMATOCRIT 31.5 % (39.0-51.0); HEMOGLOBIN 10.6 GM/DL (13.0-17.0); LYMPH % 26.2 % (9.0-44.0); LYMPHOCYTE # 1.1 TH/MM3 (1.0-4.8); MEAN CELL VOLUME 82.1 FL (80.0-100.0); MEAN CORPUSCULAR HEMOGLOBIN 27.6 PG (27.0-34.0); MEAN CORPUSCULAR HGB CONC 33.6 % (32.0-36.0); MEAN PLATELET VOLUME 6.6 FL (7.0-11.0); MONO % 31.5 % (0.0-8.0); MONOCYTE # 1.3 TH/MM3 (0-0.9); NEUT % 38.6 % (16.0-70.0); PLATELET COUNT 309 TH/MM3 (150-450); RED BLOOD COUNT 3.84 MIL/MM3 (4.50-5.90); RED CELL DISTRIBUTION WIDTH 13.5 % (11.6-17.2); WHITE BLOOD COUNT 4.3 TH/MM3 (4.0-11.0)
[2017-10-06 05:09] LABS: BICARBONATE 27.6 MEQ/L (21.0-32.0); CREATININE 0.58 MG/DL (0.60-1.30)
[2017-10-06] MEDS: DOCUSATE SODIUM 50 MG/SENNA 8.6 MG TAB PO SCH ×2 (08:21→20:21)
[2017-10-06] MEDS: MULTIVITAMINS/MINERALS THERAPEUTIC TAB PO SCH ×2 (08:21→20:21)
[2017-10-06] MEDS: SODIUM CHLORIDE 0.9% FLUSH 10 ML FLUSH IV FLUSH SCH ×2 (08:21→20:21)
[2017-10-06] MEDS: DOCUSATE SODIUM 100 MG CAP PO SCH ×2 (08:21→20:20)
--- NOTE | 2017-10-06 08:43 | HHI.PR ---
Subjective Remarks Patient reports feeling much better today, after surgery and Daptomycin yesterday Offers no new complaints at this time Objective Vitals Vital Signs Date Time Temp Pulse Resp B/P (MAP) Pulse Ox O2 Delivery O2 Flow Rate FiO2 10/06/17 04:00 98.6 101 17 135/69 (91) 98 10/06/17 00:00 98.5 102 17 132/67 (88) 94 10/05/17 21:41 95 Nasal Cannula 3.00 10/05/17 20:04 105 10/05/17 20:00 98.3 107 17 130/60 (83) 95 10/05/17 16:00 97.9 112 17 148/76 (100) 96 10/05/17 15:57 Nasal Cannula 3.00 10/05/17 12:00 98.6 116 17 144/70 (94) 95 Result Diagram: 10/06/17 0440 10/06/17 0440 Other Results Laboratory Tests Test 10/04/17 12:20 10/05/17 05:01 10/05/17 20:00 10/06/17 04:40 White Blood Count 3.1 TH/MM3 2.7 TH/MM3 4.3 TH/MM3 Red Blood Count 4.18 MIL/MM3 3.65 MIL/MM3 3.84 MIL/MM3 Hemoglobin 11.6 GM/DL 10.0 GM/DL 10.6 GM/DL Hematocrit 34.7 % 30.1 % 31.5 % Mean Corpuscular Volume 83.1 FL 82.4 FL 82.1 FL Mean Corpuscular Hemoglobin 27.7 PG 27.3 PG 27.6 PG Mean Corpuscular Hemoglobin Concent 33.3 % 33.1 % 33.6 % Red Cell Distribution Width 13.3 % 13.4 % 13.5 % Platelet Count 335 TH/MM3 285 TH/MM3 309 TH/MM3 Mean Platelet Volume 6.5 FL 6.2 FL 6.6 FL Neutrophils (%) (Auto) 10.9 % 20.1 % 38.6 % Lymphocytes (%) (Auto) 38.3 % 35.5 % 26.2 % Monocytes (%) (Auto) 45.2 % 37.7 % 31.5 % Eosinophils (%) (Auto) 5.1 % 6.0 % 3.0 % Basophils (%) (Auto) 0.5 % 0.7 % 0.7 % Neutrophils # (Auto) 0.3 TH/MM3 0.5 TH/MM3 1.6 TH/MM3 Lymphocytes # (Auto) 1.2 TH/MM3 1.0 TH/MM3 1.1 TH/MM3 Monocytes # (Auto) 1.4 TH/MM3 1.0 TH/MM3 1.3 TH/MM3 Eosinophils # (Auto) 0.2 TH/MM3 0.2 TH/MM3 0.1 TH/MM3 Basophils # (Auto) 0.0 TH/MM3 0.0 TH/MM3 0.0 TH/MM3 CBC Comment AUTO DIFF AUTO DIFF DIFF FINAL Differential Total Cells Counted 100 100 Neutrophils % (Manual) 16 % 15 % Band Neutrophils % 4 % 1 % Lymphocytes % 41 % 46 % Monocytes % 32 % 25 % Eosinophils % 5 % 12 % Basophils % 2 % 1 % Neutrophils # (Manual) 0.6 TH/MM3 0.4 TH/MM3 Differential Comment FINAL DIFF MANUAL FINAL DIFF MANUAL Platelet Estimate NORMAL NORMAL Platelet Morphology Comment NORMAL NORMAL Erythrocyte Sedimentation Rate 83 mm/hr Blood Urea Nitrogen 7 MG/DL 7 MG/DL 7 MG/DL Creatinine 0.75 MG/DL 0.69 MG/DL 0.58 MG/DL Random Glucose 81 MG/DL 87 MG/DL 97 MG/DL Total Protein 7.7 GM/DL Albumin 3.2 GM/DL Calcium Level 9.0 MG/DL 8.8 MG/DL 9.0 MG/DL Alkaline Phosphatase 172 U/L Aspartate Amino Transf (AST/SGOT) 10 U/L Alanine Aminotransferase (ALT/SGPT) 25 U/L Total Bilirubin 0.5 MG/DL Sodium Level 140 MEQ/L 136 MEQ/L 135 MEQ/L Potassium Level 3.8 MEQ/L 3.9 MEQ/L 3.6 MEQ/L Chloride Level 103 MEQ/L 100 MEQ/L 99 MEQ/L Carbon Dioxide Level 27.0 MEQ/L 27.0 MEQ/L 27.6 MEQ/L Anion Gap 10 MEQ/L 9 MEQ/L 8 MEQ/L Estimat Glomerular Filtration Rate 107 ML/MIN 117 ML/MIN 143 ML/MIN C-Reactive Protein 12.00 MG/DL Red Cell Morphology Comment NORMAL Hepatitis A IgM Antibody NONREACTIVE Hepatitis B Surface Antigen NONREACTIVE Hepatitis B Core IgM Antibody NONREACTIVE Hepatitis C IgG Antibody REACTIVE HIV (1&2) Ab and P24 Ag, 4th Gener NONREACTIVE Imaging Last Impressions Chest X-Ray 10/04/17 1630 Signed Impressions: CONCLUSION: Right PICC line in superior vena cava. No active disease. Hip X-Ray 10/04/17 0000 Signed Impressions: CONCLUSION: Left hip antibiotic prosthesis. Hip MRI 10/04/17 0000 Signed Impressions: CONCLUSION: 1. Abnormal marrow edema and enhancement involving the acetabulum and proximal left femoral shaft with surrounding muscular and subcutaneous edematous change and fluid collection tracking from the lateral thigh musculature to the cutane ous surface. Findings are most characteristic of the reported history of osteom yelitis. Objective Remarks GENERAL: This is a well-nourished, well-developed patient, in no apparent distress. SKIN: Post op dressing left hip dry and intact LANIE drain in place draining serosanguineous fluid CARDIOVASCULAR: Regular rate and rhythm RESPIRATORY: Clear to auscultation. Breath sounds equal bilaterally. GASTROINTESTINAL: Abdomen soft, non-tender, nondistended. Normal active bowel sounds MUSCULOSKELETAL: Extremities without clubbing, cyanosis, or edema. NEURO: Alert & Oriented x4 to person, place, time, situation. Moves all ext x4 Procedures Left hip arthrotomy with irrigation and debridement with placement of antibiotic beads 10/04/[address] 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 Procedure performed by orthopedist, Dr. Adis Tavares. Patient discharged to SNF 08/03/17. Hospitalization 09/0509/10/17 Patient readmitted with infection of hip prosthesis. On 09/05/17 patient underwent hardware removal with placement of antibiotic spacer by Dr. Adis Tavares. Readmission 10/04/17 Prior to admission pt was receiving IV Vancomycin and PO Rifampin with stop date of 10/22/17 under the direction of Dr. Ibrahim. Pt at [facility], but frequently absent from the facility. Patient readmitted to [facility] 10/04/2017 Patient complained of swelling, pain, and redness at left hip. MRI of left hip (10/04/17) showed fluid collection possible osteomyelitis. - Patient was taken to the OR by Dr. Aubrey Torres on 10/05/17 and underwent left hip arthrotomy with irrigation and debridement. - Patient also underwent placement of antibiotic beads with 2 g of vancomycin - Pt will likely require further surgical revision. - Follow intraoperative cultures - Infectious Disease also following, patient on Daptomycin per ID - IV Vancomyin stopped due to concerns for vanco induced neutropenia - Pain control norco/dilaudid - DVT prophylaxis with SCDs - supportive care (2) Anxiety ICD Codes: F41.9 - Anxiety disorder, unspecified Status: Chronic Plan: - ativan prn Assessment and Plan Patient examined. Assessment and plan formulated with Marah Avitia PA-C. I agree with the above. s/p left kerrie. abscess/prosthetic hip infection with mrsa s/p hardware removal and abx spacer and beads. sent to snf with vanco. dose adjusted and ?missed doses. now back with apparent osteo change in acetabulum and more inflammatory changes requiring a return OR trip over the weekend for irrrigation and cx's sent. dapto per ID. await cx's. pt refusing snf and wants [facility]/pt this time. Problem Qualifiers (1) Infection of prosthetic total hip joint: Qualified Codes: T84.59XD - Infection and inflammatory reaction due to other internal joint prosthesis, subsequent encounter; Z96.649 - Presence of unspecified artificial hip joint Marah Avitia Oct 06, 2017 08:43 Boni Izquierdo MD Oct 06, 2017 13:55
[2017-10-06] MEDS ORDERED: PHARMACY ORDERED LAB ONE (09:45)
[2017-10-06] MEDS: SODIUM CHLOR 0.9% 1000 ML INJ 1,000 ML IV SCH ×2 (10:25→23:08)
[2017-10-06] MEDS: ACETAMINOPHEN/HYDROcodone 325 MG/5 MG TAB PO PRN ×4 (10:44→23:06)
--- NOTE | 2017-10-06 12:52 | PD.ORT.PN ---
Subjective Post Op Day #: 2 Subjective Remarks Patient is resting comfortably in bed and states last night his hip started feeling better and that today he feels the best he has felt over the past couple weeks. Patient states he is able to move the LLE now with minimal pain. Objective Vitals Vital Signs Date Time Temp Pulse Resp B/P (MAP) Pulse Ox O2 Delivery O2 Flow Rate FiO2 10/06/17 09:29 96 Nasal Cannula 3.00 10/06/17 04:00 98.6 101 17 135/69 (91) 98 10/06/17 00:00 98.5 102 17 132/67 (88) 94 10/05/17 21:41 95 Nasal Cannula 3.00 10/05/17 20:04 105 10/05/17 20:00 98.3 107 17 130/60 (83) 95 10/05/17 16:00 97.9 112 17 148/76 (100) 96 10/05/17 15:57 Nasal Cannula 3.00 I/O 10/05/17 10/05/17 10/05/17 10/06/17 10/06/17 10/06/17 07:00 15:00 23:00 07:00 15:00 23:00 Intake Total 1620 ml 2100 ml 740 ml Output Total 2040 ml 1435 ml 1670 ml Balance -420 ml 665 ml -930 ml Intake Oral 1000 ml 2000 ml 240 ml IV Total 620 ml 100 ml 500 ml Output Urine Total 2000 ml 1375 ml 1600 ml Drainage Total 40 ml 60 ml 70 ml # Bowel Movements 0 0 0 Result Diagram: 10/06/17 0440 10/06/17 0440 Imaging Last 24 hours Impressions Chest X-Ray 10/04/17 1630 Signed Impressions: CONCLUSION: Right PICC line in superior vena cava. No active disease. Procedures Left hip arthrotomy with irrigation and debridement with placement of antibiotic beads Objective Remarks Dressings are C/D/I. EHL/TA/G intact. 2+ pedal pulse. Drain is intact and draining a moderate amount of serosanguineous drainage. Calf is soft and nontender. SILT distally. Drain output last night (12 hours) 70 cc Drain output last 6 hours is 50 cc Current intraoperative cultures show no growth. Assessment & Plan Ortho Post Op Day #: 2 Problem List: Assessment and Plan POD #2: Left hip arthrotomy with irrigation and debridement with placement of antibiotic beads 1. TTWB LLE 2. Lovenox followed by ASA for DVT prophylaxis 3. Ice to the left hip PRN 4. Follow intraoperative cultures. No growth as of today. 5. Will likely require ID management of ABX. 6. Will follow orthopaedically. Care will be transferred to [place] next week. Patient will probably require staged surgery, and may need further wash outs. 7. Maintain drain until minimal output. Will consider removal of drain POD #3 along with first dressing change. Daily dressing changes thereafter. Regino Solis Oct 06, 2017 12:52
[2017-10-06] MEDS: ENOXAPARIN SODIUM 40 MG/0.4 ML SYRINGE SQ SCH (18:25)
[2017-10-06] MEDS: DAPTOmycin INJ 900 MG in SODIUM CHLORIDE 0.9% INJ 100 ML IV SCH (20:20)
[2017-10-06] MEDS: ZOLPIDEM TARTRATE 5 MG TAB PO PRN (23:20)
[2017-10-07] VITALS (8 sets, daily range): BP systolic 129–148; BP diastolic 63–72; PULSE 86–96; RESP 16–20; TEMP 97.9–98.8; O2SAT 95–100
[2017-10-07] MEDS: MORPHINE SULFATE 4 MG/ML INJ IV PUSH PRN ×6 (02:31→22:51)
[2017-10-07 05:10] LABS: HEMATOCRIT 27.9 % (39.0-51.0); HEMOGLOBIN 9.3 GM/DL (13.0-17.0); MEAN CELL VOLUME 81.8 FL (80.0-100.0); MEAN CORPUSCULAR HEMOGLOBIN 27.3 PG (27.0-34.0); MEAN CORPUSCULAR HGB CONC 33.4 % (32.0-36.0); MEAN PLATELET VOLUME 6.7 FL (7.0-11.0); PLATELET COUNT 323 TH/MM3 (150-450); RED BLOOD COUNT 3.41 MIL/MM3 (4.50-5.90); RED CELL DISTRIBUTION WIDTH 13.1 % (11.6-17.2); WHITE BLOOD COUNT 4.7 TH/MM3 (4.0-11.0)
[2017-10-07] MEDS: SODIUM CHLOR 0.9% 1000 ML INJ 1,000 ML IV SCH ×2 (06:07→15:14)
[2017-10-07] MEDS: DOCUSATE SODIUM 50 MG/SENNA 8.6 MG TAB PO SCH ×2 (07:56→20:21)
[2017-10-07] MEDS: DOCUSATE SODIUM 100 MG CAP PO SCH ×2 (07:56→20:20)
[2017-10-07] MEDS: MULTIVITAMINS/MINERALS THERAPEUTIC TAB PO SCH ×2 (07:56→20:21)
[2017-10-07] MEDS: SODIUM CHLORIDE 0.9% FLUSH 10 ML FLUSH IV FLUSH SCH ×2 (07:57→20:20)
[2017-10-07] MEDS: ACETAMINOPHEN/HYDROcodone 325 MG/5 MG TAB PO PRN (07:57)
--- NOTE | 2017-10-07 10:14 | HHI.PR ---
Subjective Remarks Patient sitting up in chair, with at bedside Patient reports feeling well, better than he has felt in a week Offers no new concerns/complaints Objective Vitals Vital Signs Date Time Temp Pulse Resp B/P (MAP) Pulse Ox O2 Delivery O2 Flow Rate FiO2 10/07/17 08:00 97.9 91 16 129/ 98 10/07/17 04:00 98.2 86 18 148/72 (97) 98 10/07/17 00:00 98.1 91 18 143/67 (92) 96 10/06/17 20:17 21 10/06/17 20:00 99.2 102 20 127/74 (91) 94 10/06/17 16:00 98.0 95 18 117/57 (77) 96 10/06/17 12:00 97.8 109 18 118/61 (80) 98 Result Diagram: 10/07/17 0420 10/06/17 0440 Other Results Laboratory Tests Test 10/04/17 12:20 10/05/17 05:01 10/05/17 20:00 10/06/17 04:40 White Blood Count 3.1 TH/MM3 2.7 TH/MM3 4.3 TH/MM3 Red Blood Count 4.18 MIL/MM3 3.65 MIL/MM3 3.84 MIL/MM3 Hemoglobin 11.6 GM/DL 10.0 GM/DL 10.6 GM/DL Hematocrit 34.7 % 30.1 % 31.5 % Mean Corpuscular Volume 83.1 FL 82.4 FL 82.1 FL Mean Corpuscular Hemoglobin 27.7 PG 27.3 PG 27.6 PG Mean Corpuscular Hemoglobin Concent 33.3 % 33.1 % 33.6 % Red Cell Distribution Width 13.3 % 13.4 % 13.5 % Platelet Count 335 TH/MM3 285 TH/MM3 309 TH/MM3 Mean Platelet Volume 6.5 FL 6.2 FL 6.6 FL Neutrophils (%) (Auto) 10.9 % 20.1 % 38.6 % Lymphocytes (%) (Auto) 38.3 % 35.5 % 26.2 % Monocytes (%) (Auto) 45.2 % 37.7 % 31.5 % Eosinophils (%) (Auto) 5.1 % 6.0 % 3.0 % Basophils (%) (Auto) 0.5 % 0.7 % 0.7 % Neutrophils # (Auto) 0.3 TH/MM3 0.5 TH/MM3 1.6 TH/MM3 Lymphocytes # (Auto) 1.2 TH/MM3 1.0 TH/MM3 1.1 TH/MM3 Monocytes # (Auto) 1.4 TH/MM3 1.0 TH/MM3 1.3 TH/MM3 Eosinophils # (Auto) 0.2 TH/MM3 0.2 TH/MM3 0.1 TH/MM3 Basophils # (Auto) 0.0 TH/MM3 0.0 TH/MM3 0.0 TH/MM3 CBC Comment AUTO DIFF AUTO DIFF DIFF FINAL Differential Total Cells Counted 100 100 Neutrophils % (Manual) 16 % 15 % Band Neutrophils % 4 % 1 % Lymphocytes % 41 % 46 % Monocytes % 32 % 25 % Eosinophils % 5 % 12 % Basophils % 2 % 1 % Neutrophils # (Manual) 0.6 TH/MM3 0.4 TH/MM3 Differential Comment FINAL DIFF MANUAL FINAL DIFF MANUAL Platelet Estimate NORMAL NORMAL Platelet Morphology Comment NORMAL NORMAL Erythrocyte Sedimentation Rate 83 mm/hr Blood Urea Nitrogen 7 MG/DL 7 MG/DL 7 MG/DL Creatinine 0.75 MG/DL 0.69 MG/DL 0.58 MG/DL Random Glucose 81 MG/DL 87 MG/DL 97 MG/DL Total Protein 7.7 GM/DL Albumin 3.2 GM/DL Calcium Level 9.0 MG/DL 8.8 MG/DL 9.0 MG/DL Alkaline Phosphatase 172 U/L Aspartate Amino Transf (AST/SGOT) 10 U/L Alanine Aminotransferase (ALT/SGPT) 25 U/L Total Bilirubin 0.5 MG/DL Sodium Level 140 MEQ/L 136 MEQ/L 135 MEQ/L Potassium Level 3.8 MEQ/L 3.9 MEQ/L 3.6 MEQ/L Chloride Level 103 MEQ/L 100 MEQ/L 99 MEQ/L Carbon Dioxide Level 27.0 MEQ/L 27.0 MEQ/L 27.6 MEQ/L Anion Gap 10 MEQ/L 9 MEQ/L 8 MEQ/L Estimat Glomerular Filtration Rate 107 ML/MIN 117 ML/MIN 143 ML/MIN C-Reactive Protein 12.00 MG/DL Red Cell Morphology Comment NORMAL Hepatitis A IgM Antibody NONREACTIVE Hepatitis B Surface Antigen NONREACTIVE Hepatitis B Core IgM Antibody NONREACTIVE Hepatitis C IgG Antibody REACTIVE HIV (1&2) Ab and P24 Ag, 4th Gener NONREACTIVE Test 10/07/17 04:20 White Blood Count 4.7 TH/MM3 Red Blood Count 3.41 MIL/MM3 Hemoglobin 9.3 GM/DL Hematocrit 27.9 % Mean Corpuscular Volume 81.8 FL Mean Corpuscular Hemoglobin 27.3 PG Mean Corpuscular Hemoglobin Concent 33.4 % Red Cell Distribution Width 13.1 % Platelet Count 323 TH/MM3 Mean Platelet Volume 6.7 FL Total Creatine Kinase 40 U/L Imaging Last Impressions Chest X-Ray 10/04/17 1630 Signed Impressions: CONCLUSION: Right PICC line in superior vena cava. No active disease. Hip X-Ray 10/04/17 0000 Signed Impressions: CONCLUSION: Left hip antibiotic prosthesis. Hip MRI 10/04/17 0000 Signed Impressions: CONCLUSION: 1. Abnormal marrow edema and enhancement involving the acetabulum and proximal left femoral shaft with surrounding muscular and subcutaneous edematous change and fluid collection tracking from the lateral thigh musculature to the cutane ous surface. Findings are most characteristic of the reported history of osteom yelitis. Objective Remarks GENERAL: This is a well-nourished, well-developed patient, in no apparent distress. SKIN: Post op dressing left hip dry and intact LANIE drain in place draining serosanguineous fluid CARDIOVASCULAR: Regular rate and rhythm RESPIRATORY: Clear to auscultation. Breath sounds equal bilaterally. GASTROINTESTINAL: Abdomen soft, non-tender, nondistended. Normal active bowel sounds MUSCULOSKELETAL: Extremities without clubbing, cyanosis, or edema. NEURO: Alert & Oriented x4 to person, place, time, situation. Moves all ext x4 Procedures Left hip arthrotomy with irrigation and debridement with placement of antibiotic beads 10/04/[address] 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 Procedure performed by orthopedist, Dr. Adis Tavares. Patient discharged to SNF 08/03/17. Hospitalization 09/0509/10/17 Patient readmitted with infection of hip prosthesis. On 09/05/17 patient underwent hardware removal with placement of antibiotic spacer by Dr. Adis Tavares. Readmission 10/04/17 Prior to admission pt was receiving IV Vancomycin and PO Rifampin with stop date of 10/22/17 under the direction of Dr. Ibrahim. Pt at [facility], but frequently absent from the facility. Patient readmitted to [place] 10/04/2017 Patient complained of swelling, pain, and redness at left hip. MRI of left hip (10/04/17) showed fluid collection possible osteomyelitis. - Patient was taken to the OR by Dr. Aubrey Torres on 10/05/17 and underwent left hip arthrotomy with irrigation and debridement. - Patient also underwent placement of antibiotic beads with 2 g of vancomycin - Pt will likely require further surgical revision. - Follow intraoperative cultures - Infectious Disease also following, patient on Daptomycin per ID - IV Vancomycin stopped due to concerns for vanco induced neutropenia - Pain control norco/Morphine - DVT prophylaxis with Lovenox - supportive care (2) Anxiety ICD Codes: F41.9 - Anxiety disorder, unspecified Status: Chronic Plan: - ativan prn Assessment and Plan Patient examined. Assessment and plan formulated with Marah Avitia PA-C. I agree with the above. infection of left kerrie mrsa. s/p abx spacer/beads with subsequent return to OR for washout and cx's. cont dapto and follow cx's. 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
--- NOTE | 2017-10-07 10:16 | HHI.IDPN ---
Subjective Subjective Remarks Mr. Orozco is a 61-year-old male with past medical history significant for left hip arthroplasty by anterior approach by Dr. 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 Subsequently [facility], [facility]. Thereafter patient was readmitted with infection of the left hip prosthesis between September 05 - September 10, 2017. On September 05, 2017 patient underwent hardware removal with placement of antibiotic spacer by Dr. Tavares. Patient was seen by Dr. Margi Ashford of infectious disease and was discharged on IV vancomycin as well as p.o. rifampin with a stop date of October. Patient was seen in follow-up with Dr. Winters of infectious disease as outpatient. Dr. Rene was is the attending during this admission is also his supervising physician at [facility]. Reportedly patient is gone for entire day from the facility and this occurred on multiple occasions. With this background patient was readmitted to [place] on October 04, 2017 complaining of swelling pain and redness of his left hip. An MRI of the left hip was done on October 04, 2017 which showed fluid collection possible osteomyelitis. Patient was evaluated by Dr. Aubrey Banda and taken to the OR on October 05, 2017. Patient underwent irrigation debridement as well as placement of vancomycin beads. Intraoperative cultures are pending. Blood cultures have been ordered. Infectious disease is consulted for evaluation and management of left hip prosthetic joint infection. Notes reviewed [facility] He states that the only time he missed vanco doses was when the facility did not have the medicine His Vanco dose was decreased to once a day about one week before admission Readmitted with recurrent infection S/P repeat debridement and placement of Abx beads Intraop C/S negative so far No fever or chills No rash or itching No GI or complaints Antibiotics Daptomycin Current Medications Medications (Trade) Dose Ordered Sig/Kaveh Route Start Time Stop Time Status Last Admin (NS Flush) 2 ml UNSCH PRN IV FLUSH 10/04/17 16:30 (NS Flush) 2 ml BID IV FLUSH 10/04/17 21:00 10/07/17 07:57 (Tylenol) 650 mg Q4H PRN PO 10/04/17 16:30 (Restoril) 15 mg HS PRN PO 10/04/17 16:30 (Mitra-Colace) 1 tab BID PO 10/04/17 21:00 10/07/17 07:56 (Milk Of Magnesia Liq) 30 ml Q12H PRN PO 10/04/17 16:30 ([place] 10-325 Mg) 1 tab Q4H PRN PO 10/04/17 16:45 10/06/17 06:29 (Ativan Inj) 1 mg Q6H PRN IV PUSH 10/04/17 16:45 Sodium Chloride 1,000 ml @ 100 mls/hr Q10H IV 10/04/17 18:07 10/06/17 23:08 (Lovenox Inj) 40 mg Q24H SQ 10/05/17 19:00 10/14/17 19:01 10/06/17 18:25 ([place] 5-325 Mg) 1 tab Q4H PRN PO 10/04/17 18:15 10/07/17 03:39 (Theragran M Tab) 1 tab BID PO 10/05/17 21:00 12/04/17 20:59 10/07/17 07:56 (Zofran Inj) 4 mg Q6H PRN IVP 10/04/17 18:15 (Colace) 100 mg BID PO 10/05/17 21:00 10/07/17 07:56 (Mag-Al Plus Susp Liq) 30 ml Q6H PRN PO 10/04/17 18:15 (Ambien) 5 mg HS PRN PO 10/04/17 18:15 10/06/17 23:20 (Dulcolax Supp) 10 mg DAILY PRN RECTAL 10/04/17 18:15 (Milk Of Magnesia Liq) 30 ml DAILY PRN PO 10/04/17 18:15 (Narcan Inj) 0.4 mg UNSCH PRN IV PUSH 10/04/17 18:15 (Benadryl Inj) 25 mg Q6H PRN IV PUSH 10/04/17 18:15 Daptomycin 900 mg/ Sodium Chloride 100 ml @ 200 mls/hr Q24H IV 10/05/17 21:00 10/06/17 20:20 (Morphine Inj) 2 mg Q4HR PRN IV PUSH 10/07/17 09:30 Lines PICC RUE Past Medical History Chronic pain Avascular necrosis of the left hip Arthritis Past Surgical History Back surgery L4-L5 Appendectomy Left total hip arthroplasty July 2017 Allergies: Coded Allergies: No Known Allergies (Unverified Allergy, Unknown, 10/04/17) Objective . Vital Signs Date Time Temp Pulse Resp B/P (MAP) Pulse Ox O2 Delivery O2 Flow Rate FiO2 10/07/17 08:00 97.9 91 16 129/ 98 10/07/17 04:00 98.2 86 18 148/72 (97) 98 10/07/17 00:00 98.1 91 18 143/67 (92) 96 10/06/17 20:17 21 10/06/17 20:00 99.2 102 20 127/74 (91) 94 10/06/17 16:00 98.0 95 18 117/57 (77) 96 10/06/17 12:00 97.8 109 18 118/61 (80) 98 . Laboratory Tests Test 10/06/17 04:40 10/07/17 04:20 White Blood Count 4.3 TH/MM3 4.7 TH/MM3 Red Blood Count 3.84 MIL/MM3 3.41 MIL/MM3 Hemoglobin 10.6 GM/DL 9.3 GM/DL Hematocrit 31.5 % 27.9 % Mean Corpuscular Volume 82.1 FL 81.8 FL Mean Corpuscular Hemoglobin 27.6 PG 27.3 PG Mean Corpuscular Hemoglobin Concent 33.6 % 33.4 % Red Cell Distribution Width 13.5 % 13.1 % Platelet Count 309 TH/MM3 323 TH/MM3 Mean Platelet Volume 6.6 FL 6.7 FL Neutrophils (%) (Auto) 38.6 % Lymphocytes (%) (Auto) 26.2 % Monocytes (%) (Auto) 31.5 % Eosinophils (%) (Auto) 3.0 % Basophils (%) (Auto) 0.7 % Neutrophils # (Auto) 1.6 TH/MM3 Lymphocytes # (Auto) 1.1 TH/MM3 Monocytes # (Auto) 1.3 TH/MM3 Eosinophils # (Auto) 0.1 TH/MM3 Basophils # (Auto) 0.0 TH/MM3 CBC Comment DIFF FINAL Differential Comment Laboratory Tests Test 10/06/17 04:40 10/07/17 04:20 Blood Urea Nitrogen 7 MG/DL Creatinine 0.58 MG/DL Random Glucose 97 MG/DL Calcium Level 9.0 MG/DL Sodium Level 135 MEQ/L Potassium Level 3.6 MEQ/L Chloride Level 99 MEQ/L Carbon Dioxide Level 27.6 MEQ/L Anion Gap 8 MEQ/L Estimat Glomerular Filtration Rate 143 ML/MIN Total Creatine Kinase 40 U/L Microbiology Date/Time Source Procedure Growth Status 10/05/17 20:00 Blood Line Aerobic Blood Culture - Preliminary NO GROWTH IN 1 DAY Resulted 10/05/17 20:00 Blood Line Anaerobic Blood Culture - Preliminary NO GROWTH IN 1 DAY Resulted 10/05/17 19:40 Blood Peripheral Aerobic Blood Culture - Preliminary NO GROWTH IN 1 DAY Resulted 10/05/17 19:40 Blood Peripheral Anaerobic Blood Culture - Preliminary NO GROWTH IN 1 DAY Resulted 10/05/17 19:30 Blood Peripheral Aerobic Blood Culture - Preliminary NO GROWTH IN 1 DAY Resulted 10/05/17 19:30 Blood Peripheral Anaerobic Blood Culture - Preliminary NO GROWTH IN 1 DAY Resulted 10/04/17 19:25 Wound Hip Fungal Smear - Final NO FUNGAL ELEMENTS SEEN. Resulted 10/04/17 19:25 Wound Hip Fungal Culture Pending Resulted 10/04/17 19:25 Wound Hip Acid Fast Stain Pending Received 10/04/17 19:25 Wound Hip Mycobacterial Culture Pending Received 10/04/17 19:25 Wound Hip Gram Stain - Final Resulted 10/04/17 19:25 Wound Hip Wound Culture - Preliminary NO GROWTH IN 24 HOURS. Resulted 10/04/17 19:25 Wound Hip Fungal Smear - Final Resulted 10/04/17 19:25 Wound Hip Fungal Culture Pending Resulted Physical Exam GENERAL: This is a well-nourished, well-developed patient, NAD SKIN: No rashes, ecchymoses or lesions. Cool and dry. HEAD: Atraumatic. Normocephalic. No temporal or scalp tenderness. EYES: Pupils equal round and reactive. Extraocular motions intact. No scleral icterus. No injection or drainage. ENT: Nose without bleeding, purulent drainage or septal hematoma. Throat without erythema, tonsillar hypertrophy or exudate. Uvula midline. Airway patent. NECK: Trachea midline. Supple, nontender, no meningeal signs. CARDIOVASCULAR: Regular rate and rhythm without murmurs, gallops, or rubs. RESPIRATORY: Clear to auscultation. Breath sounds equal bilaterally. No wheezes , rales, or rhonchi. GASTROINTESTINAL: Abdomen soft, non-tender, nondistended. No hepato-splenomegaly , or palpable masses. No guarding. MUSCULOSKELETAL: Left hip surgical site covered, dery and intact. Drain with sanguinous discharge noted. NEUROLOGICAL: Awake and alert. Cranial nerves II through XII intact. Motor and sensory grossly within normal limits. Five out of 5 muscle strength in all muscle groups. Normal speech. PICC line site with no evidence of infection. Assessment & Plan Remarks Left prosthetic joint infection appears to be recurrent - he missed 3 doses of Vancomycin, and ?the last Vanco trough was quite low Right arm PICC in place. ? drug induced neutropenia, likely from vancomycin - numbers improving Anemia Elevated CRP Hep C (+) Recommendations: Continue Daptomycin IV (ASP: Neutropenia ? Vanco induced) - follow CPK Follow CBC with diff and check ANC. Follow intraoperative cultures Blood culture from periphery as well as PICC line Monitor progress Explained plan to patient and and answered all their question Margi Ashford MD Oct 07, 2017 10:16
[2017-10-07] MEDS: ACETAMINOPHEN/HYDROcodone 325 MG/10 MG TAB PO PRN ×3 (11:59→20:29)
--- NOTE | 2017-10-07 17:28 | PD.ORT.PN ---
Subjective Subjective Remarks Left hip feels better. Objective Vitals Vital Signs Date Time Temp Pulse Resp B/P (MAP) Pulse Ox O2 Delivery O2 Flow Rate FiO2 10/07/17 16:00 98.7 96 18 146/64 (91) 100 10/07/17 12:00 98.3 96 20 134/63 (86) 98 10/07/17 11:54 95 21 10/07/17 08:00 97.9 91 16 129/ 98 10/07/17 04:00 98.2 86 18 148/72 (97) 98 10/07/17 00:00 98.1 91 18 143/67 (92) 96 10/06/17 20:17 21 10/06/17 20:00 99.2 102 20 127/74 (91) 94 I/O 10/06/17 10/06/17 10/06/17 10/07/17 10/07/17 10/07/17 07:00 15:00 23:00 07:00 15:00 23:00 Intake Total 740 ml 740 ml 100 ml Output Total 1670 ml 900 ml 400 ml 10 ml Balance -930 ml -160 ml -300 ml -10 ml Intake Oral 240 ml 740 ml IV Total 500 ml 100 ml Output Urine Total 1600 ml 850 ml 400 ml Drainage Total 70 ml 50 ml 10 ml # Bowel Movements 0 1 Result Diagram: 10/07/17 0420 10/06/17 0440 Imaging Last 24 hours Impressions Chest X-Ray 10/04/17 1630 Signed Impressions: CONCLUSION: Right PICC line in superior vena cava. No active disease. Procedures Left hip arthrotomy with irrigation and debridement with placement of antibiotic beads Objective Remarks The left hip dressing was changed by the nurse. There is no drainage noted on the new dressing.. EHL/TA/G intact. 2+ pedal pulse. The drain has been taken out. There is moderate swelling about the left hip. No erythema surrounding the bandage. Current intraoperative cultures show no growth. Assessment & Plan Assessment and Plan POD #3: Left hip arthrotomy with irrigation and debridement with placement of antibiotic beads 1. TTWB LLE 2. Lovenox followed by ASA for DVT prophylaxis 3. Ice to the left hip PRN 4. Follow intraoperative cultures. No growth as of today. 5. Infectious disease consultation appreciated. They are managing antibiotics. 6. Will follow orthopaedically. Care will be transferred to [place] next week. Definitive care will be discussed with Dr. Tavares once he returns. 7. Daily dressing changes. 8. Patient would prefer to be discharged home with home health and nursing rather than go back to a snf facility. Aubrey Banda MD Oct 07, 2017 17:28
[2017-10-07] MEDS: ENOXAPARIN SODIUM 40 MG/0.4 ML SYRINGE SQ SCH (18:31)
[2017-10-07] MEDS: DAPTOmycin INJ 900 MG in SODIUM CHLORIDE 0.9% INJ 100 ML IV SCH (20:20)
[2017-10-07] MEDS: SODIUM CHLORIDE 0.9% FLUSH 10 ML FLUSH IV FLUSH PRN (22:51)
[2017-10-08] VITALS: BP 131/74; PULSE 89; RESP 18; TEMP 98.1; O2SAT 95
[2017-10-08] MEDS: ZOLPIDEM TARTRATE 5 MG TAB PO PRN (00:34)
[2017-10-08] MEDS: ACETAMINOPHEN/HYDROcodone 325 MG/10 MG TAB PO PRN ×6 (00:35→20:42)
[2017-10-08] MEDS: SODIUM CHLOR 0.9% 1000 ML INJ 1,000 ML IV SCH ×3 (00:37→22:07)
[2017-10-08 04:00] VITALS: BP 142/71; PULSE 90; RESP 18; TEMP 98; O2SAT 95
[2017-10-08] MEDS: MORPHINE SULFATE 4 MG/ML INJ IV PUSH PRN ×5 (05:19→21:38)
--- NOTE | 2017-10-08 07:37 | PD.ORT.PN ---
Subjective Subjective Remarks POD 4 s/p repeat I&D and abx bead placement left hip doing well. improving. Objective Vitals Vital Signs Date Time Temp Pulse Resp B/P (MAP) Pulse Ox O2 Delivery O2 Flow Rate FiO2 10/08/17 04:00 98.0 90 18 142/71 (94) 95 10/08/17 00:00 98.1 89 18 131/74 (93) 95 10/07/17 20:34 100 10/07/17 20:00 98.8 94 18 130/65 (86) 97 10/07/17 16:00 98.7 96 18 146/64 (91) 100 10/07/17 12:00 98.3 96 20 134/63 (86) 98 10/07/17 11:54 95 21 10/07/17 08:00 97.9 91 16 129/ 98 I/O 10/07/17 10/07/17 10/07/17 10/08/17 10/08/17 10/08/17 07:00 15:00 23:00 07:00 15:00 23:00 Intake Total 100 ml 2600 ml Output Total 400 ml 10 ml 950 ml Balance -300 ml 2590 ml -950 ml Intake Oral 2600 ml IV Total 100 ml Output Urine Total 400 ml 950 ml Drainage Total 10 ml # Voids 3 # Bowel Movements 1 1 Result Diagram: 10/07/17 0420 10/06/17 0440 Imaging Last 24 hours Impressions Chest X-Ray 10/04/17 1630 Signed Impressions: CONCLUSION: Right PICC line in superior vena cava. No active disease. Procedures Left hip arthrotomy with irrigation and debridement with placement of antibiotic beads Objective Remarks The left hip dressing was changed by the nurse. There is no drainage noted on the new dressing.. EHL/TA/G intact. 2+ pedal pulse. The drain has been taken out. There is moderate swelling about the left hip. No erythema surrounding the bandage. Current intraoperative cultures show no growth. Assessment & Plan Assessment and Plan POD #4: Left hip arthrotomy with irrigation and debridement with placement of antibiotic beads by Dr Banda 1. TTWB LLE 2. Lovenox followed by ASA for DVT prophylaxis 3. Ice to the left hip PRN 4. Follow intraoperative cultures. No growth as of today. 5. Infectious disease consultation appreciated. They are managing antibiotics. need to arrange home IV Abx on outpatient basis 6. Will follow orthopaedically. Care will be transferred to [place] next week. Definitive care will be discussed with Dr. Tavares once he returns. 7. Daily dressing changes. 8. Patient would prefer to be discharged home with home health and nursing rather than go back to a long-term facility. will plan for DC home with [facility] once IV Abx arrange on outpatient basis 9. follow up with Dr Tavares in 2 weeks Harsh Silva/Director Center PA Oct 08, 2017 07:37
--- NOTE | 2017-10-08 07:37 | HHI.FF ---
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 My clinical findings support the need for the requested home health care services because: Ltd mobility - disease progression I certify that my clinical findings support that this patient is homebound because: Post-op weakness Harsh Silva/Powertrain Engineer PA Oct 08, 2017 07:37
[2017-10-08 08:00] VITALS: BP 127/71; PULSE 82; PULSE 87; RESP 18; TEMP 98.2; O2SAT 96
[2017-10-08] MEDS: DOCUSATE SODIUM 100 MG CAP PO SCH ×2 (08:18→21:00)
[2017-10-08] MEDS: MULTIVITAMINS/MINERALS THERAPEUTIC TAB PO SCH ×2 (08:18→21:00)
[2017-10-08] MEDS: DOCUSATE SODIUM 50 MG/SENNA 8.6 MG TAB PO SCH ×2 (08:18→21:00)
[2017-10-08] MEDS: SODIUM CHLORIDE 0.9% FLUSH 10 ML FLUSH IV FLUSH SCH ×2 (09:55→21:37)
--- NOTE | 2017-10-08 11:16 | HHI.PR ---
Objective Vitals Vital Signs Date Time Temp Pulse Resp B/P (MAP) Pulse Ox O2 Delivery O2 Flow Rate FiO2 10/08/17 09:08 21 10/08/17 08:00 82 10/08/17 08:00 98.2 87 18 127/71 (89) 96 10/08/17 04:00 98.0 90 18 142/71 (94) 95 10/08/17 00:00 98.1 89 18 131/74 (93) 95 10/07/17 20:34 100 10/07/17 20:00 98.8 94 18 130/65 (86) 97 10/07/17 16:00 98.7 96 18 146/64 (91) 100 10/07/17 12:00 98.3 96 20 134/63 (86) 98 10/07/17 11:54 95 21 Result Diagram: 10/07/17 0420 10/06/17 0440 Other Results Laboratory Tests Test 10/07/17 04:20 White Blood Count 4.7 TH/MM3 Red Blood Count 3.41 MIL/MM3 Hemoglobin 9.3 GM/DL Hematocrit 27.9 % Mean Corpuscular Volume 81.8 FL Mean Corpuscular Hemoglobin 27.3 PG Mean Corpuscular Hemoglobin Concent 33.4 % Red Cell Distribution Width 13.1 % Platelet Count 323 TH/MM3 Mean Platelet Volume 6.7 FL Total Creatine Kinase 40 U/L Imaging Last Impressions Chest X-Ray 10/04/17 1630 Signed Impressions: CONCLUSION: Right PICC line in superior vena cava. No active disease. Hip X-Ray 10/04/17 0000 Signed Impressions: CONCLUSION: Left hip antibiotic prosthesis. Hip MRI 10/04/17 0000 Signed Impressions: CONCLUSION: 1. Abnormal marrow edema and enhancement involving the acetabulum and proximal left femoral shaft with surrounding muscular and subcutaneous edematous change and fluid collection tracking from the lateral thigh musculature to the cutane ous surface. Findings are most characteristic of the reported history of osteom yelitis. Objective Remarks GENERAL: This is a well-nourished, well-developed patient, in no apparent distress. SKIN: Post op dressing left hip dry and intact LANIE drain in place draining serosanguineous fluid CARDIO: Regular RESP: CTA bilaterally. ABD: +BS, soft, non-tender, nondistended. EXT: No edema. Procedures Left hip arthrotomy with irrigation and debridement with placement of antibiotic beads 10/04/[address] 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 Procedure performed by orthopedist, Dr. Adis Tavares. Patient discharged to [facility] 08/03/17. Hospitalization 09/05--09/10/17 - Patient readmitted with infection of hip prosthesis on 09/05/17 patient underwent hardware removal with placement of antibiotic spacer by Dr. Adis Tavares. Readmission 10/04/17 - Prior to admission pt was receiving IV Vancomycin and PO Rifampin with stop date of 10/22/17 under the direction of Dr. Ibrahim. Pt at [facility], but frequently absent from the facility. Patient readmitted to [facility] 10/04/2017. Patient complained of swelling, pain, and redness at left hip. - MRI of left hip (10/04/17) showed fluid collection possible osteomyelitis. - Patient was taken to the OR by Dr. Aubrey Banda on 10/05/17 and underwent left hip arthrotomy with irrigation and debridement with placement of antibiotic beads with 2 g of vancomycin - Pt will likely require further surgical revision. - Intraoperative cultures with no growth in 72 hours - Infectious Disease also following - IV Vancomycin stopped due to concerns for vanco induced neutropenia - Patient on Daptomycin per ID - Blood cultures from periphery and PICC line on 10/06 with no growth x 3 days - Pain control norco/Morphine - DVT prophylaxis with Lovenox - supportive care (2) Anxiety ICD Codes: F41.9 - Anxiety disorder, unspecified Status: Chronic Plan: - Ativan prn Problem Qualifiers (1) Infection of prosthetic total hip joint: Qualified Codes: T84.59XD - Infection and inflammatory reaction due to other internal joint prosthesis, subsequent encounter; Z96.649 - Presence of unspecified artificial hip joint Patricia Sosa Oct 08, 2017 11:16
[2017-10-08 12:00] VITALS: BP 134/66; PULSE 97; RESP 18; TEMP 98.4; O2SAT 95
--- NOTE | 2017-10-08 12:57 | HHI.FF ---
cc: Fadi Ibrahim MD Copy to Dr Ibrahim Infusion Therapy Location of Infusion Therapy: Home Health Care IV Infusion Order Patient Information Patient Weight 87.6 kg Diagnosis: Diagnosis MRSA infection L hip Coded Allergies: No Known Allergies (Unverified Allergy, Unknown, 10/04/17) Administer Medication Cubicin 900 mg IV daily Stop Treatment: Nov 18, 2017 Additional Information Venous access: PICC Line Additional Instructions [x] Peripheral flush and dressing changes per protocol [x] Implanted port and central laborer pipelines: * Implanted port: 10 ml Normal Saline followed by 5 ml Heparin 100 units/ml Heparin flush after each use and monthly to maintain. [] May leave port accessed during therapy. [] May leave peripheral site accessed for duration of therapy. [x] If patient has SOB or respiratory distress, check oxygen saturation. If less than 90% or clinical signs of respiratory distress, administer oxygen at 2 L/min. via nasal cannula and notify physician. [x] Anaphylaxis/Reaction orders: * Stop infusion. * Keep IV line open with saline flush. * Notify physician. * Monitor vital signs every 15 minutes until symptoms resolve. * Check Oxygen saturation; Oxygen at 2 L/min. via nasal cannula if less than 90% or clinical signs of respiratory distress. * Administer diphenhydramine (Benadryl) 25 mg IV STAT, (unless patient has received as pre-med). May repeat once, if necessary. * Solu-Cortef 250 mg IVP over 30-60 seconds, use 100 mg vials for each dissolution. * Epinephrine (1mg/1 ml) 0.3 mg subcutaneously or IVP now with any signs of respiratory distress. * Check with physician for new additional pre-med orders if patient is re- challenged or re-treated. [x] Remove PICC line when treatment completed Nov 18, 2017 [x] If the patient is admitted to the hospital, the ED, or transferred via [facility] , complete transfer form including medication reconciliation order sheet. Laboratory Tests Weekly Labs: CBC w/diff, Creatinine, Serum CK Levels (Labs every Friday, copy to ne and Dr Ibrahim) Margi Ashford MD Oct 08, 2017 12:57
[2017-10-08] MEDS ORDERED: DAPT500P IV (12:58)
--- NOTE | 2017-10-08 13:41 | HHI.DS ---
Discharge Summary Admission Date Oct 04, 2017 at 16:33 Discharge Date: Oct 08, 2017 Admitting Diagnosis osteomyelitis (1) Infection of prosthetic total hip joint Diagnosis: Principal ICD Codes: T84.59XA - Infection and inflammatory reaction due to other internal joint prosthesis, initial encounter; Z96.649 - Presence of unspecified artificial hip joint (2) Anxiety Diagnosis: Secondary ICD Codes: F41.9 - Anxiety disorder, unspecified Status: Chronic Consultants Dr. Adis Tavares - Orthopedic Surgery Procedures Left hip arthrotomy with irrigation and debridement with placement of antibiotic beads 10/04/[address] Banda Brief History Unable to see pt 10/04 as pt was in the OR. 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 Procedure performed by orthopedist, Dr. Adis Tavares. Patient discharged to SNF 08/03/17. Hospitalization 09/0509/10/17 Patient readmitted with infection of hip prosthesis. On 09/05/17 patient underwent hardware removal with placement of antibiotic spacer by Dr. Adis Tavares. Readmission 10/04/17 Prior to admission pt was receiving IV Vancomycin and PO Rifampin with stop date of 10/22/17 under the direction of Dr. Ibrahim. Pt at [facility], but frequently absent from the facility. I came to [facility] to reasses pt on Friday , October 01, 2017, but pt gone for the day from the Facility. Patient readmitted to [facility] 10/04/2017 Patient complained of swelling, pain, and redness at left hip. MRI of left hip (10/04/17) showed fluid collection possible osteomyelitis. Patient was taken to the OR by Dr. Aubrey Torres on 10/05/17 and underwent left hip arthrotomy with irrigation and debridement. Patient also underwent placement of antibiotic beads with 2 g of vancomycin. Patient will likely need further surgical revision. Patient will be seen by his usual orthopedic surgeon Dr. Adis Tavares on Friday. Will follow intraoperative cultures. Await input from infectious disease. CBC/BMP: 10/07/17 0420 10/06/17 0440 Significant Findings Laboratory Tests Test 10/05/17 20:00 10/06/17 04:40 10/07/17 04:20 Hepatitis C IgG Antibody REACTIVE (NONREACTIVE) Red Blood Count 3.84 MIL/MM3 (4.50-5.90) 3.41 MIL/MM3 (4.50-5.90) Hemoglobin 10.6 GM/DL (13.0-17.0) 9.3 GM/DL (13.0-17.0) Hematocrit 31.5 % (39.0-51.0) 27.9 % (39.0-51.0) Mean Platelet Volume 6.6 FL (7.0-11.0) 6.7 FL (7.0-11.0) Monocytes (%) (Auto) 31.5 % (0.0-8.0) Neutrophils # (Auto) 1.6 TH/MM3 (1.8-7.7) Monocytes # (Auto) 1.3 TH/MM3 (0-0.9) Creatinine 0.58 MG/DL (0.60-1.30) Sodium Level 135 MEQ/L (136-145) Imaging Last Impressions Chest X-Ray 10/04/17 1630 Signed Impressions: CONCLUSION: Right PICC line in superior vena cava. No active disease. Hip X-Ray 10/04/17 0000 Signed Impressions: CONCLUSION: Left hip antibiotic prosthesis. Hip MRI 10/04/17 0000 Signed Impressions: CONCLUSION: 1. Abnormal marrow edema and enhancement involving the acetabulum and proximal left femoral shaft with surrounding muscular and subcutaneous edematous change and fluid collection tracking from the lateral thigh musculature to the cutane ous surface. Findings are most characteristic of the reported history of osteom yelitis. PE at Discharge GENERAL: This is a well-nourished, well-developed patient, in no apparent distress. SKIN: Post op dressing left hip dry and intact LANIE drain in place draining serosanguineous fluid CARDIO: Regular RESP: CTA bilaterally. ABD: +BS, soft, non-tender, nondistended. EXT: No edema. 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 Procedure performed by orthopedist, Dr. Adis Tavares. Patient discharged to SNF 08/03/17. Previous Hospitalization 09/05--09/10/17 - Patient readmitted with infection of hip prosthesis on 09/05/17 patient underwent hardware removal with placement of antibiotic spacer by Dr. Adis Tavares. Readmission 10/04/17 - Prior to admission pt was receiving IV Vancomycin and PO Rifampin with stop date of 10/22/17 under the direction of Dr. Ibrahim. Pt at [facility], but frequently absent from the facility. Patient readmitted to [facility] 10/04/2017. Patient complained of swelling, pain, and redness at left hip. MRI of left hip ( 10/04/17) showed fluid collection possible osteomyelitis. Patient was taken to the OR by Dr. Aubrey Banda on 10/05/17 and underwent left hip arthrotomy with irrigation and debridement with placement of antibiotic beads with 2 g of vancomycin. Pt will likely require further surgical revision. Intraoperative cultures with no growth in 72 hours. Infectious Disease also following. IV Vancomycin stopped due to concerns for vanco induced neutropenia. Blood cultures from periphery and PICC line on 10/06 with no growth x 3 days. Patient on Daptomycin per ID and is recommended to continue Cubicin 900 mg IV daily through Nov 18, 2017. Pt has been cleared for discharge by Ortho on 10/08. Pain control norco PRN DVT prophylaxis with Lovenox x 10 more days then continue ASA after Lovenox is completed, prescriptions ordered by Ortho at discharge. Pt is to followup with Dr. Tavares in 2 weeks Pt is to followup with Dr. Mukherjee in 1 week We will arrange for HHC/PT upon discharge and pt will have weekly labs including , CBC w/diff, Creatinine, Serum CK Levels every Friday, copy to Dr. Ashford and Dr Ibrahim. Anxiety - Pt will be continued on his home Valium prn at discharge. Pt Condition on Discharge: Stable Discharge Disposition: Disch w/ Home Health Serv Discharge Instructions DIET: Follow Instructions for: Heart Healthy Diet Activities you can perform: Toe Touch Weight Bearing Other Activity Instructions: TTWB LLE Follow up Referrals: Orthopedics - 2 Weeks @ [facility] with Adis Tavares MD PCP Follow-up - [address] Mukherjee New Medications: Aspirin (Aspirin) 325 Mg Tab 325 MG PO DAILY for Prevent Blood Clot, #30 TAB 0 Refills Start Aspirin after Lovenox is completed. Daptomycin Inj (Cubicin Inj) 500 Mg Bag 900 MG IV Q24H for Infection for 42 Days, #42 BAG 0 Refills Must dilute in appropriate IV Fluid prior to administration Enoxaparin Inj (Enoxaparin Inj) 40 Mg/0.4 Ml Syr 40 MG SQ DAILY for Blood Clot Prevention for 10 Days, SYRINGE 0 Refills Start Aspirin after Lovenox is completed. Hydrocodone-Acetaminophen ([place]) 5 Mg-325 Mg Tab 1-2 TAB PO Q4H PRN for PAIN, #50 TAB 0 Refills Continued Medications: Diazepam (Valium) 5 Mg Tab 5 MG PO DIRECTED, TAB 0 Refills Zolpidem (Ambien) 10 Mg Tab 10 MG PO HS PRN for INSOMNIA, TAB 0 Refills Discontinued Medications: Cyclobenzaprine (Flexeril) 5 Mg Tab 5 MG PO BID for Muscle Spasm, #28 TAB 0 Refills Hydrocodone-Acetaminophen ([place]) 10-325 Mg Tab 1 TAB PO Q4H PRN for PAIN, #40 TAB 0 Refills Patricia Sosa Oct 08, 2017 13:41 Boni Izquierdo MD Oct 08, 2017 13:55
[2017-10-08] MEDS: ENOXAPARIN SODIUM 40 MG/0.4 ML SYRINGE SQ SCH (16:24)
[2017-10-08] MEDS: DAPTOmycin INJ 900 MG in SODIUM CHLORIDE 0.9% INJ 100 ML IV SCH (16:24)
[2017-10-08 20:00] VITALS: BP 124/62; PULSE 87; RESP 18; TEMP 98.1; O2SAT 96
[2017-10-09] VITALS: BP 126/66; PULSE 92; RESP 18; TEMP 98.5; O2SAT 98
[2017-10-09] MEDS: ACETAMINOPHEN/HYDROcodone 325 MG/10 MG TAB PO PRN ×4 (00:31→13:24)
[2017-10-09] MEDS: MORPHINE SULFATE 4 MG/ML INJ IV PUSH PRN ×2 (01:54→05:50)
[2017-10-09] MEDS: SODIUM CHLORIDE 0.9% FLUSH 10 ML FLUSH IV FLUSH PRN (01:54)
[2017-10-09 08:00] VITALS: BP 130/67; PULSE 94; RESP 18; TEMP 96.7; O2SAT 100
[2017-10-09] MEDS: SODIUM CHLOR 0.9% 1000 ML INJ 1,000 ML IV SCH (08:07)
--- NOTE | 2017-10-09 08:34 | PD.ORT.PN ---
Subjective Subjective Remarks POD 5 s/p repeat I&D and abx bead placement left hip doing well. improving. set for discharge home with IV Abx today Objective Vitals Vital Signs Date Time Temp Pulse Resp B/P (MAP) Pulse Ox O2 Delivery O2 Flow Rate FiO2 10/09/17 00:00 98.5 92 18 126/66 (86) 98 10/08/17 20:00 98.1 87 18 124/62 (82) 96 10/08/17 12:00 98.4 97 18 134/66 (88) 95 10/08/17 09:08 21 I/O 10/08/17 10/08/17 10/08/17 10/09/17 10/09/17 10/09/17 06:59 14:59 22:59 06:59 14:59 22:59 Intake Total 100 ml 2600 ml 0 ml Output Total 950 ml Balance -850 ml 2600 ml 0 ml Intake Oral 2600 ml 0 ml IV Total 100 ml Output Urine Total 950 ml # Voids 6 2 # Bowel Movements 1 1 0 Result Diagram: 10/07/17 0420 10/06/17 0440 Imaging Last 24 hours Impressions Chest X-Ray 10/04/17 1630 Signed Impressions: CONCLUSION: Right PICC line in superior vena cava. No active disease. Procedures Left hip arthrotomy with irrigation and debridement with placement of antibiotic beads Objective Remarks The left hip dressing was changed by the nurse. There is no drainage noted on the new dressing.. EHL/TA/G intact. 2+ pedal pulse. The drain has been taken out. There is moderate swelling about the left hip. No erythema surrounding the bandage. Current intraoperative cultures show no growth. Assessment & Plan Assessment and Plan POD #5: Left hip arthrotomy with irrigation and debridement with placement of antibiotic beads by Dr Banda 1. TTWB LLE 2. Lovenox followed by ASA for DVT prophylaxis 3. Ice to the left hip PRN 4. Follow intraoperative cultures. No growth as of today. 5. Infectious disease consultation appreciated. They are managing antibiotics. need to arrange home IV Abx on outpatient basis 6. Will follow orthopaedically. Care will be transferred to [facility] next week. Definitive care will be discussed with Dr. Tavares once he returns. 7. Daily dressing changes. 8. Patient would prefer to be discharged home with home health and nursing rather than go back to a senior care facility. will plan for DC home with HHC once IV Abx arrange on outpatient basis. DC home today 9. follow up with Dr Tavares in 2 weeks Harsh Silva/First Kirsten FRAGOSO Oct 09, 2017 08:34
[2017-10-09] MEDS: MULTIVITAMINS/MINERALS THERAPEUTIC TAB PO SCH (09:18)
[2017-10-09] MEDS: SODIUM CHLORIDE 0.9% FLUSH 10 ML FLUSH IV FLUSH SCH (09:19)
[2017-10-09] MEDS: DOCUSATE SODIUM 100 MG CAP PO SCH (09:20)
[2017-10-09] MEDS: DOCUSATE SODIUM 50 MG/SENNA 8.6 MG TAB PO SCH (09:20)
[2017-10-09] MEDS: DAPTOmycin INJ 900 MG in SODIUM CHLORIDE 0.9% INJ 100 ML IV SCH (11:33)
[2017-10-09 12:00] VITALS: BP 148/72; PULSE 99; RESP 19; TEMP 98.6; O2SAT 98
== END 2017-10-09 13:31 | disposition home health service (06) | DRG 481 ==
LOC: NEPD 11:32 → NEDA 16:33 → N07B 20:40
PROVIDERS: ADMIT Hospitalist; ATTEND Hospitalist
PROC: 3E0U029 Introduction of Other Anti-infective into Joints, Open Approach (ICD-10-PCS; 2017-10-04)
PROC: 0SBB0ZZ Excision of Left Hip Joint, Open Approach (ICD-10-PCS; principal; 2017-10-04 18:04)
DX: T84.52XA Infection and inflammatory reaction due to internal left hip prosthesis, initial encounter (principal); M86.9 Osteomyelitis, unspecified; D70.2 Other drug-induced agranulocytosis; D64.9 Anemia, unspecified; R79.82 Elevated C-reactive protein (CRP); B19.20 Unspecified viral hepatitis C without hepatic coma; F41.9 Anxiety disorder, unspecified; Y83.1 Surgical operation with implant of artificial internal device as the cause of abnormal reaction of the patient, or of later complication, without mention of misadventure at the time of the procedure; Z87.891 Personal history of nicotine dependence; Z91.14 Patient's other noncompliance with medication regimen
CPT/HCPCS: 71045; 73502; 73723; 80048; 80053; 80074; 82550; 82948; 85007; 85025; 85027; 85652; 86140; 87015; 87040; 87070; 87102; 87116; 87176; 87205; 87206; 87389; 94150; 96365; 96375; 96376; A9579; C1713; G0475; J0690; J0878; J1100; J1650; J1885; J1956; J2250; J2270; J2370; J2405; J3010; J3370; J7030; J7040

== ENCOUNTER 2018-02-05 05:17 | Inpatient (IN) ==
[2018-02-05] MEDS ORDERED: Celecoxib 200 MG Capsule PO ONE (05:40)
[2018-02-05] MEDS ORDERED: Gabapentin 300 MG Capsule PO ONE (05:40)
[2018-02-05] MEDS ORDERED: Dexamethasone Inj 20 MG/5 ML Vial IV.PUSH ONE (05:40)
[2018-02-05] MEDS ORDERED: Famotidine PF Inj 20 MG/2 ML Vial IV.PUSH ONE (05:40)
[2018-02-05] MEDS ORDERED: Chlorhexidine 4% Topical 120 APPLIC/120 ML Bottle TOPICAL SCH (05:45)
[2018-02-05] MEDS ORDERED: Chlorhexidine Gluconate 2% 1 Pack (2 Cloths) TOPICAL ONE (05:53)
[2018-02-05] MEDS ORDERED: Metoprolol Tartrate 25 MG Tablet PO ONE (05:53)
[2018-02-05] MEDS ORDERED: ceFAZolin 2 GM IV; once IV.SIG ONE (06:00)
[2018-02-05] MEDS ORDERED: Vancomycin Inj 1,000 MG in Sodium Chlor 0.9% Inj 250 ML IV.SIG SCH (06:00)
[2018-02-05] MEDS ORDERED: Sodium Chlor 0.9% Inj 500 ML IV.SIG SCH (06:00)
[2018-02-05] MEDS ORDERED: fentaNYL Citrate Inj 100 MCG/2 ML Ampul ONE ×2 (06:22→08:06)
[2018-02-05] MEDS ORDERED: fentaNYL Citrate Inj 250 MCG/5 ML Ampul ONE ×2 (06:22→08:58)
[2018-02-05] MEDS ORDERED: Famotidine PF Inj 20 MG/2 ML Vial ONE (06:23)
[2018-02-05 06:28] LABS: Baso % (Auto) 0.3 % (0.0-2.0); Eos # (Auto) 0.1 th/mm3 (0.0-0.4); Eos % (Auto) 1.9 % (0.0-4.0); Hematocrit 39.4 % (39.0-51.0); Hemoglobin 13.2 gm/dL (13.0-17.0); Lymph # (Auto) 1.7 th/mm3 (1.0-4.8); Lymph % (Auto) 24.3 % (9.0-44.0); Mean Corpuscular HGB Conc 33.4 % (32.0-36.0); Mean Corpuscular Hemoglobin 27.4 pg (27.0-34.0); Mean Corpuscular Volume 82.1 fL (80.0-100.0); Mean Platelet Volume 7.1 fL (7.0-11.0); Mono # (Auto) 0.9 th/mm3 (0.0-0.9); Mono % (Auto) 13.2 % (0.0-8.0); Neut # (Auto) 4.2 th/mm3 (1.8-7.7); Neut % (Auto) 60.3 % (16.0-70.0); Platelet Count 255 th/mm3 (150-450); Red Cell Distribution Width 15.7 % (11.6-17.2)
[2018-02-05] MEDS ORDERED: Tobramycin Sulfate 1,200 MG Vial (for ortho/sterile core) OTHER ONE ×2 (06:29→07:09)
[2018-02-05] MEDS ORDERED: Ketamine Inj 50 MG/5 ML Syringe IV.PUSH ONE (06:37)
[2018-02-05] MEDS ORDERED: Esmolol Bolus Inj 100 MG/10 ML Vial IV.PUSH ONE (06:49)
[2018-02-05] MEDS ORDERED: Lidocaine PF 1% Inj 5 ML Syringe OTHER ONE (06:49)
[2018-02-05] MEDS ORDERED: Phenylephrine/NS 1000 MCG/10ML Syringe IV.PUSH ONE (06:49)
[2018-02-05] MEDS ORDERED: Glycopyrrolate Inj 1 MG/5 ML Syringe IV.PUSH ONE (06:49)
[2018-02-05] MEDS ORDERED: Neostigmine Inj 5 MG/5 ML Syringe IV.PUSH ONE (06:49)
[2018-02-05] MEDS ORDERED: ceFAZolin 2 GM Premix Inj 2 GM/50 ML PIGGYBACK IV.SIG ONE (06:59)
[2018-02-05] MEDS ORDERED: SODIUM CHLOR 0.9% IV.SIG SCH (07:00)
[2018-02-05] MEDS ORDERED: TRANEXAMIC ACID IV.SIG SCH (07:00)
[2018-02-05] MEDS ORDERED: Bupivacaine/Epi PF 0.25% Inj 20 ML, Bupivacaine Liposo PF 1.3% Inj 20 ML, Sodium Chlor ... P-ARTICULR SCH ×2 (07:00)
[2018-02-05] MEDS ORDERED: HYDROmorphone PF Inj 2 MG/ML Vial ONE (08:06)
[2018-02-05] MEDS ORDERED: Morphine Inj 4 MG/ML Vial IV.PUSH PRN (09:49)
[2018-02-05] MEDS ORDERED: Bisacodyl 10 MG Supp RECTAL PRN (09:49)
[2018-02-05] MEDS ORDERED: Promethazine 25 MG Supp RECTAL PRN (09:49)
--- NOTE | 2018-02-05 10:12 | P.OP ---
- Preoperative Diagnosis (1) Unilateral primary osteoarthritis, left hip (2) Left hip prosthetic joint infection Date of procedure: 02/05/18 Procedure: Revision left total hip arthroplasty Anesthesia: GETA Surgeon: Adis Koch MD Pharmacoepidemiologist: JELLY Peng PA-C The surgical procedure was assisted by my physician assistant golf course superintendent. My P.A. presence was necessary throughout this case for the manipulation and positioning of the surgical extremity. My P.A. was assisting me throughout the duration of this procedure. The skill set of a physician assistant golf course superintendent was medically necessary to complete this procedure. During the surgical case the tool rental technician was working at the back table and the physician assistant golf course superintendent was directly assisting me. Pathology: other (Stat frozen section, multiple cultures) Operation and Findings: PLAN OF ACTIVITY Weight bear as tolerated. IMPLANTS USED DePuy revision Corail size [16] collared stem with a size [54] Troy Gription cup, [54/36] Altrx poly liner, and a [+8.5] Biolox ceramic head. DETAILS OF PROCEDURE: This patient has a long history of hip pain. Patient was found to have severe osteoarthritis and he underwent left total hip arthroplasty. Patient developed subsequent infection and had removal of implants and placement of antibiotic spacer. Patient has been treated with IV antibiotics and has been followed by infectious disease. He is sedimentation rate and C-reactive protein labs have returned to normal after being off of antibiotics. I had detailed discussion with patient regarding revision left total hip arthroplasty. The risk and benefits of surgery were discussed in depth with patient. All questions were answered. The patient wished to proceed with surgery and informed consent was obtained. Operative site was marked. I discussed both posterior approach and anterior approach with the patient and decision was made for anterior approach. Patient was brought to OR and placed on OR table. IV sedation and general anesthesia was administered by anesthesiologist. Patient positioned on a Sun table. Antibiotics were held until cultures were obtained. Time-out procedure was performed. The hip and thigh were prepped with alcohol followed by Hibiclens. The thigh was draped in the usual sterile fashion. Clean Air Suite was used for this procedure. The procedure began with a 8-inch incision over the anterolateral thigh. Subcutaneous tissue was dissected with Bovie. There was dense scar tissue around the incision. The fascia over the tensa fasciae latae was incised. Care was taken to avoid injury to the lateral femoral cutaneous nerve. The tensor muscle was retracted laterally. Sartorius was retracted medially. Retractors were now placed. The reflected head of the rectus is now elevated. A capsulotomy was performed over the anterior hip capsule. Sutures were placed to help retract the capsule. At this point the antibiotic spacer was visualized. At this point attention was turned towards removal of the antibiotic spacer. Scar tissue was excised around the spacer. Osteotomes were now used to fracture the antibiotic spacer. The antibiotic spacer head was now removed from the wound. Vice electric trucker were now placed around the metal stem of the temporary total hip prosthesis. Flexible osteotomes were now placed along the interface between the cement and the bone to loosen the prosthesis. The prosthesis is now removed. At this point attention was turned towards debridement. Specimen was obtained and sent to pathology for stat frozen section. The results of this were negative for acute inflammation or infection. Additional soft tissue and bone cultures were obtained for culture. Antibiotics were now given. An excisional debridement was performed of the synovium, soft tissue, and bone. At this point attention was turned to preparation of the acetabulum. The acetabulum was sequentially reamed up to size [54]. A trial cup was now placed. Fluoroscopy was used to aid in identification of appropriate version. At this point the hip was externally rotated. A hook was placed around the proximal femur. The capsule was released off the lateral and medial femur. The hip was now extended and adducted. Retractors were placed around the proximal femur to allow for exposure. Reverse curettes were used to thoroughly debride the femoral canal. The canal was now sequentially reamed with flexible reamers. Next, the canal was sequentially broached up to size [16]. This was found to be an excellent fit. Calcar planer was placed. A 16 revision corail trial stem was now placed. A standard head was placed, and the hip was reduced. The leg was found to be short. A +8.5 head was now placed onto the stem. The hip was again reduced. The hip was found to have excellent stability with good range of motion. The leg lengths were measured under fluoroscopy and found to be equal compared to preoperatively. Trial broach was removed. The trial cup was also removed. The hip was now thoroughly irrigated with sterile saline via pulse lavage. At this point the components were opened. A size 54 cup was fully impacted and found to have excellent fit. Hole eliminator was now placed. The liner was now impacted into the cup. The Corail revision size 16 stem was opened. Stem was fully impacted into the proximal femur in appropriate version. The +8.5 36 mm femoral head was placed. The hip was again reduced. Fluoroscopy confirmed excellent alignment of prosthesis. The wound was thoroughly irrigated. Given his history of infection antibiotic beads were placed around the hip. 10 cc of stimulan cement was mixed with 2 g of vancomycin. Beads were made. Beads were now placed throughout the soft tissue and hip region. Capsule was closed with #1 Vicryl. The fascia over the tensor fasciae muscle was closed with #1 Vicryl, subcutaneous tissue was closed with 3-0 Vicryl and the skin was closed with emelia and Dermabond skin closure. The capsule layers, muscle, and subcutaneous tissue were injected with a mixture of saline and bupivicaine. Dressings were applied. The patient was transferred to Recovery Room in stable condition.
[2018-02-05] MEDS ORDERED: Post-op Orders (for Pharmacy) OTHER STA (10:20)
[2018-02-05] MEDS ORDERED: Tranexamic Acid Inj 1,000 MG in Sodium Chlor 0.9% Inj 100 ML IV.SIG SCH (10:32)
[2018-02-05] MEDS ORDERED: *morphine SULFATE 4 MG/ML PERIprocedure ONLY ONE ×3 (10:33→10:47)
--- NOTE | 2018-02-05 10:34 | P.DCO ---
- Physical Therapy Physical Therapy: Gait training, Safety evaluation Hip: Total hip, Protocol: Left Right Lower Extremity Weight Bearing: Weight bearing as tolerated - Nursing Dressing changes: Daily dressing change (beginning POD#5 with dry dressing of primapore then beginning POD#11 beginn adding xeroform over incision with primapore), Xeroform (beginning POD#11) - Certification Need for Home Health services: I have seen patient Darrel Orozco on 02/05/18. My clinical findings support the need for the requested home health care services because: Need for Home Health Services: Limited mobility due to disease progression Homebound Certification: I certify that my clinical findings support that this patient is homebound because: Homebound Certification: Post-op weakness
[2018-02-05 10:53] LABS: Hematocrit 35.9 % (39.0-51.0); Hemoglobin 11.7 gm/dL (13.0-17.0)
[2018-02-05] MEDS ORDERED: *HYDROmorphone PF Inj 1 MG/ML Ampul PERIprocedural Use ONLY ONE ×3 (10:53→11:28)
--- NOTE | 2018-02-05 13:09 | XR ---
EXAM DATE: 02/05/2018 1:05 PM EDT AGE/SEX: 62 years / Male INDICATIONS: Left total hip arthroplasty. CLINICAL DATA: This is the patient's initial encounter. Patient reports that signs and symptoms have been present for 1 day and indicates a pain score of Nonresponsive. MEDICAL/SURGICAL HISTORY: Non-responsive. Non-responsive. COMPARISON: [facility] [place], MRI HIP LEFT W & W/O CONTRAST, 10/04/2017. . FINDINGS: Left hip arthroplasty in place. Arthroplasty components are in anatomic alignment and well positioned . No acute fracture. CONCLUSION: 1. Left hip arthroplasty in anatomic alignment without fracture. Electronically signed by: Virgil Prieto MD 02/05/2018 1:07 PM EDT
[2018-02-05] MEDS: Vancomycin Inj 1,000 MG in Sodium Chlor 0.9% Inj 250 ML IV.SIG SCH (17:00)
[2018-02-05] MEDS: ceFAZolin Inj 2,000 MG in Sodium Chlor 0.9% Inj 80 ML IV.SIG SCH (18:20)
[2018-02-05] MEDS: Calcium/Vitamin D 250/125 MG Tablet PO SCH ×2 (18:22)
[2018-02-05] MEDS: Celecoxib 200 MG Capsule PO SCH (21:51)
[2018-02-05] MEDS: Senna/Docusate Sodium 8.6/50 MG Tablet PO SCH (21:51)
[2018-02-06] MEDS: ceFAZolin Inj 2,000 MG in Sodium Chlor 0.9% Inj 80 ML IV.SIG SCH ×2 (00:26→08:20)
[2018-02-06] MEDS: oxyCODONE/Acetaminophen 10/325 Tablet PO PRN ×5 (03:44→20:44)
[2018-02-06] MEDS: Vancomycin Inj 1,000 MG in Sodium Chlor 0.9% Inj 250 ML IV.SIG SCH ×2 (04:52→17:14)
[2018-02-06 05:05] LABS: Hematocrit 26.4 % (39.0-51.0); Hemoglobin 9.1 gm/dL (13.0-17.0)
--- NOTE | 2018-02-06 07:52 | P.PNOP ---
Subjective Interval history: Resting comfortably with moderate drainage overnight. Dressings were reinforced and no further drainage noted. Mild swelling surrounding the hip Physical Exam Vital signs: Vital Signs 02/05/18 10:23 02/05/18 10:45 02/05/18 11:00 Temperature 97.6 F Pulse Rate 129 H 124 H 101 H Respiratory Rate 15 15 20 Blood Pressure 156/84 H 161/94 H 141/78 H Pulse Oximetry 98 98 98 02/05/18 11:15 02/05/18 11:30 02/05/18 11:45 Temperature Pulse Rate 99 H 99 H 98 H Respiratory Rate 18 18 17 Blood Pressure 136/82 126/76 133/78 Pulse Oximetry 98 99 95 02/05/18 12:15 02/05/18 12:45 02/05/18 13:15 Temperature Pulse Rate 98 H 98 H 98 H Respiratory Rate 18 17 17 Blood Pressure 116/69 123/72 127/72 Pulse Oximetry 97 98 98 02/05/18 14:00 02/05/18 16:00 02/05/18 19:00 Temperature 98.0 F 97.9 F Pulse Rate 100 H 104 H Respiratory Rate 17 18 18 Blood Pressure 118/78 122/73 Pulse Oximetry 98 97 02/05/18 19:04 02/05/18 20:00 02/06/18 00:00 Temperature 98.4 F 98.2 F Pulse Rate 100 H 104 H Respiratory Rate 18 17 17 Blood Pressure 111/57 L 115/68 Pulse Oximetry 96 95 02/06/18 04:00 Temperature 98.1 F Pulse Rate 104 H Respiratory Rate 17 Blood Pressure 125/64 Pulse Oximetry 97 Intake & Output 02/05/18 02/06/18 02/06/18 18:59 06:59 18:59 Intake Total 3393.98 / 3393.98 1450 / 1450 Output Total 1950 / 1950 2150 / 2150 Balance 1443.98 / 1443.98 -700 / -700 Weight 93.2 kg 93 kg Intake: IV 1513.98 / 1513.98 1450 / 1450 LR 1000 mL Inj 1,000 ML @ 80 1000 / 1000 mls/hr IV.CONT .[id number] [facility] Rx# :[id number] Ofirmev Inj 1,000 mg In 100 ml 100 / 100 @ 400 mls/hr IV.SIG Q12H [facility] Rx #:[id number] LR 1000 mL Inj 1,000 ML @ 30 1000 / 1000 mls/hr IV.SIG .Q24H [facility] Rx#: [id number] Cyklokapron Inj 1,398 MG In NS 113.98 / 113.98 Inj 100 ML @ 200 mls/hr IV.SIG ONCE [facility] Rx#:[id number] Vancomycin Inj 1,000 MG In NS 250 / 250 250 / 250 Inj 250 ML @ 200 mls/hr IV.SIG Q12H [facility] Rx#:[id number] Ancef 2 GM Premix Inj 2 gm In 50 / 50 50 ml @ 0 mls/hr IV.SIG .[facility] Rx#:[id number] Ancef Inj 2,000 MG In NS Inj 80 100 / 100 100 / 100 ML @ 200 mls/hr IV.SIG Q8H [facility] Rx#:[id number] Oral 480 / 480 Anesthesia Amount 1400 / 1400 Output: Urine 1150 / 1150 2150 / 2150 Estimated Blood Loss 800 / 800 Other: # Voids 1 Date of Last Bowel Movement 02/05/18 Narrative: Left lower extremity: Clean reinforce dressings noted. Mild swelling surrounding the hip. Mild tenderness with passive range of motion of the hip. Active dorsiflexion plantar flexion of foot. Good capillary refills and distal pulses. Results - Labs CBC & Chem 7: 02/06/18 04:39 Laboratory Results - last 24 hr 02/05/18 02/06/18 10:30 04:39 Hgb 11.7 L 9.1 L D Hct 35.9 L 26.4 L - Imaging Impressions Hip X-Ray 02/05/18 00:00 CONCLUSION: 1. Left hip arthroplasty in anatomic alignment without fracture. Assessment and Plan - Problem List (1) Status post left hip replacement Code(s): Z96.642 - Presence of left artificial hip joint Status: Acute - Assessment and Plan Left anterior total hip arthroplasty POD 1 status post antibiotic spacer Physical therapy weightbearing as tolerated twice daily Begin changing dressings tomorrow with dry dressings only. We will begin adding Xeroform POD 10 Xarelto daily Incentive spirometry DAT hose and sequentials Follow cultures. We will plan on discharge to home on Friday if doing well with physical therapy and home health care is arranged
[2018-02-06] MEDS: Senna/Docusate Sodium 8.6/50 MG Tablet PO SCH ×2 (08:17→20:46)
[2018-02-06] MEDS: Calcium/Vitamin D 250/125 MG Tablet PO SCH ×3 (08:17→17:16)
[2018-02-06] MEDS: Celecoxib 200 MG Capsule PO SCH ×2 (08:17→20:46)
--- NOTE | 2018-02-06 09:50 | RADONCCONS ---
CONSULTATION REPORT Date: 02/06/2018 Patient Name: Darrel Orozco Date of : 1955 Age: 62 Sex: Male CONSULTATION REPORT REFERRING PHYSICIAN: Adis Koch CC: Adis Koch This consultation has been personally requested in writing by the referring physician to evaluate the possible use of radiation therapy to treat the patient. A copy of this consultation will be forwarded to the referring physician to aid in the medical decision making process. Treatment recommendations will be provided as well. Previous he had a long history of hip pain and had had severe osteoarthritis. DIAGNOSIS: Left hip replacement. Consideration of prevention of heterotopic ossification of bone. VITAL SIGNS: Performed on 02/06/2018 9:00 AM BMI - 28.596 kg/m2 - Weight - 93.0 kg - Height - 180.34 cms - Temperature - 98.0 F - Systolic - 129 mm(hg) - Diastolic - 61 mm(hg) (LOW) - Pulse - 101 /min (HIGH) - Respiration - 18 /min - Pain - 8 - O2 Sat - 98 % - Fatigue - 4 - Fall Risk - yes a fall risk - CHIEF COMPLAINT/HISTORY OF PRESENT ILLNESS: Mr. Orozco with recent left hip revision. History of hip replacement earlier. Concern of infection. Recently replacement and revision. X-ray of pelvis and left hip noted. He is doing well at this time. He is alert oriented. Left hip operative consultation demonstrates no evidence of infection process on frozen section. He denies any prior radiation therapy. He denies lupus or scleroderma. PAST MEDICAL HISTORY: arthritis, Avascular necrosis of the left hip, Chronic Pain, fall risk level 1 - sensorium and coordination int, osteoarthritis (Left hip- revision hip arthroplasty) and Previous Radiation Therapy-No. PAST SURGICAL HISTORY: appendectomy, Back Surgery L4-L5 and Left total hip arthroplasty in 07/2017. MEDICATIONS: Ambien 10 mg (of 10 mg) Tablet Oral PRN Aspirin 81 mg (of 81 mg) Tablet, chewable Oral daily Cyclobenzaprine HCl 5 mg (of 5 mg) Tablet Oral b.i.d. DiazePAM 5 mg (of 5 mg) Tablet Oral t.i.d. Enoxaparin Sodium 40 mg (of 40 mg/0.4mL) Injection daily OxyCODONE HCl 5 mg (of 5 mg) Tablet Oral q 4 hours ALLERGIES:No Known Allergies SOCIAL HISTORY: Last screened on 02/06/2018 - Yes - but has quit. Never drank. Patient indicated use of the following products: cigarettes. REVIEW OF SYSTEMS: ConstitutionalDenies lack of appetite, fatigue, fever, lethargy, malaise, night sweats, rigors / chills and change in weight.Allergic/ImmunologicDenies allergies and adverse reactions. HeadDenies alopecia.EyesDenies blurred vision, double vision, lacrimation, night blindness, visual difficulties and photophobia.ENMTDenies dysphagia, ear pain, epistaxis, esophagitis, problems with hearing, mouth dryness, oral bleeding, otitis, sinusitis, sputum production, stomatitis, altered taste and tinnitus.NeckDenies neck masses, muscle weakness, neck pain, decreased range of motion and swelling of the neck.IntegumentaryDenies alopecia, blistering, bruising, dry skin, facial burning, nail changes, photosensitivity, pruritus, rash and urticaria.BreastsDenies breast masses, nipple discharge, nipple inversion and pain. CardiovascularDenies arrhythmias, chest pain, dyspnea, edema, orthopnea and palpitations. RespiratoryDenies cough, dyspnea, hemoptysis, hiccoughs, pleuritic chest pain and wheezing. GastrointestinalDenies abdominal pain, change in bowel habits, constipation, diarrhea, heartburn / dyspepsia, hematemesis, hematochezia, hemorrhoids, melena / GI bleeding, nausea, pain / cramping, satiety and vomiting.ROS Genitourinary (M)Denies dysuria, frequency, hematuria, impotence, incontinence, nocturia, renal stone disease, retrograde ejaculation, scrotal swelling, urgency and urine color change.MusculoskeletalComplains of bone pain, joint pain, muscle weakness and decreased range of motion. Denies arthritis.NeurologicDenies disorientation, dizziness, abnormal gait, headaches, insomnia, memory loss, motor weakness, sensory problems, paralysis, seizure and stroke.PsychiatricDenies delusions, hallucinations, mood swings, depression and euphoria.EndocrineDenies diabetes, hot flashes, menstrual irregularities and thyroid disease. Hematologic/LymphaticDenies easy bruising and tender or enlarged lymph nodes. PHYSICAL EXAMINATION: KPS 90. Patient immobilized. Weight 120/61. Heart rate 101. Rest 18. Temperature 98. Remedies noted. Alert oriented to follow two-step commands. Comfortable. RADIOLOGY DATA: See above. PATHOLOGY DATA: See above. IMPRESSION/PLAN: Mr. Orozco underwent left hip aesthetic joint revision arthroplasty. We discussed potential risk of heterotopic ossification of bone. We discussed radiation could mitigate that risk. We discussed low risk of severe permanent injury from radiation therapy. We discussed second malignancy injury to the joint space muscle nerve bone. He is agreeable to proceed with treatment. We discussed long-term data favorable for heterotopic ossification of bone prevention. We discussed alternative could be indomethacin 1 g daily for 30 days. Seems to have more talked potential toxicities with that approach. He is agreeable to proceeding with treatment. We will schedule for CT simulation treatment today. We discussed radiotherapy seems to be less useful in the first 24-48 hours Matt Valenzuela MD 02/06/2018 9:49:15 AM This report was verified electronicallyThis report was verified electronically
[2018-02-06] MEDS: Rivaroxaban 10 MG Tablet PO SCH (10:49)
[2018-02-07] MEDS: oxyCODONE/Acetaminophen 10/325 Tablet PO PRN ×6 (00:47→22:06)
[2018-02-07] MEDS: Vancomycin Inj 1,000 MG in Sodium Chlor 0.9% Inj 250 ML IV.SIG SCH (04:42)
[2018-02-07] MEDS: Senna/Docusate Sodium 8.6/50 MG Tablet PO SCH ×2 (08:51→22:07)
[2018-02-07] MEDS: Calcium/Vitamin D 250/125 MG Tablet PO SCH ×3 (08:51→17:06)
[2018-02-07] MEDS: Celecoxib 200 MG Capsule PO SCH ×2 (08:51→22:06)
[2018-02-07] MEDS: Rivaroxaban 10 MG Tablet PO SCH (09:08)
--- NOTE | 2018-02-07 09:52 | P.PNOP ---
Subjective Interval history: Patient awake and alert. He states his pain is well controlled. Patient expresses interest in being discharged home with home health care. Physical Exam Vital signs: Vital Signs 02/06/18 11:55 02/06/18 14:30 02/06/18 16:52 Temperature 99.1 F 98.3 F Pulse Rate 105 H 105 H Respiratory Rate 18 18 18 Blood Pressure 132/59 L 140/67 Pulse Oximetry 97 99 02/06/18 18:37 02/06/18 18:38 02/06/18 20:00 Temperature 98.7 F Pulse Rate 100 H Respiratory Rate 18 18 17 Blood Pressure 123/59 L Pulse Oximetry 98 02/07/18 00:00 02/07/18 06:07 02/07/18 06:45 Temperature 98.3 F Pulse Rate 104 H Respiratory Rate 17 18 18 Blood Pressure 130/60 Pulse Oximetry 94 L 02/07/18 08:00 Temperature 98.1 F Pulse Rate 113 H Respiratory Rate 16 Blood Pressure 119/55 L Pulse Oximetry 96 Intake & Output 02/06/18 02/07/18 02/07/18 18:59 06:59 18:59 Intake Total 1650 / 1650 250 / 250 100 / 100 Balance 1650 / 1650 250 / 250 100 / 100 Weight 93 kg Intake: IV 550 / 550 250 / 250 100 / 100 Ofirmev Inj 1,000 mg In 100 ml 200 / 200 100 / 100 @ 400 mls/hr IV.SIG Q12H [facility] Rx #:[id number] Vancomycin Inj 1,000 MG In NS 250 / 250 250 / 250 Inj 250 ML @ 200 mls/hr IV.SIG Q12H [facility] Rx#:[id number] Ancef Inj 2,000 MG In NS Inj 80 100 / 100 ML @ 200 mls/hr IV.SIG Q8H [facility] Rx#:[id number] Oral 1100 / 1100 Other: # Voids 3 4 Date of Last Bowel Movement 02/05/18 02/07/18 02/07/18 # Bowel Movements 1 Narrative: Left lower extremity: Clean reinforce dressings noted. Mild swelling surrounding the hip. Mild tenderness with passive range of motion of the hip. Active dorsiflexion plantar flexion of foot. Good capillary refills and distal pulses. Results - Labs CBC & Chem 7: 02/06/18 04:39 Microbiology 02/05/18 10:08 Tissue - Other Gram Stain - Final 02/05/18 10:08 Tissue - Other Wound Culture - Preliminary No growth in 48 hours 02/05/18 10:08 Tissue - Hip Gram Stain - Final 02/05/18 10:08 Tissue - Hip Wound Culture - Preliminary No growth in 48 hours 02/05/18 10:08 Tissue - Hip Gram Stain - Final 02/05/18 10:08 Tissue - Hip Wound Culture - Preliminary No growth in 48 hours 02/05/18 10:08 Tissue - Other Acid Fast Bacilli Smear - Final No acid fast bacilli seen 02/05/18 10:08 Tissue - Hip Acid Fast Bacilli Smear - Final No acid fast bacilli seen 02/05/18 10:08 Tissue - Hip Acid Fast Bacilli Smear - Final No acid fast bacilli seen 02/05/18 10:08 Other Fungal Smear - Final No fungal elements seen 02/05/18 10:08 Tissue - Hip Fungal Smear - Final No fungal elements seen 02/05/18 10:08 Tissue - Hip Fungal Smear - Final No fungal elements seen - Procedures Left anterior total hip arthroplasty with removal of antibiotic spacer 02/05/18 Dr Tavares Assessment and Plan - Problem List (1) Status post left hip replacement Code(s): Z96.642 - Presence of left artificial hip joint Status: Acute - Assessment and Plan Left anterior total hip arthroplasty with removal of antibiotic spacer POD 2 Physical therapy weightbearing as tolerated twice daily Begin changing dressings tomorrow with dry dressings only. We will begin adding Xeroform POD 10 Xarelto daily Incentive spirometry DAT hose and sequentials Follow cultures. Negative thus far. We will plan on discharge to home on Friday if doing well with physical therapy and home health care is arranged [facility] is appropriate from orthopedic standpoints
[2018-02-08] MEDS: oxyCODONE/Acetaminophen 10/325 Tablet PO PRN ×3 (02:09→13:17)
--- NOTE | 2018-02-08 08:53 | P.PNOP ---
Subjective Interval history: Patient is awake and alert. He feels ready for discharge to home today. Patient states he already has a walker and pain medication at home. Physical Exam Vital signs: Vital Signs 02/07/18 12:00 02/07/18 16:00 02/07/18 20:00 Temperature 98.5 F 98.7 F 98.3 F Pulse Rate 92 H 95 H 110 H Respiratory Rate 14 16 17 Blood Pressure 124/55 L 130/63 169/80 H Pulse Oximetry 95 98 98 02/08/18 00:00 02/08/18 02:00 Temperature 98.5 F Pulse Rate 102 H Respiratory Rate 17 17 Blood Pressure 146/75 H Pulse Oximetry 95 Intake & Output 02/07/18 02/08/18 02/08/18 18:59 06:59 18:59 Intake Total 940 / 940 Balance 940 / 940 Weight 93.6 kg Intake: IV 100 / 100 Ofirmev Inj 1,000 mg In 100 ml 100 / 100 @ 400 mls/hr IV.SIG Q12H [facility] Rx #:[id number] Oral 840 / 840 Other: # Voids 5 4 Date of Last Bowel Movement 02/07/18 02/07/18 # Bowel Movements 2 Narrative: Dressing dry and intact. Tender to palpation with mild swelling around incision site. Appropriate range of motion expected post operatively. Freely able to move distal digits. No calf pain. Negative Beryl's sign. Good cap refill. 2+ pedal pulses. Neurovascular intact. Results - Labs CBC & Chem 7: 02/06/18 04:39 Microbiology 02/05/18 10:08 Tissue - Other Gram Stain - Final 02/05/18 10:08 Tissue - Other Wound Culture - Final No growth in 72 hours (aerobically and anaerobically ) 02/05/18 10:08 Tissue - Hip Gram Stain - Final 02/05/18 10:08 Tissue - Hip Wound Culture - Final No growth in 72 hours (aerobically and anaerobically ) 02/05/18 10:08 Tissue - Hip Gram Stain - Final 02/05/18 10:08 Tissue - Hip Wound Culture - Final No growth in 72 hours (aerobically and anaerobically ) - Procedures Left anterior total hip arthroplasty with removal of antibiotic spacer 02/05/18 Dr Tavares Assessment and Plan - Problem List (1) Status post left hip replacement Code(s): Z96.642 - Presence of left artificial hip joint Status: Acute - Assessment and Plan Left anterior total hip arthroplasty with removal of antibiotic spacer POD 3 Physical therapy weightbearing as tolerated twice daily Daily dry dressings only. We will begin adding Xeroform POD 10 Xarelto daily Incentive spirometry DAT hose and sequentials Follow cultures. Negative thus far. Clear for discharge from a orthopedic standpoint to home with home health care
[2018-02-08 09:22] VITALS: BP 120/71; PULSE 88; TEMP 98.1; O2SAT 98
[2018-02-08] MEDS: Celecoxib 200 MG Capsule PO SCH (09:27)
[2018-02-08] MEDS: Senna/Docusate Sodium 8.6/50 MG Tablet PO SCH (09:27)
[2018-02-08] MEDS: Calcium/Vitamin D 250/125 MG Tablet PO SCH ×2 (09:27→13:17)
[2018-02-08] MEDS: Rivaroxaban 10 MG Tablet PO SCH (09:31)
[2018-02-08 10:23] VITALS: RESP 18
== END 2018-02-08 14:15 | disposition home health service (06) ==
LOC: HSDI 05:17 → N06 14:12
PROVIDERS: ADMIT Orthopaedic Surgery Orthopaedic Trauma; ATTEND Orthopaedic Surgery Orthopaedic Trauma
DX: Z79.82 Long term (current) use of aspirin; Z87.891 Personal history of nicotine dependence; T84.52XD Infection and inflammatory reaction due to internal left hip prosthesis, subsequent encounter; M16.12 Unilateral primary osteoarthritis, left hip